=== PATIENT | female | born 1955 | race Caucasian/White ===

== ENCOUNTER 2021-08-05 13:46 | Outpatient (REF) | payer MEDICARE, SELFPAY ==
--- NOTE | ~2021-08-05 | XR_ITS ---
EXAMINATION: XR CHEST CLINICAL INFORMATION: Cough COMPARISON: None TECHNIQUE: 2 views of the chest were obtained. FINDINGS: Cardiac silhouette is normal in size. The lungs are well aerated. No gross lobar consolidation. Lung markings are slightly more prominent projecting over the right lung base, nonspecific. No pleural effusion or pneumothorax. Mild degenerative changes of the spine. XR/XR chest 2V IMPRESSION: Lung markings are slightly more prominent projecting over the right lung base. This is a nonspecific finding. This may represent nothing more than attenuation artifact, however, a developing infiltrate would also be within the differential. Unfortunately there are no prior images available for comparison. Clinical correlation is recommended.
== END 2021-08-05 13:47 | disposition home or self-care (01) ==
LOC: HO.HMGCX 13:46
PROVIDERS: PCP Internal Medicine; Visit Provider Physician Assistant
DX: R05.9 Cough, unspecified (principal)
CPT/HCPCS: 71046

== ENCOUNTER 2021-09-01 15:37 | Outpatient (REF) | payer MEDICARE, SELFPAY ==
--- NOTE | ~2021-09-01 | XR_ITS ---
EXAMINATION: XR CHEST CLINICAL INFORMATION: Covid 19 COMPARISON: August 05, 2021 TECHNIQUE: 2 views of the chest were obtained. FINDINGS: There is a region of scarring noted within the right middle lobe. Scarring noted at the left lung base. No confluent pneumonitis identified. No pneumothorax or pleural effusion. Heart normal size. No evidence of. XR/XR chest 2V IMPRESSION: No acute disease.
== END 2021-09-01 15:38 | disposition home or self-care (01) ==
LOC: HO.HMGCX 15:37
PROVIDERS: Visit Provider Internal Medicine
DX: U07.1 COVID-19 (principal)
CPT/HCPCS: 71046

== ENCOUNTER 2021-12-15 11:23 | Outpatient (REF) | payer MEDICARE, SELFPAY ==
[2021-12-15 13:55] LABS: MANUAL DIFF FLAG NO
[2021-12-15 13:58] LABS: Basophils Percent Auto 0.1 % (0-2); Eosinophils Absolute Auto 0.1 X10*3/uL (0.0-0.4); Hematocrit 42.5 % (37.0-47.0); Hemoglobin 14.2 g/dl (12.0-16.0); Imm Gran Abs Auto 0.06 X10*3/uL (0.00-0.03); Imm Gran Pct Auto 0.8 % (0.0-0.4); Lymphocytes Absolute Auto 2.5 X10*3/uL (1.2-4.9); Lymphocytes Percent Auto 32.7 % (20-40); Mean Corpuscular HGB Conc 33.4 g/dl (31.0-35.0); Mean Corpuscular Hemoglobin 31.6 pg (27.0-33.0); Mean Corpuscular Volume 94.7 fL (80.0-98.0); Mean Platelet Volume 11.3 fL (9.4-12.3); Monocytes Absolute Auto 0.6 X10*3/uL (0.1-1.2); Monocytes Percent Auto 7.2 % (2-11); Neutrophils Absolute Auto 4.5 x10*3/uL (2.0-8.3); Neutrophils Percent Auto 58.2 % (45-73); Platelet Count 257 X10*3/uL (160-400); Red Blood Count 4.49 X10*6/uL (4.20-5.50); Red Cell Distribution Width 13.4 % (11.0-16.0); White Blood Count 7.8 X10*3/uL (4.8-10.8)
[2021-12-15 14:13] LABS: Alanine Aminotransferase 15 U/L (0-31); Alkaline Phosphatase 66 U/L (39-117); Anion Gap 9 (12-20); Aspartate Amino Transferase 20 U/L (5-31); Bilirubin Total 0.4 mg/dL (0.0-1.0); Blood Urea Nitrogen 10 mg/dL (9-16); Calcium 9.2 mg/dL (8.4-10.2); Carbon Dioxide 30 mmol/L (22-29); Chloride 106 mmol/L (96-108); Estimated Glomerular Filt Rate > 60; Glucose Random 73 mg/dL (60-115); Potassium 4.1 mmol/L (3.3-5.1); Sodium 141 mmol/L (135-145); Total Protein 6.2 g/dL (6.5-8.0)
[2021-12-15 14:35] LABS: TSH reflex Free T4 1.03 uIU/mL (0.32-4.0)
[2021-12-17 04:47] LABS: LDL Cholesterol Direct 169 mg/dL (<100)
== END 2021-12-15 11:24 | disposition home or self-care (01) ==
LOC: HO.HMGCLDS 11:23
PROVIDERS: PCP Internal Medicine; Visit Provider Internal Medicine
DX: E78.9 Disorder of lipoprotein metabolism, unspecified (principal); F33.41 Major depressive disorder, recurrent, in partial remission; G47.9 Sleep disorder, unspecified; I10 Essential (primary) hypertension; Z72.0 Tobacco use
CPT/HCPCS: 36415; 80053; 83721; 84443; 85025

== ENCOUNTER → 2022-01-17 12:20 | Outpatient (BNVA) | payer MEDICARE, SELFPAY | PROVIDERS: PCP Internal Medicine; Referring Provider Internal Medicine; Visit Provider Nurse Practitioner | DX: K58.2 Mixed irritable bowel syndrome (principal); K80.80 Other cholelithiasis without obstruction; K21.9 Gastro-esophageal reflux disease without esophagitis; R11.2 Nausea with vomiting, unspecified; I10 Essential (primary) hypertension; E78.00 Pure hypercholesterolemia, unspecified; F17.210 Nicotine dependence, cigarettes, uncomplicated; Z88.2 Allergy status to sulfonamides; Z88.8 Allergy status to other drugs, medicaments and biological substances | CPT/HCPCS: 99202 ==

== ENCOUNTER 2022-01-18 11:13 | Outpatient (REF) | payer MEDICARE, SELFPAY ==
--- NOTE | 2022-01-18 13:10 | PFT_ITS ---
FLOWS: FEV1 113% of predicted at 2.69 L. FVC 107% of predicted at 3.36 L. FEV1 to FVC ratio of 0.80. No bronchodilator response except in small to medium airways. LUNG VOLUMES: Total lung capacity 103% of predicted at 5.22 L. Residual volume 86% of predicted at 1.83 L. Slow vital capacity 115% of predicted at 3.39 L. Expiratory reserve volume 76% of predicted at 0.58 L. Diffusion capacity is moderately decreased. In comparison to pulmonary function test from February of 2015, FEV1, FVC, RV, and SVC have been without significant changes; total lung capacity has increased by 0.22 L; expiratory reserve volume has increased by 0.36 L; diffusion capacity has been without significant changes. IMPRESSION: No obstructive or restrictive ventilatory defect. No bronchodilator response except in small to medium airways. Decreased diffusion capacity suggests emphysema. MD DEBI Anderson/MODL / [id number]
== END 2022-01-18 11:14 | disposition home or self-care (01) ==
LOC: HO.RESP 11:13
PROVIDERS: PCP Internal Medicine; Visit Provider Internal Medicine
DX: R06.02 Shortness of breath (principal); Z72.0 Tobacco use
CPT/HCPCS: 94060; 94727; 94729

== ENCOUNTER → 2022-02-10 10:33 | Outpatient (BNVA) | payer MEDICARE, SELFPAY | PROVIDERS: PCP Internal Medicine; Visit Provider Internal Medicine | DX: U09.9 Post COVID-19 condition, unspecified (principal); J43.9 Emphysema, unspecified; F17.210 Nicotine dependence, cigarettes, uncomplicated | CPT/HCPCS: 99202 ==

== ENCOUNTER 2022-03-21 09:56 | Outpatient (REF) | payer MEDICARE, SELFPAY ==
[2022-03-24 08:21] LABS: HPV mRNA E6/E7 rflx Not Detected (Not Detected)
== END 2022-03-21 09:57 | disposition home or self-care (01) ==
LOC: HO.LAB 09:56
PROVIDERS: PCP Internal Medicine; Visit Provider Obstetrics & Gynecology
DX: Z01.419 Encounter for gynecological examination (general) (routine) without abnormal findings (principal); Z11.51 Encounter for screening for human papillomavirus (HPV)
CPT/HCPCS: 87624; 88142

== ENCOUNTER → 2022-04-04 10:46 | Outpatient (BNVA) | payer MEDICARE, SELFPAY | PROVIDERS: PCP Internal Medicine; Visit Provider Internal Medicine | DX: R05.9 Cough, unspecified (principal); Z72.0 Tobacco use | CPT/HCPCS: 99212 ==

== ENCOUNTER → 2022-04-26 11:02 | Outpatient (BNVA) | payer MEDICARE, SELFPAY | PROVIDERS: PCP Internal Medicine; Visit Provider Nurse Practitioner | DX: K58.2 Mixed irritable bowel syndrome (principal); Z90.49 Acquired absence of other specified parts of digestive tract | CPT/HCPCS: 99212 ==

== ENCOUNTER 2022-07-22 13:26 | Outpatient (REF) | payer MEDICARE, SELFPAY ==
--- NOTE | ~2022-07-22 | CT_ITS ---
EXAMINATION: CT CHEST SCREENING CLINICAL INFORMATION: Current smoker. 36 pack-year history. COMPARISON: Previous chest x-ray, most recent August 2021. TECHNIQUE: Multidetector volumetric CT imaging of the chest is performed without contrast using low dose technique. Additional 2D coronal and sagittal reformatted images and axial 3D maximum intensity projection (MIP) images are generated on the CT workstation. This CT examination was performed using dose optimization techniques as appropriate, variously including the following: *Automated exposure control *Adjustment of mA and/or kV according to patient size (this includes techniques or standardized protocols for targeted exams where dose is matched to indication/reason for exam; i.e. extremities or head) *Use of iterative reconstruction technique DLP: 50 mGy-cm. FINDINGS: LUNGS: There is scarring or subsegmental atelectasis at the lung bases in the right middle lobe and lingula. There are patchy areas of increased ground-glass attenuation at the lung bases in the bilateral lower lobes; on the right, dependently in the right lower lobe posterior medially axial image 262, laterally axial image 321 and posteriorly axial image 368 series 5; and on the left in the dependent posterior left lower lobe, for example axial image 374 series 5 and more superior posterior medially, adjacent to the spine axial image 252 series 5. Appearance is questionable for early interstitial lung disease versus dependent atelectasis. Follow-up imaging in the prone position would help differentiate this. No pulmonary nodule. No endobronchial or endotracheal lesion. MEDIASTINUM: Heart size is normal. Trace pericardial effusion or thickening. Mild coronary artery calcification. Normal caliber thoracic aorta. No enlarged hilar or mediastinal lymph nodes. CORONARY ARTERY CALCIFICATION: Mild. PLEURA: There is no pleural effusion. No pleural mass or thickening. AXILLA: No lymphadenopathy. UPPER ABDOMEN: The gallbladder has been removed. OSSEOUS STRUCTURES: Degenerative changes of the spine. CT/CT lung screening IMPRESSION: No pulmonary nodule is seen. Subsegmental atelectasis in the right middle lobe and lingula. Bilateral lower lobe peripheral or subpleural areas of increased ground-glass attenuation. Appearance is questionable for early interstitial lung disease versus dependent atelectasis. Prone imaging on subsequent exam would help differentiate this. Mild coronary artery calcification. Trace pericardial effusion or thickening. ASSESSMENT: Lung-RADS category 2: Benign. RECOMMENDATION: Annual low-dose chest CT follow-up recommended.
== END 2022-07-22 13:27 | disposition home or self-care (01) ==
LOC: HO.CT 13:26
PROVIDERS: PCP Internal Medicine; Visit Provider Physician Assistant Medical
DX: Z12.2 Encounter for screening for malignant neoplasm of respiratory organs (principal); F17.210 Nicotine dependence, cigarettes, uncomplicated
CPT/HCPCS: 71271; G0296

== ENCOUNTER → 2022-08-23 11:11 | Outpatient (BNVA) | payer MEDICARE, SELFPAY | PROVIDERS: PCP Internal Medicine; Visit Provider Nurse Practitioner | DX: K91.5 Postcholecystectomy syndrome (principal); K58.2 Mixed irritable bowel syndrome; K21.9 Gastro-esophageal reflux disease without esophagitis | CPT/HCPCS: 99212 ==

== ENCOUNTER 2022-09-13 09:42 | Outpatient (REF) | payer MEDICARE, SELFPAY ==
[2022-09-13 11:32] LABS: MANUAL DIFF FLAG NO
[2022-09-13 11:44] LABS: Basophils Percent Auto 0.2 % (0-2); Eosinophils Absolute Auto 0.1 X10*3/uL (0.0-0.4); Eosinophils Percent Auto 1.3 % (0-4); Hematocrit 43.3 % (37.0-47.0); Hemoglobin 14.5 g/dl (12.0-16.0); Imm Gran Abs Auto 0.01 X10*3/uL (0.00-0.03); Imm Gran Pct Auto 0.2 % (0.0-0.4); Lymphocytes Absolute Auto 2.3 X10*3/uL (1.2-4.9); Lymphocytes Percent Auto 36.4 % (20-40); Mean Corpuscular HGB Conc 33.5 g/dl (31.0-35.0); Mean Corpuscular Hemoglobin 30.7 pg (27.0-33.0); Mean Corpuscular Volume 91.5 fL (80.0-98.0); Mean Platelet Volume 10.9 fL (9.4-12.3); Monocytes Absolute Auto 0.5 X10*3/uL (0.1-1.2); Neutrophils Absolute Auto 3.4 x10*3/uL (2.0-8.3); Neutrophils Percent Auto 53.9 % (45-73); Platelet Count 293 X10*3/uL (160-400); Red Blood Count 4.73 X10*6/uL (4.20-5.50); White Blood Count 6.3 X10*3/uL (4.8-10.8)
[2022-09-13 12:02] LABS: Appearance Urine Cloudy; Color Urine Yellow; Glucose Urine UA Negative (Negative); Leukocyte Esterase Urine Small (1+) (Negative); Nitrite Urine Positive (Negative); PH 5.5 (5.0-9.0); Specific Gravity - Urine >= 1.030 (1.005-1.025); UMIC TRIGGER UACC YES; Urine Blood Negative (Negative); Urine Ketones Negative (Negative); Urine Protein Trace mg/dL (Neg-Trace)
[2022-09-13 12:14] LABS: Alanine Aminotransferase 18 U/L (0-31); Alkaline Phosphatase 82 U/L (39-117); Anion Gap 13 (12-20); Aspartate Amino Transferase 20 U/L (5-31); Bilirubin Total 0.6 mg/dL (0.0-1.0); Blood Urea Nitrogen 9 mg/dL (9-16); Calcium 9.3 mg/dL (8.4-10.2); Carbon Dioxide 25 mmol/L (22-29); Chloride 110 mmol/L (96-108); Estimated Glomerular Filt Rate > 60; Glucose Random 95 mg/dL (60-115); Potassium 4.5 mmol/L (3.3-5.1); Sodium 143 mmol/L (135-145); TSH reflex Free T4 0.84 uIU/mL (0.32-4.0)
[2022-09-13 13:07] LABS: UACC Culture Trigger YES; WBC Urine 21-50 /HPF (0-5)
[2022-09-13 13:08] LABS: Bacteria Urine 2+ (None Seen); RBC Urine 0-2 /HPF (0-2)
[2022-09-13 13:10] LABS: Hyaline Casts Urine 0-2 /LPF (0-2)
[2022-09-14 07:26] LABS: LDL Cholesterol Direct 129 mg/dL (<100)
== END 2022-09-13 09:43 | disposition home or self-care (01) ==
LOC: HO.HMGCLDS 09:42
PROVIDERS: PCP Internal Medicine; Visit Provider Internal Medicine
DX: I10 Essential (primary) hypertension (principal)
CPT/HCPCS: 36415; 80053; 81001; 81003; 83721; 84443; 84484; 85025; 87086

== ENCOUNTER → 2022-12-20 15:31 | Outpatient (BNVA) | payer MEDICARE, SELFPAY | PROVIDERS: PCP Internal Medicine; Visit Provider Nurse Practitioner | DX: K91.5 Postcholecystectomy syndrome (principal); K21.9 Gastro-esophageal reflux disease without esophagitis; K58.2 Mixed irritable bowel syndrome | CPT/HCPCS: 99212 ==

== ENCOUNTER → 2023-01-31 15:28 | Outpatient (BNVA) | payer MEDICARE, SELFPAY | PROVIDERS: PCP Internal Medicine; Referring Provider Internal Medicine; Visit Provider Nurse Practitioner | DX: K91.5 Postcholecystectomy syndrome (principal); K21.9 Gastro-esophageal reflux disease without esophagitis; K58.2 Mixed irritable bowel syndrome | CPT/HCPCS: 99212 ==

== ENCOUNTER 2023-04-07 12:15 | Outpatient (REF) | payer MEDICARE, SELFPAY ==
[2023-04-07 13:43] LABS: MANUAL DIFF FLAG NO
[2023-04-07 13:54] LABS: Basophils Percent Auto 0.1 % (0-2); Eosinophils Absolute Auto 0.2 X10*3/uL (0.0-0.4); Eosinophils Percent Auto 2.1 % (0-4); Hematocrit 40.7 % (37.0-47.0); Hemoglobin 13.7 g/dl (12.0-16.0); Imm Gran Abs Auto 0.03 X10*3/uL (0.00-0.03); Imm Gran Pct Auto 0.4 % (0.0-0.4); Lymphocytes Absolute Auto 2.3 X10*3/uL (1.2-4.9); Lymphocytes Percent Auto 32.8 % (20-40); Mean Corpuscular HGB Conc 33.7 g/dl (31.0-35.0); Mean Corpuscular Hemoglobin 31.4 pg (27.0-33.0); Mean Corpuscular Volume 93.1 fL (80.0-98.0); Mean Platelet Volume 10.9 fL (9.4-12.3); Monocytes Absolute Auto 0.6 X10*3/uL (0.1-1.2); Neutrophils Absolute Auto 3.9 x10*3/uL (2.0-8.3); Neutrophils Percent Auto 55.6 % (45-73); Platelet Count 259 X10*3/uL (160-400); Red Blood Count 4.37 X10*6/uL (4.20-5.50); Red Cell Distribution Width 13.6 % (11.0-16.0); White Blood Count 7.1 X10*3/uL (4.8-10.8)
[2023-04-07 14:07] LABS: Alanine Aminotransferase 20 U/L (0-31); Albumin Level 3.8 g/dL (3.5-5.0); Alkaline Phosphatase 87 U/L (39-117); Anion Gap 12 (12-20); Aspartate Amino Transferase 25 U/L (5-31); Bilirubin Total 0.9 mg/dL (0.0-1.0); Blood Urea Nitrogen 9 mg/dL (9-16); Calcium 9.2 mg/dL (8.4-10.2); Carbon Dioxide 27 mmol/L (22-29); Chloride 106 mmol/L (96-108); Estimated Glomerular Filt Rate > 60; Glucose Random 118 mg/dL (60-115); Potassium 4.1 mmol/L (3.3-5.1); Sodium 141 mmol/L (135-145); Total Protein 5.9 g/dL (6.5-8.0)
== END 2023-04-07 12:16 | disposition home or self-care (01) ==
LOC: HO.HMGCLDS 12:15
PROVIDERS: PCP Internal Medicine; Visit Provider Internal Medicine
DX: I10 Essential (primary) hypertension (principal); E78.5 Hyperlipidemia, unspecified; J44.9 Chronic obstructive pulmonary disease, unspecified; K21.9 Gastro-esophageal reflux disease without esophagitis; Z72.0 Tobacco use
CPT/HCPCS: 36415; 80053; 85025

== ENCOUNTER → 2023-04-17 10:20 | Outpatient (BNVA) | payer MEDICARE, SELFPAY | PROVIDERS: PCP Internal Medicine; Visit Provider Internal Medicine | DX: J44.9 Chronic obstructive pulmonary disease, unspecified (principal); R05.9 Cough, unspecified; F17.210 Nicotine dependence, cigarettes, uncomplicated | CPT/HCPCS: 99212 ==

== ENCOUNTER → 2023-05-01 14:09 | Outpatient (BNVA) | payer MEDICARE, SELFPAY | PROVIDERS: PCP Internal Medicine; Visit Provider Obstetrics & Gynecology | DX: Z01.419 Encounter for gynecological examination (general) (routine) without abnormal findings (principal) | CPT/HCPCS: G0101 ==

== ENCOUNTER 2023-05-26 09:08 | Outpatient (AMB) | payer MEDICARE, SELFPAY ==
--- NOTE | 2023-05-26 09:10 | MHC.PC.OV ---
Vital Signs 05/26/23 09:12 Height 5 ft 5 in Weight 165 lb BMI 27.5 BP 128/74 Blood Pressure Location Rt brachial Position Sitting Pulse 74 Pulse Source Pulse Oximeter Pulse Oximetry (%) 98 Intake Visit Reasons: 4 Month follow up [employer] [facility] Required: No Accompanied by: Self / Same As Patient Allergies Sulfa (Sulfonamide Antibiotics) Allergy (Mild, Verified 05/26/23 09:10) HIVES inositol niacinate [Niacin No Flush] Allergy (Unknown, Verified 05/26/23 09:10) N/V niacin [Niacin No Flush] Allergy (Unknown, Verified 05/26/23 09:10) N/V Medication List - Last Reconciled 05/26/23 by Pepe Murrieta MD atenolol 25 mg PO DAILY 90 days escitalopram oxalate 10 mg PO DAILY losartan 50 mg PO BID 90 days meloxicam 15 mg PO DAILY PRN pantoprazole 40 mg PO BID valacyclovir 500 mg PO DAILY PRN Tobacco use date assessed: 01/13/23 Fall risk assessment: No Falls in past year Last assessed Fall Risk: 05/26/23 Dental Screening Dental Screen Date: 05/26/23 Did you have a dental visit in the last 12 months?: Yes Did you have a dental problem in the last 6 months where you did not have access to dental care?: No Was dental information given to patient?: Patient has dentist HPI 4 Month follow up HPI Details Patient is 67-year-old female came in today for regular follow-up Last year CT scan of abdomen at [facility] showed some abnormality of her bladder I did place a referral for her to see urologist however patient is not sure if she had seen 1 and I do not have any notes in chart I used a new referral for her she does have sensation urinary tract infection frequently and also have urinary incontinence and is on Detrol Chronic GERD: Continue pantoprazole 40 mg, this is gastroenterology patient has an upcoming appointment with [facility] Lipid disorder: She was started on simvastatin but patient stopped she says that it was causing cramping in her muscles Anxiety/depression is better with Lexapro 10 mg Blood pressure is stable continue medications, patient is on atenolol 20 losartan 50 mg Labs were done last month reviewed Follow-up 4 months [facility] Medical History Anxiety Cough Difficulty sleeping Hyperlipidemia Hypertension, essential Insomnia Osteopenia (~2009) Personal history of nicotine dependence [id number] condition Restless leg syndrome Surgical History History of cholecystectomy (~03/2022) History of colonoscopy History of endometrial ablation History of esophagogastroduodenoscopy (EGD) Family History Father Diabetes Liver cancer Mother HTN (hypertension) Other Mental health disorder Substance use disorder Social History Housing: House Alcohol intake: never Patient Tobacco Use Status: Former Tobacco user Tobacco use type: Cigarette Years Smoked: (onset 20yo, 1/2ppd x 46yrs, 23pyh) e-Cigarette/Vaping Use: Never Used Second Hand Smoke Exposure: Yes service: No Current occupational status: employed Cognitive needs: No Hearing needs: No Vision needs: Yes Female Reproductive History Menstrual Age of Menarche: 11 Questionnaire PHQ-9 Over the last 2 weeks, how often have you been bothered by any of the following problems? 1. Little interest or pleasure in doing things: not at all 2. Feeling down, depressed, or hopeless: not at all 3. Trouble falling or staying asleep, or sleeping too much: not at all 4. Feeling tired or having little energy: not at all 5. Poor appetite or overeating: not at all 6. Feeling bad about yourself - or that you are a failure or have let yourself or your family down: not at all 7. Trouble concentrating on things, such as reading the newspaper or watching television: not at all 8. Moving or speaking so slowly that other people could have noticed. Or the opposite - being so fidgety or restless that you have been moving around a lot more than usual: not at all 9. Thoughts that you would be better off or of hurting yourself in some way: not at all Total score: 0 Depression Screening Interpretation: Negative 34046 - PHQ-9 Billing: Yes Source: Developed by Drs. Vinnie Draper, Casie RibeiroRainer and colleagues, with an educational ella from [employer]. Thrive Questionnaire Date Thrive assessed: 05/26/23 I am a: Patient What is your living situation today?: I have a steady place to live Within the past 12 months, did the food you bought not last and you didn't have the money to get more?: Never true Within the past 12 months, did you worry whether your food would run out before you got money to buy more?: Never true Do you have trouble paying for medicines?: No Do you have trouble getting transportation to medical appointments?: No Do you have trouble paying your heating and electricity bill?: No Do you have trouble taking care of your child, family member or friend?: No Do you have trouble with day-to-day activities such as bathing, preparing meals, shopping, managing finances, etc.?: No Are you currently unemployed and looking for a job?: No Are you interested in more education?: No Please select the resources that you would like help with: None Currently or been in a relationship where the following occur: no concerns reported KELLY-7 AMB Questionnaire KELLY-7 Date KELLY - 7 assessed: 05/26/23 Feeling nervous, anxious, or on edge: 0 = Not at all Not being able to stop or control worryin = Not at all Worrying too much about different things: 0 = Not at all Trouble relaxin = Not at all Being so restless that it is hard to sit still: 0 = Not at all Becoming easily annoyed or irritable: 0 = Not at all Feeling afraid as if something awful might happen: 0 = Not at all Total KELLY-7 score (0-4 normal; 5-9 mild; 10-14 moderate; 15-21 severe): 0 Source: Developed by Drs. Vinnie Draper, Rainer George and colleagues, with an educational ella from [employer]. KELLY-7 Assessment Billing KELLY-7 Assessment Tool: KELLY-7 Assessment 75839 Review of Systems Const Denies chills and Denies fever(s) ENT Denies epistaxis and Denies nasal discharge Card Denies chest pain Resp Denies chest congestion, Denies cough and Denies hemoptysis GI Denies diarrhea and Denies nausea Skin/Breast Denies rash Neuro Reports no additional complaints Psych Reports no additional complaints Endo Reports no additional complaints Physical exam (Primary Care) Vital Signs: Last Vital Signs Pulse 74 05/26/23 09:12 BP 128/74 05/26/23 09:12 Pulse Ox 98 05/26/23 09:12 BMI result Body Mass Index 27.5 Tobacco/Smoking Status: Tobacco use Status Tobacco use date assessed 01/13/23 05/26/23 09:12 Patient Tobacco Use Status Former Tobacco user 05/26/23 09:14 Tobacco use type Cigarette 05/26/23 09:14 e-Cigarette/Vaping Use Never Used 05/26/23 09:14 PHQ-9: PHQ-9 Score PHQ-9: Total score 0 05/26/23 10:54 Depression Screening Interpretation: Negative Thrive Assessment: Date of Thrive Assessment Date Thrive assessed 05/26/23 05/26/23 09:16 Currently or been in a relationship where the following occur: no concerns reported Const General: cooperative, comfortable and no acute distress Orientation/consciousness: patient oriented x3 HENMT Head: Yes normocephalic Eyes General: appearance normal, both eyes and all related structures Neck Neck: Yes supple Resp Effort & Inspection: normal respiratory effort, no cough and no stridor Cardio Rhythm: regular rhythm Heart sounds: S1 normal heart sound present and S2 normal heart sound present Skin General skin exam: turgor normal Neuro General: patient oriented x3, tone normal and moves all extremities Extrem Right lower extremity: no edema Left lower extremity: no edema Assessment and Plan Assessment & Plan (1) Depression, major, recurrent, in partial remission: Code(s): F33.41 - Major depressive disorder, recurrent, in partial remission (2) Hypertension, essential: Code(s): I10 - Essential (primary) hypertension (3) Urine incontinence: Code(s): R32 - Unspecified urinary incontinence (4) Bladder disorder: Code(s): N32.9 - Bladder disorder, unspecified (5) GERD (gastroesophageal reflux disease): Code(s): K21.9 - Gastro-esophageal reflux disease without esophagitis (6) Tobacco abuse: Comment: Patient has history of smoking 1 pack per day for about 40 years and now down to 5-6 cigarettes a day . Counseled thoroughly, and advised to quit, she will try to do it on her own. Code(s): Z72.0 - Tobacco use (7) Emphysema lung: Comment: Because of decreased diffusion capacity, it seems that she may have pulmonary emphysema, even though it was not reported on chest x-ray. Code(s): J43.9 - Emphysema, unspecified (8) Anxiety: Code(s): F41.9 - Anxiety disorder, unspecified (9) Hyperlipidemia: Code(s): E78.5 - Hyperlipidemia, unspecified Plan Patient is 67-year-old female came in today for regular follow-up Last year CT scan of abdomen at [facility] showed some abnormality of her bladder I did place a referral for her to see urologist however patient is not sure if she had seen 1 and I do not have any notes in chart I used a new referral for her she does have sensation urinary tract infection frequently and also have urinary incontinence and is on Detrol Chronic GERD: Continue pantoprazole 40 mg, this is gastroenterology patient has an upcoming appointment with [facility] Lipid disorder: She was started on simvastatin but patient stopped she says that it was causing cramping in her muscles Anxiety/depression is better with Lexapro 10 mg Blood pressure is stable continue medications, patient is on atenolol 20 losartan 50 mg Labs were done last month reviewed Follow-up 4 months Orders: Referrals Urology Referral N32.9 - Bladder disorder, unspecified, R32 - Unspecified urinary incontinence Coding Level of Care Code Est Pt Level 4 (21787) Diagnoses Depression, major, recurrent, in partial remission F33.41 Hypertension, essential I10 Urine incontinence R32 Bladder disorder N32.9 GERD (gastroesophageal reflux disease) K21.9 Tobacco abuse Z72.0 Emphysema lung J43.9 Anxiety F41.9 Hyperlipidemia E78.5 Additional Codes KELLY-7 Assessment Billing - KELLY-7 Assessment Tool: KELLY-7 Assessment [id number] ([id number])
[2023-05-26 09:12] VITALS: BP 128/74; PULSE 74; O2SAT 98; BMI 27.5
== END 2023-05-26 09:38 | disposition home or self-care (01) ==
PROVIDERS: Visit Provider Internal Medicine
DX: I10 Essential (primary) hypertension (principal); F33.41 Major depressive disorder, recurrent, in partial remission; F41.9 Anxiety disorder, unspecified; K21.9 Gastro-esophageal reflux disease without esophagitis; J43.9 Emphysema, unspecified; R32 Unspecified urinary incontinence; N32.9 Bladder disorder, unspecified; Z72.0 Tobacco use; E78.5 Hyperlipidemia, unspecified
CPT/HCPCS: 99214

== ENCOUNTER 2023-07-10 09:16 | Outpatient (AMB) | payer MEDICARE, SELFPAY ==
--- NOTE | 2023-07-10 09:21 | A.OFFVIS_ITS ---
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 07/10/2023? She presents today for an evaluation for bladder disorder/incontinence. She was referred by her PCP Review of PCP's note indicates:'Last year CT scan of abdomen at [facility] showed some abnormality of her bladder. I did place a referral for her to see urologist however patient is not sure if she had seen 1 and I do not have any notes in chart. I used a new referral for her she does have sensation urinary tract infection frequently and also have urinary incontinence and is on Detrol' She is having on and off urinary incontinence. She reports nocturia x 3-4. She states that yesterday she was up 7 times at night to urinate. She states that she used to wear pads on and off due her variable urinary incontinence in the past. She has discontinued taking Detrol. She has had gall bladder surgery in 03/2022. She denies any hematuria. Evaluation today?UA? leukocytes: 1 +; blood: negative. Plan: US of the retroperitoneum was ordered. Follow up office Cystoscopy in 10 weeks. Discussed behavioral modifications for her low urinary tract symptoms of urinary incontinence. Avoid dietary bladder irritants including caffeine, carbonated beverages, and timed voiding. [facility] Medical History Cough Personal history of nicotine dependence [id number] condition Hypertension, essential Insomnia Restless leg syndrome Difficulty sleeping Anxiety Osteopenia (~2009) Hyperlipidemia Surgical History History of cholecystectomy (~03/2022) History of colonoscopy History of esophagogastroduodenoscopy (EGD) History of endometrial ablation Family History Father Diabetes Liver cancer Mother HTN (hypertension) Other Mental health disorder Substance use disorder Social History Housing: House Alcohol intake: never Patient Tobacco Use Status: Former Tobacco user Tobacco use type: Cigarette Years Smoked: (onset 20yo, 1/2ppd x 46yrs, 23pyh) e-Cigarette/Vaping Use: Never Used Second Hand Smoke Exposure: Yes service: No Current occupational status: employed Cognitive needs: No Hearing needs: No Vision needs: Yes Female Reproductive History Menstrual Age of Menarche: 11 Review of Systems Const All systems reviewed & are unremarkable except as noted in HPI and below Reports no additional complaints Eyes Reports no additional complaints ENT Reports no additional complaints Card Denies dyspnea Resp Denies cough and Denies dyspnea GI Reports no additional complaints Reports no additional complaints Musc Reports no additional complaints Skin/Breast Denies rash and Denies unusual bruising Neuro Reports no additional complaints Psych Reports no additional complaints Endo Reports no additional complaints Ishaan/Lymph Reports no additional complaints Aller/Immun Reports no additional complaints Physical Exam Const General: cooperative, healthy appearing and no acute distress Orientation/consciousness: patient oriented x3 HEENT Head: Yes normal to inspection, Yes normocephalic and Yes atraumatic Eyes Conjunctivae: conjunctivae normal Neck Neck: Yes normal visual inspection and Yes trachea midline Chest Chest palpation & inspection: normal inspection of the chest Resp Effort & Inspection: normal respiratory effort Cardio Rate: regular rate GI Inspection: Yes normal to inspection Skin General skin exam: no rashes or lesions noted Neuro General: patient oriented x3 Extrem General: No edema Psych Appearance: grossly normal Office Procedures Post Void Residual Post Residual Void Post Void Residual (PVR): 13 [id number] Void Residual by ultrasound Results AMB Urinalysis, Automated UA Leukoctes 100 Carie/uL Last Edit by SHAYY Butterfield on 07/10/23 09:53 1+, 70 Carie/uL Sammie Viera 07/10/23 09:53 UA Nitrite Negative Last Edit by SHAYY Butterfield on 07/10/23 09:53 UA Urobilinogen 0.2 mg/dL Last Edit by Sammie Viera Tom on 07/10/23 09:5 3 UA Protein 100 mg/dL Last Edit by Sammie Viera [facility] on 07/10/23 09:53 15 mg/dL Sammie Viera 07/10/23 09:53 UA pH 6.0 Last Edit by Sammie Viera [facility] on 07/10/23 09:53 UA Blood 0 Martin/uL Last Edit by Sammie Viera [facility] on 07/10/23 09:53 UA Specific Picher 1.020 Last Edit by Sammie Viera [facility] on 07/10/23 09: 53 UA Ketone Negative Last Edit by Sammie Viera [facility] on 07/10/23 09:53 UA Bilirubin 0 mg/dL Last Edit by Sammie Viera [facility] on 07/10/23 09:53 UA Glucose 0 mg/dL Last Edit by Sammie Viera [facility] on 07/10/23 09:53 Results Reviewed Results Reviewed: Laboratory Last Values Urine pH (Auto) 6.0 07/10/23 09:45 Specific Picher (Auto) 1.020 07/10/23 09:45 Urine Protein (Auto) 100 mg/dL 07/10/23 09:45 Glucose (UA)(Auto) 0 mg/dL 07/10/23 09:45 Urine Ketones (Auto) Negative 07/10/23 09:45 Urine Blood (Auto) 0 Martin/uL 07/10/23 09:45 Urine Nitrite (Auto) Negative 07/10/23 09:45 Urine Bilirubin (Auto) 0 mg/dL 07/10/23 09:45 Urine Urobilinogen (Auto) 0.2 mg/dL 07/10/23 09:45 Leukocyte Esterase (Auto) 100 Carie/uL 07/10/23 09:45 Assessment & Plan Assessment & Plan (1) Nocturia: Code(s): R35.1 - Nocturia (2) Urine incontinence: Code(s): R32 - Unspecified urinary incontinence (3) Renal cyst, left: Code(s): N28.1 - Cyst of kidney, acquired (4) Nicotine dependence, cigarettes, uncomplicated: Comment: (Has past history of smoking half pack a day for about 45 years. Luckily she has quit smoking completely, and has no inclination to go back to smoking . SHE IS COMMENDED FOR QUITTING COMPLETELY. SHOULD STILL CONTINUE TO GO FOR ANNUAL LUNG SCREENING PROGRAM. Code(s): F17.210 - Nicotine dependence, cigarettes, uncomplicated Plan US of the retroperitoneum was ordered.? Follow up office Cystoscopy in 10 weeks. Discussed behavioural modifications for her low urinary tract symptoms of urinary incontinence. Avoid dietary bladder irritants including caffeine, carbonated beverages, and timed voiding. Orders: Orders AMB Post Void Residual by ultrasound Today N39.8 - Other specified disorders of urinary system AMB Urinalysis Automated Today Z13.9 - Encounter for screening, unspecified US retroperitoneal comp Today R32 - Unspecified urinary incontinence, R35.1 - Nocturia Patient Instructions: The patient had an opportunity to ask questions regarding treatment plan. All questions were answered. Imaging, Laboratory studies and physical exam results were discussed and reviewed in detail. No major barriers to understanding were identified. The patient expressed understanding and agreement with the above treatment plan.? ? ? The patient is aware they should contact our office by phone for worsening of their current condition or the appearance of new symptoms. Compliance is encouraged with any medications and followup testing that is ordered.? ? ? It is a privilege to be allowed the opportunity to participate in the urologic care of your patient. If you have any questions or concerns regarding treatment for the above conditions please do not hesitate to contact me. The office telephone contact is [phone].? ? ? This note is constructed in part using voice recognition software. While every effort has been made to ensure accuracy student recruiter errors may have been in cluded.? ? ? Yours sincerely,? ? ? Janae Arguello MD? ? Coding Level of Care Code New Pt Level 4 (62166) Diagnoses Nocturia R35.1 Urine incontinence R32 Renal cyst, left N28.1 Nicotine dependence, cigarettes, uncomplicated F17.210 CPT Codes Post Residual Void - PVR CPT Code: 53293-[id number] Void Residual by ultrasound ([id number])
== END 2023-07-10 10:45 | disposition home or self-care (01) ==
PROVIDERS: PCP Internal Medicine; Visit Provider Urology
DX: R35.1 Nocturia (principal); R32 Unspecified urinary incontinence; N28.1 Cyst of kidney, acquired; F17.210 Nicotine dependence, cigarettes, uncomplicated; Z13.9 Encounter for screening, unspecified
CPT/HCPCS: 99204

== ENCOUNTER → 2023-07-10 09:16 | Outpatient (BNVA) | payer MEDICARE, SELFPAY | PROVIDERS: PCP Internal Medicine; Visit Provider Urology | DX: R35.1 Nocturia (principal); R32 Unspecified urinary incontinence; N28.1 Cyst of kidney, acquired; F17.210 Nicotine dependence, cigarettes, uncomplicated | CPT/HCPCS: 51798; 81003; 99202 ==

== ENCOUNTER → 2023-09-18 10:16 | Outpatient (BNVA) | payer MEDICARE, SELFPAY | PROVIDERS: PCP Internal Medicine; Visit Provider Urology ==

== ENCOUNTER 2023-09-19 15:08 | Outpatient (AMB) | payer MEDICARE, SELFPAY ==
[2023-09-19 15:17] VITALS: BP 136/92; PULSE 70; O2SAT 96; BMI 26.8
--- NOTE | 2023-09-19 15:17 | A.OFFPC_ITS ---
Vital Signs 09/19/23 15:17 Height 5 ft 5 in Weight 161 lb BMI 26.8 BP 136/92 H Blood Pressure Location Rt brachial Position Sitting Pulse 70 Pulse Source Pulse Oximeter Pulse Oximetry (%) 96 Oxygen Delivery Method Room Air Intake Visit Reasons: Sick Visit Allergies Sulfa (Sulfonamide Antibiotics) Allergy (Mild, Verified 09/19/23 15:19) HIVES inositol niacinate [Niacin No Flush] Allergy (Unknown, Verified 09/19/23 15:19) N/V niacin [Niacin No Flush] Allergy (Unknown, Verified 09/19/23 15:19) N/V Medication List - Last Reconciled 09/19/23 by Pepe Murrieta MD atenolol 25 mg PO DAILY 90 days escitalopram oxalate 10 mg PO DAILY losartan 50 mg PO BID 90 days pantoprazole 40 mg PO BID valacyclovir 500 mg PO DAILY PRN Tobacco use date assessed: 09/19/23 Last assessed Fall Risk: 09/19/23 Dental Screening Dental Screen Date: 09/19/23 Did you have a dental visit in the last 12 months?: Yes Did you have a dental problem in the last 6 months where you did not have access to dental care?: No Was dental information given to patient?: Patient has dentist HPI Sick Visit HPI Details Patient came in feeling sick today symptoms started 3 wks ago with cough and chest congestion she says she went to urgent care 2 wks ago, she was told to use decongested an allergy medication [id number] Patient has been using it but still having coughing fits, especially at night She is still having chest congestion and spitting out crackle or phlegm Patient says that she feels exhausted I am treating her with a course of antibiotic and codeine cough syrup to be taken only at night. Patient will return in 10 days to 14 days for follow-up She is requesting some time off, letter provided to be off until next Monday [facility] Medical History Cough Personal history of nicotine dependence [id number] condition Hypertension, essential Insomnia Restless leg syndrome Difficulty sleeping Anxiety Osteopenia (~2009) Hyperlipidemia Surgical History History of cholecystectomy (~03/2022) History of colonoscopy History of esophagogastroduodenoscopy (EGD) History of endometrial ablation Family History Father Diabetes Liver cancer Mother HTN (hypertension) Other Mental health disorder Substance use disorder Housing: House Alcohol intake: never Patient Tobacco Use Status: Former Tobacco user Tobacco use type: Cigarette Years Smoked: (onset 20yo, 1/2ppd x 46yrs, 23pyh) e-Cigarette/Vaping Use: Never Used Second Hand Smoke Exposure: Yes service: No Current occupational status: employed Cognitive needs: No Hearing needs: No Vision needs: Yes Female Reproductive History Menstrual Age of Menarche: 11 Questionnaire PHQ-9 Over the last 2 weeks, how often have you been bothered by any of the following problems? 1. Little interest or pleasure in doing things: more than half the days 2. Feeling down, depressed, or hopeless: more than half the days 3. Trouble falling or staying asleep, or sleeping too much: more than half the days 4. Feeling tired or having little energy: more than half the days 5. Poor appetite or overeating: not at all 6. Feeling bad about yourself - or that you are a failure or have let yourself or your family down: not at all 7. Trouble concentrating on things, such as reading the newspaper or watching television: several days 8. Moving or speaking so slowly that other people could have noticed. Or the opposite - being so fidgety or restless that you have been moving around a lot more than usual: not at all 9. Thoughts that you would be better off or of hurting yourself in some way: not at all Total score: 9 Depression Screening Interpretation: Positive Depression Screening Follow-up: Existing condition and In treatment Depression Screening Done: Yes 20804 - PHQ-9 Billing: Yes Source: Developed by Drs. Vinnie Draper, Casie Ribeiro, Rainer Goodman and colleagues, with an educational ella from [employer]. Thrive Questionnaire Date Thrive assessed: 05/26/23 AUDIT C Alcohol Use Questionnaire (AUDIT-C) 1. How often do you have a drink containing alcohol?: Never 3. How often do you have six or more drinks on one occasion?: Never Total Score: 0 Score Reviewed/Action Taken: Yes KELLY-7 AMB Questionnaire KELLY-7 Date KELLY - 7 assessed: 05/26/23 Source: Developed by Drs. Vinnie Draper, Casie Ribiero, Rainer Goodman and colleagues, with an educational ella from [employer]. Review of Systems Const All systems reviewed & are unremarkable except as noted in HPI and below Physical exam (Primary Care) Vital Signs: Last Vital Signs Pulse 70 09/19/23 15:17 BP 136/92 H 09/19/23 15:17 Pulse Ox 96 09/19/23 15:17 Oxygen Delivery Method Room Air 09/19/23 15:17 BMI result Body Mass Index 26.8 Tobacco/Smoking Status: Tobacco use Status Tobacco use date assessed 09/19/23 09/19/23 15:20 Patient Tobacco Use Status Former Tobacco user 09/19/23 15:19 Tobacco use type Cigarette 09/19/23 15:19 e-Cigarette/Vaping Use Never Used 09/19/23 15:19 Depression Screening Interpretation: Positive Depression Screening Follow-up: Existing condition and In treatment Thrive Assessment: Date of Thrive Assessment Date Thrive assessed 05/26/23 09/19/23 15:19 Const General: no acute distress HENMT Ears: mastoids normal General nose exam: Normal external nose present Throat: Yes posterior oropharynx abnormal Neck Neck: Yes no lymphadenopathy Resp Effort & Inspection: normal respiratory effort Auscultation: clear to auscultation bilaterally Psych Mental Status: mental status grossly normal Assessment and Plan Assessment & Plan (1) Acute bronchitis: Code(s): J20.9 - Acute bronchitis, unspecified Qualifiers: Bronchitis organism: other organism Qualified Code(s): J20.8 - Acute bronchitis due to other specified organisms Plan Patient came in feeling sick today symptoms started 3 wks ago with cough and chest congestion she says she went to urgent care 2 wks ago, she was told to use decongested an allergy medication [id number] Patient has been using it but still having coughing fits, especially at night She is still having chest congestion and spitting out crackle or phlegm Patient says that she feels exhausted I am treating her with a course of antibiotic and codeine cough syrup to be taken only at night. Patient will return in 10 days to 14 days for follow-up She is requesting some time off, letter provided to be off until next Monday Medications: New azithromycin Take 2 tablets today then 1 daily 250 mg PO ONCE 6 tabs 0RF 5 days J06.9 - Acute upper respiratory infection, unspecified codeine-guaifenesin 10-100 mg/5 mL 10 mL PO .qhs 120 mL 0RF cough 10 days Coding Level of Care Code Est Pt Level 3 (14136) Diagnoses Acute bronchitis due to other specified organisms J20.8 Bronchitis organism: other organism
== END 2023-09-19 15:48 | disposition home or self-care (01) ==
PROVIDERS: PCP Internal Medicine; Visit Provider Internal Medicine
DX: J20.8 Acute bronchitis due to other specified organisms (principal)
CPT/HCPCS: 99213

== ENCOUNTER 2023-10-06 13:41 | Outpatient (AMB) | payer MEDICARE, SELFPAY ==
--- NOTE | 2023-10-06 14:05 | MHC.PC.OV ---
Vital Signs 10/06/23 14:06 Height 5 ft 5 in Weight 163 lb BMI 27.1 BP 120/70 Blood Pressure Location Rt brachial Position Sitting Pulse 61 Pulse Source Pulse Oximeter Pulse Oximetry (%) 94 Oxygen Delivery Method Room Air Intake Visit Reasons: Follow Up(Meds ) Allergies Sulfa (Sulfonamide Antibiotics) Allergy (Mild, Verified 10/06/23 14:06) HIVES inositol niacinate [Niacin No Flush] Allergy (Unknown, Verified 10/06/23 14:06) N/V niacin [Niacin No Flush] Allergy (Unknown, Verified 10/06/23 14:06) N/V Medication List - Last Reconciled 10/06/23 by Pepe Murrieta MD atenolol 25 mg PO DAILY 90 days escitalopram oxalate 10 mg PO DAILY losartan 50 mg PO BID 90 days pantoprazole 40 mg PO BID valacyclovir 500 mg PO DAILY PRN Tobacco use date assessed: 10/06/23 Fall risk assessment: 2 + Falls in past year Last assessed Fall Risk: 10/06/23 Dental Screening Dental Screen Date: 10/06/23 Did you have a dental visit in the last 12 months?: Yes Did you have a dental problem in the last 6 months where you did not have access to dental care?: No Was dental information given to patient?: Patient has dentist HPI Follow Up(Meds ) HPI Details Patient is 68-year-old female came in today for regular follow-up Patient have smoker's cough, she had acute bronchitis few months ago and then COVID again. Which has exacerbated her cough Chronic GERD: Continue pantoprazole 40 mg, patient is seeing Gastroenterology [facility] Lipid disorder: She was started on simvastatin but patient stopped she says that it was causing cramping in her muscles Continue diet-controlled Anxiety/depression is better with Lexapro 10 mg Blood pressure is stable continue medications, patient is on atenolol 20 losartan 50 mg Labs were done March of this year she is due for another set of lab Patient has appointment in December Her [facility] paperwork filled patient took few days off when she had acute bronchitis in August [facility] Medical History Cough Personal history of nicotine dependence [id number] condition Hypertension, essential Insomnia Restless leg syndrome Difficulty sleeping Anxiety Osteopenia (~2009) Hyperlipidemia Surgical History History of cholecystectomy (~03/2022) History of colonoscopy History of esophagogastroduodenoscopy (EGD) History of endometrial ablation Family History Father Diabetes Liver cancer Mother HTN (hypertension) Other Mental health disorder Substance use disorder Social History Housing: House Alcohol intake: never Patient Tobacco Use Status: Former Tobacco user Tobacco use type: Cigarette Years Smoked: (onset 20yo, 1/2ppd x 46yrs, 23pyh) e-Cigarette/Vaping Use: Never Used Second Hand Smoke Exposure: Yes service: No Current occupational status: employed Cognitive needs: No Hearing needs: No Vision needs: Yes Female Reproductive History Menstrual Age of Menarche: 11 Questionnaire Thrive Questionnaire Date Thrive assessed: 05/26/23 KELLY-7 AMB Questionnaire KELLY-7 Date KELLY - 7 assessed: 05/26/23 Source: Developed by Drs. Vinnie Draper, Casie Ribeiro, Rainer Goodman and colleagues, with an educational ella from [employer]. Review of Systems Const Denies chills and Denies fever(s) ENT Denies epistaxis and Denies nasal discharge Card Denies chest pain Resp Denies chest congestion and Denies hemoptysis GI Denies diarrhea and Denies nausea Skin/Breast Denies rash Neuro Reports no additional complaints Psych Reports no additional complaints Endo Reports no additional complaints Physical exam (Primary Care) Vital Signs: Last Vital Signs Pulse 61 10/06/23 14:06 BP 120/70 10/06/23 14:06 Pulse Ox 94 10/06/23 14:06 Oxygen Delivery Method Room Air 10/06/23 14:06 BMI result Body Mass Index 27.1 Tobacco/Smoking Status: Tobacco use Status Tobacco use date assessed 10/06/23 10/06/23 14:07 Patient Tobacco Use Status Former Tobacco user 10/06/23 14:07 Tobacco use type Cigarette 10/06/23 14:07 e-Cigarette/Vaping Use Never Used 10/06/23 14:07 Thrive Assessment: Date of Thrive Assessment Date Thrive assessed 05/26/23 10/06/23 14:07 Const General: cooperative, comfortable and no acute distress Orientation/consciousness: patient oriented x3 HENMT Head: Yes normocephalic Eyes General: appearance normal, both eyes and all related structures Neck Neck: Yes supple Resp Effort & Inspection: normal respiratory effort, no cough and no stridor Cardio Rhythm: regular rhythm Heart sounds: S1 normal heart sound present and S2 normal heart sound present Skin General skin exam: turgor normal Neuro General: patient oriented x3, tone normal and moves all extremities Extrem Right lower extremity: no edema Left lower extremity: no edema Assessment and Plan Assessment & Plan (1) Hypertension, essential: Code(s): I10 - Essential (primary) hypertension (2) GERD (gastroesophageal reflux disease): Code(s): K21.9 - Gastro-esophageal reflux disease without esophagitis Qualifiers: Esophagitis presence: without esophagitis Qualified Code(s): K21.9 - Gastro-esophageal reflux disease without esophagitis (3) Depression, major, recurrent, in partial remission: Code(s): F33.41 - Major depressive disorder, recurrent, in partial remission (4) Anxiety: Code(s): F41.9 - Anxiety disorder, unspecified (5) Smokers' cough: Code(s): J41.0 - Simple chronic bronchitis (6) Tired: Code(s): R53.83 - Other fatigue (7) Hyperlipidemia: Code(s): E78.5 - Hyperlipidemia, unspecified Qualifiers: Hyperlipidemia type: pure hypercholesterolemia Qualified Code(s): E78.00 - Pure hypercholesterolemia, unspecified Plan Patient is 68-year-old female came in today for regular follow-up Patient have smoker's cough, she had acute bronchitis few months ago and then COVID again. Which has exacerbated her cough Chronic GERD: Continue pantoprazole 40 mg, patient is seeing Gastroenterology [facility] Lipid disorder: She was started on simvastatin but patient stopped she says that it was causing cramping in her muscles Continue diet-controlled Anxiety/depression is better with Lexapro 10 mg Blood pressure is stable continue medications, patient is on atenolol 20 losartan 50 mg Labs were done March of this year she is due for another set of lab Patient has appointment in December Feeling tired, I have added vitamin-D, B12 and zinc level Her FMLA paperwork filled patient took few days off when she had acute bronchitis in August Orders: Orders Complete Blood Count Auto Diff Today F33.41 - Major depressive disorder, recurrent, in partial remission, F41.9 - Anxiety disorder, unspecified, I10 - Essential (primary) hypertension, J41.0 - Simple chronic bronchitis, J44.9 - Chronic obstructive pulmonary disease, unspecified, K21.9 - Gastro-esophageal reflux disease without esophagitis, R53.83 - Other fatigue Comprehensive Met. Panel Today F33.41 - Major depressive disorder, recurrent, in partial remission, F41.9 - Anxiety disorder, unspecified, I10 - Essential (primary) hypertension, J41.0 - Simple chronic bronchitis, J44.9 - Chronic obstructive pulmonary disease, unspecified, K21.9 - Gastro-esophageal reflux disease without esophagitis LDL Cholesterol Direct Today F33.41 - Major depressive disorder, recurrent, in partial remission, F41.9 - Anxiety disorder, unspecified, I10 - Essential (primary) hypertension, J41.0 - Simple chronic bronchitis, J44.9 - Chronic obstructive pulmonary disease, unspecified, K21.9 - Gastro-esophageal reflux disease without esophagitis Vitamin D 25-OH (D2 and D3) Today F33.41 - Major depressive disorder, recurrent, in partial remission, F41.9 - Anxiety disorder, unspecified, I10 - Essential (primary) hypertension, J41.0 - Simple chronic bronchitis, J44.9 - Chronic obstructive pulmonary disease, unspecified, K21.9 - Gastro-esophageal reflux disease without esophagitis Vitamin B12 Today F33.41 - Major depressive disorder, recurrent, in partial remission, F41.9 - Anxiety disorder, unspecified, I10 - Essential (primary) hypertension, J41.0 - Simple chronic bronchitis, J44.9 - Chronic obstructive pulmonary disease, unspecified, K21.9 - Gastro-esophageal reflux disease without esophagitis Zinc Today F33.41 - Major depressive disorder, recurrent, in partial remission, F41.9 - Anxiety disorder, unspecified, I10 - Essential (primary) hypertension, J41.0 - Simple chronic bronchitis, J44.9 - Chronic obstructive pulmonary disease, unspecified, K21.9 - Gastro-esophageal reflux disease without esophagitis Medications: Refilled atenolol 25 mg PO DAILY 90 tabs 0RF 90 days valacyclovir 500 mg PO DAILY PRN 90 tabs 0RF cold sores Coding Level of Care Code Est Pt Level 4 (80420) Diagnoses Hypertension, essential I10 Gastroesophageal reflux disease without esophagitis K21.9 Esophagitis presence: without esophagitis Depression, major, recurrent, in partial remission F33.41 Anxiety F41.9 Smokers' cough J41.0 Tired R53.83 Pure hypercholesterolemia E78.00 Hyperlipidemia type: pure hypercholesterolemia
[2023-10-06 14:06] VITALS: BP 120/70; PULSE 61; O2SAT 94; BMI 27.1
== END 2023-10-06 17:05 | disposition home or self-care (01) ==
PROVIDERS: PCP Internal Medicine; Visit Provider Internal Medicine
DX: I10 Essential (primary) hypertension (principal); F33.41 Major depressive disorder, recurrent, in partial remission; J41.0 Simple chronic bronchitis; K21.9 Gastro-esophageal reflux disease without esophagitis; F41.9 Anxiety disorder, unspecified; R53.83 Other fatigue; E78.00 Pure hypercholesterolemia, unspecified
CPT/HCPCS: 99214

== ENCOUNTER 2023-10-06 14:27 | Outpatient (REF) | payer MEDICARE, SELFPAY ==
[2023-10-06 16:03] LABS: MANUAL DIFF FLAG NO
[2023-10-06 16:14] LABS: Basophils Percent Auto 0.2 % (0-2); Eosinophils Absolute Auto 0.1 X10*3/uL (0.0-0.4); Eosinophils Percent Auto 1.2 % (0-4); Hemoglobin 14.4 g/dl (12.0-16.0); Imm Gran Abs Auto 0.04 X10*3/uL (0.00-0.03); Imm Gran Pct Auto 0.5 % (0.0-0.4); Lymphocytes Absolute Auto 2.3 X10*3/uL (1.2-4.9); Lymphocytes Percent Auto 26.9 % (20-40); Mean Corpuscular HGB Conc 32.7 g/dl (31.0-35.0); Mean Corpuscular Hemoglobin 30.1 pg (27.0-33.0); Mean Corpuscular Volume 91.9 fL (80.0-98.0); Mean Platelet Volume 11.1 fL (9.4-12.3); Monocytes Absolute Auto 0.6 X10*3/uL (0.1-1.2); Monocytes Percent Auto 6.4 % (2-11); Neutrophils Absolute Auto 5.6 x10*3/uL (2.0-8.3); Neutrophils Percent Auto 64.8 % (45-73); Platelet Count 291 X10*3/uL (160-400); Red Blood Count 4.79 X10*6/uL (4.20-5.50); Red Cell Distribution Width 14.5 % (11.0-16.0); White Blood Count 8.6 X10*3/uL (4.8-10.8)
[2023-10-06 16:32] LABS: Alanine Aminotransferase 16 U/L (0-31); Alkaline Phosphatase 88 U/L (39-117); Anion Gap 10 (12-20); Aspartate Amino Transferase 19 U/L (5-31); Bilirubin Total 0.4 mg/dL (0.0-1.0); Blood Urea Nitrogen 7 mg/dL (9-16); Calcium 9.8 mg/dL (8.4-10.2); Carbon Dioxide 27 mmol/L (22-29); Chloride 109 mmol/L (96-108); Estimated Glomerular Filt Rate > 60; Glucose Random 96 mg/dL (60-115); Potassium 4.1 mmol/L (3.3-5.1); Sodium 142 mmol/L (135-145); Total Protein 6.9 g/dL (6.5-8.0)
[2023-10-06 16:59] LABS: Vitamin B12 575 pg/mL (200-900)
[2023-10-07 13:04] LABS: LDL Cholesterol Direct 165 mg/dL (<100)
[2023-10-09 19:09] LABS: Zinc 53 mcg/dL (60-130)
[2023-10-10 18:35] LABS: Vitamin D 25-OH, D2 <4 ng/mL; Vitamin D 25-OH, D3 28 ng/mL; Vitamin D 25-OH, Total 28 ng/mL (30-100)
== END 2023-10-06 14:28 | disposition home or self-care (01) ==
LOC: HO.HMGCLDS 14:27
PROVIDERS: PCP Internal Medicine; Visit Provider Internal Medicine
DX: J44.9 Chronic obstructive pulmonary disease, unspecified (principal); I10 Essential (primary) hypertension; K21.9 Gastro-esophageal reflux disease without esophagitis; F33.41 Major depressive disorder, recurrent, in partial remission; F41.9 Anxiety disorder, unspecified
CPT/HCPCS: 36415; 80053; 82306; 82607; 83721; 84630; 85025

== ENCOUNTER 2023-10-13 15:01 | Outpatient (REF) | payer MEDICARE, SELFPAY ==
--- NOTE | ~2023-10-13 | US_ITS ---
EXAMINATION: US RETROPERITONEAL LIMITED (RENAL ONLY) CLINICAL INFORMATION: Nocturia. COMPARISON: None available. TECHNIQUE: Real-time imaging of the kidneys. FINDINGS: RIGHT KIDNEY: 11.5 x 5.2 x 6.8 cm (SAG x AP x TRV). The kidney is normal in size, contour, and echogenicity. Renal cortical thickness is normal. No calculi or focal parenchymal lesions. No hydronephrosis. LEFT KIDNEY: 10.6 x 5.3 x 5.6 cm (SAG x AP x TRV). The kidney is normal in size, contour, and echogenicity. Renal cortical thickness is normal. There is an upper pole 5 mm echogenic focus present with twinkle artifact adjacent to the cyst consistent with a nonobstructing stone. No hydronephrosis. A benign upper pole 1.4 cm Bosniak class I renal cyst is noted which requires no additional imaging or follow up. No solid renal masses are seen. US/US renal BI IMPRESSION: Nonobstructing left renal calculus.
== END 2023-10-13 15:02 | disposition home or self-care (01) ==
LOC: HO.HMGCX 15:01
PROVIDERS: PCP Internal Medicine; Visit Provider Urology
DX: R32 Unspecified urinary incontinence (principal); R35.1 Nocturia
CPT/HCPCS: 76775

== ENCOUNTER 2023-10-28 10:39 | Outpatient (AMB) | payer MEDICARE, SELFPAY ==
--- NOTE | 2023-10-28 11:39 | AM.OFFWIN_ITS ---
Intake Vital Signs 10/28/23 11:44 Height 5 ft 5 in Weight 165 lb BMI 27.5 BP 138/100 H Blood Pressure Location Lt brachial Position Sitting Pulse 89 Pulse Source Pulse Oximeter Temp 97.8 F Temp Source Oral Pulse Oximetry (%) 93 Oxygen Delivery Method Room Air Intake Visit Reasons: EST/chest congestion([phone]) Intake Note: Pt is here today c/o chest congestion x12wks: Pt states didn't take b/p med this morning Patient Tobacco Use Status: Former Tobacco user Allergies Sulfa (Sulfonamide Antibiotics) Allergy (Mild, Verified 10/28/23 11:40) HIVES inositol niacinate [Niacin No Flush] Allergy (Unknown, Verified 10/28/23 11:40) N/V niacin [Niacin No Flush] Allergy (Unknown, Verified 10/28/23 11:40) N/V Do you need a note to return to daycare/school/sports/work: No HPI HPI Comments History of Present Illness Details This is a 68-year-old female with a past medical history of hypertension, anxiety, depression and COPD not currently oxygen dependent presenting for evaluation of sneezing, sinus congestion, wheezing and cough that she has had since October 22, 2023. Patient states that she was seen by her primary care provider approximately 2 and half weeks ago and was prescribed a Z- Reese as well as cough syrup for very similar symptoms. At this time the patient denies having any fevers, chills, ear pain, chest pain or shortness of breath. [facility] Medical History Cough Personal history of nicotine dependence [id number] condition Hypertension, essential Insomnia Restless leg syndrome Difficulty sleeping Anxiety Osteopenia (~2009) Hyperlipidemia Surgical History History of cholecystectomy (~03/2022) History of colonoscopy History of esophagogastroduodenoscopy (EGD) History of endometrial ablation Family History Father Diabetes Liver cancer Mother HTN (hypertension) Other Mental health disorder Substance use disorder Social History Housing: House Alcohol intake: never Patient Tobacco Use Status: Former Tobacco user Tobacco use type: Cigarette Years Smoked: (onset 20yo, 1/2ppd x 46yrs, 23pyh) e-Cigarette/Vaping Use: Never Used Second Hand Smoke Exposure: Yes service: No Current occupational status: employed Cognitive needs: No Hearing needs: No Vision needs: Yes Female Reproductive History Menstrual Age of Menarche: 11 Review of Systems Const All systems reviewed & are unremarkable except as noted in HPI and below Eyes Reports no additional complaints ENT Reports no additional complaints Card Reports no additional complaints Resp Reports no additional complaints Musc Reports no additional complaints Skin/Breast Reports system reviewed and no additional complaints, except as documented Physical Exam Vital Signs: Last Vital Signs Temp 97.8 F 10/28/23 11:44 Pulse 89 10/28/23 11:44 BP 138/100 H 10/28/23 11:44 Pulse Ox 93 10/28/23 11:44 Oxygen Delivery Method Room Air 10/28/23 11:44 BMI result Body Mass Index 27.5 Pt is afebrile; forgot to take antihypertensive medications this morning. Const General: cooperative, healthy appearing, comfortable, no acute distress, awake and Physically active; No ill appearing or lethargic Nutritional Appearance: average body habitus Orientation/consciousness: patient oriented x3 and No lethargic Limitations: no limitations HEENT Head: Yes normal to inspection Ears: hearing grossly normal bilaterally, right TM abnormal (bulging without erythema), TM normal on the left and EAC's normal General nose exam: Normal external nose present Face and sinus: Yes normal facial exam and No sinus tenderness Mouth: Normal oral and palatal mucosa present and moist mucous membranes Teeth and gingiva: dentition normal Throat: Yes posterior oropharynx normal (There is no edema, erythema or exudates of the posterior oropharynx) and No postnasal drainage Eyes Conjunctivae: other (Conjunctiva injected bilaterally, no exudate) Sclerae: sclerae normal Corneas: corneas normal Pupils: Equal, round and reactive pupils present EOM: EOMs intact bilaterally Neck Lymphatic: no lymphadenopathy noted Resp Effort & Inspection: normal respiratory effort, able to speak in complete sentences, no audible wheezes, Actively coughing, no respiratory distress and not tachypneic Auscultation: wheezes lower bilaterally and diminished lung sounds Cardio Rate: regular rate Rhythm: regular rhythm Skin General skin exam: no rashes or lesions noted Neuro General: patient oriented x3 Cranial nerves: Yes Equal, round and reactive pupils present Psych Appearance: grossly normal Mental Status: mental status grossly normal Insight: Good insight present (Psych) Judgement: Good judgement present (Psych) Assessment & Plan Assessment & Plan (1) URI (upper respiratory infection): Code(s): J06.9 - Acute upper respiratory infection, unspecified Plan: SARS panel is ordered and pending; guaifenesin cough syrup will be called into her pharmacy. Patient encouraged to increase clear fluids daily and sleep as tolerated. Work note is provided through November 01, 2023. Orders: Orders SARS-CoV2/FLU/RSV Today J06.9 - Acute upper respiratory infection, unspecified Medications: New guaifenesin 400 mg (10 mL) PO Q6H 473 mL 0RF codeine-guaifenesin 10-100 mg/5 mL 5 mL PO Q6H PRN 118 mL 0RF cough Coding Level of Care Code Est Pt Level 3 (14493) Diagnoses URI (upper respiratory infection) J06.9 Time Spent (min) 25
[2023-10-28 11:44] VITALS: BP 138/100; PULSE 89; TEMP 36.6; O2SAT 93; BMI 27.5
== END 2023-10-28 12:22 | disposition home or self-care (01) ==
PROVIDERS: PCP Internal Medicine; Visit Provider Physician Assistant
DX: J06.9 Acute upper respiratory infection, unspecified (principal)
CPT/HCPCS: 99213

== ENCOUNTER 2023-10-28 12:24 | Outpatient (REF) | payer MEDICARE, SELFPAY ==
[2023-10-28 14:24] LABS: Influenza A PCR NEGATIVE (Negative); Influenza B PCR NEGATIVE (Negative); Resp Syncy Virus RNA Qual PCR POSITIVE (Negative); SARS COV2 PCR INHOUSE NEGATIVE (Negative)
== END 2023-10-28 12:25 | disposition home or self-care (01) ==
LOC: HO.LAB 12:24
PROVIDERS: Visit Provider Physician Assistant
DX: J06.9 Acute upper respiratory infection, unspecified (principal); Z11.52 Encounter for screening for COVID-19; Z20.828 Contact with and (suspected) exposure to other viral communicable diseases
CPT/HCPCS: 0241U

== ENCOUNTER 2023-11-07 13:58 | Outpatient (AMB) | payer MEDICARE, SELFPAY ==
--- NOTE | 2023-11-07 14:07 | MHC.OFFVIS ---
Intake Vital Signs 11/07/23 14:08 Height 5 ft 5 in Weight 165 lb 5.547 oz BMI 27.5 BP 118/80 Blood Pressure Location Lt brachial Position Sitting Intake Visit Reasons: 6 mnth follow up Intake Note: Mariposa presents in the office as a 6 months follow up of IBS. CC: Patient reports she was doing great but in July she got Covid and after that she had diarrhea on and off for 2 weeks. She did good after that but states she just went over RSV recently and is now having diarrhea. Clip On Sunglasses Assembler Required: No Accompanied by: Self / Same As Patient Allergies Sulfa (Sulfonamide Antibiotics) Allergy (Mild, Verified 11/07/23 14:14) HIVES inositol niacinate [Niacin No Flush] Allergy (Unknown, Verified 11/07/23 14:14) N/V niacin [Niacin No Flush] Allergy (Unknown, Verified 11/07/23 14:14) N/V HPI 6 mnth follow up HPI Details Assessment & Plan (1) Post-cholecystectomy syndrome: Code(s): K91.5 - Postcholecystectomy syndrome Plan: She is doing much better since the addition of the carafate. She is only taking 1 a day, but this is preventing her from having accidents and to run to the BR all of the time, I feel human again. She continues on her pantoprazole bid with good control of her N/V and GERD. Again, she uses mostly good RX and not her insurance for meds. ROV 6 mos. (2) GERD (gastroesophageal reflux disease): Code(s): K21.9 - Gastro-esophageal reflux disease without esophagitis (3) Irritable bowel syndrome with both constipation and diarrhea: Code(s): K58.2 - Mixed irritable bowel syndrome CORRESPONDENCE On 09/04/23 @ 12:59 Carlee Goodwin Wrote To Carlee Goodwin (2) The problem is that she missed her 6 mos appt in July, and does not seem to be booked for a follow up. This ALWAYS needs to be checked before sending any rx renewal, kareem with 6 refills! This is usually the only way to keep them compliant with their follow ups. Please call the patient and get her in........ On 09/04/23 @ 11:16 Carleen Cabrera Wrote To Buddy patient on Pantoprazole. I will re-send script. Medication Orders pantoprazole 40 mg PO BID 60 ta bs 6RF Changed pantoprazole 40 mg PO BID 60 ta bs 6RF Refilled Carleen Cabrera removed from item. On 09/04/23 @ 11:05 Kari Infante Wrote To Buddy (2) pt called and stated she [place] her omeprazole over seas and is asking if you can give her another scrpt? TODAY'S VISIT She is just getting over RSV and she had COVID in July for the 4th time, and she also had acute bronchitis in the interim. She can not get in to see her PCP, Dr. Murrieta, and she went to our walk in clinic but had to wait in my car for 2 hours they are so busy. She is slowly recovering, but still has a hacking cough and was just given an RX for codeine. She had one episode of diarrhea, she is unsure if this was because of all the different medications or even eating too much chocolate ice cream last night. She is unsure when her last colonoscopy was, may have been 2008. She never had polyps and no FHX CRC. She was not using any cholestyramine or carafate as she had not had diarrhea since July. Still, since she had one episode will send a renewal for carafate just in case. She continues on pantoprazole bid. We discuss Cologuard, Will order. Return office visit in 8 weeks to evaluate her Cologuard results. [facility] Medical History Cough Personal history of nicotine dependence [id number] condition Hypertension, essential Insomnia Restless leg syndrome Difficulty sleeping Anxiety Osteopenia (~2009) Hyperlipidemia Surgical History History of cholecystectomy (~03/2022) History of colonoscopy History of esophagogastroduodenoscopy (EGD) History of endometrial ablation Family History Father Diabetes Liver cancer Mother HTN (hypertension) Other Mental health disorder Substance use disorder Social History Housing: House Alcohol intake: never Patient Tobacco Use Status: Former Tobacco user Tobacco use type: Cigarette Years Smoked: (onset 20yo, 1/2ppd x 46yrs, 23pyh) e-Cigarette/Vaping Use: Never Used Second Hand Smoke Exposure: Yes service: No Current occupational status: employed Cognitive needs: No Hearing needs: No Vision needs: Yes Female Reproductive History Menstrual Age of Menarche: 11 Review of Systems Const Reports daytime sleepiness, Reports fatigue, Denies fever(s), Reports malaise, Denies night sweats, Denies poor appetite and Denies weight loss Eyes Details: GLASSES Reports requires corrective lenses ENT Reports Normal hearing present, Denies dental pain, Denies dysphagia, Denies hearing loss, Denies mouth pain, Reports nasal discharge, Denies odynophagia, Reports post nasal drip, Denies throat swelling, Denies tongue swelling and Reports other (Dentition adequate) Card Reports no additional complaints Resp Reports cough GI Denies abdominal pain, Denies melena, Denies bloating, Denies hematochezia, Denies constipation, Denies GI cramping, Denies dysphagia, Denies excessive flatus, Denies early satiety, Reports heartburn, Reports diarrhea, Denies nausea, Denies odynophagia, Denies vomiting and Denies hematemesis Skin/Breast Denies pruritus, Denies lesions, Denies rash and Denies jaundice Neuro Reports Normal hearing present and Denies Abnormal speech present Endo Reports fatigue Aller/Immun Denies throat swelling and Denies tongue swelling Physical Exam Vital Signs: Last Vital Signs BP 118/80 11/07/23 14:08 BMI result Body Mass Index 27.5 Const General: cooperative, no acute distress, well developed and well groomed Nutritional Appearance: well nourished and overweight Orientation/consciousness: oriented to person, oriented to place and oriented to time Limitations: No language barrier HEENT Head: Yes normocephalic and Yes atraumatic Eyes General: appearance normal, both eyes and all related structures Pupils: Equal, round and reactive pupils present Neck Neck: Yes normal visual inspection and Yes no lymphadenopathy Thyroid: Thyroid normal Resp Effort & Inspection: normal respiratory effort and able to speak in complete sentences Auscultation: clear to auscultation bilaterally Cardio Rate: regular rate Rhythm: regular rhythm Heart sounds: Normal, physiologic split S2 sound present Peripheral pulses: radial pulses present and posterior tibial pulses present GI Inspection: No distended, No Abdominal panniculus present and Yes obesity Palpation (GI): Soft to palpation, nontender, no guarding, not rigid and No hepatosplenomegaly present Percussion: Yes normal to percussion Auscultation: normal bowel sounds Rectal Exam - Female: deferred Skin General skin exam: no rashes or lesions noted, turgor normal, skin not dry, no jaundice, No spider nevi and no striae Rashes: no rashes Nails: normal Neuro General: oriented to person, oriented to place and oriented to time Cranial nerves: Yes Equal, round and reactive pupils present and Yes Normal hearing present Speech: No Abnormal speech present Extrem General: Yes normal to inspection, No clubbing, No cyanosis and No edema Psych Appearance: grossly normal and well kempt Mental Status: mental status grossly normal Speech and movement: Normal speech and movement present Affect: normal affect Attitude: cooperative Thought process: Normal thought process present and not confabulating Thought content: Normal thought content present Insight: Fair insight present (Psych) Judgement: Fair judgement present (Psych) Assessment & Plan Assessment & Plan (1) Post-cholecystectomy syndrome: Code(s): K91.5 - Postcholecystectomy syndrome (2) GERD (gastroesophageal reflux disease): Code(s): K21.9 - Gastro-esophageal reflux disease without esophagitis Qualifiers: Esophagitis presence: without esophagitis Qualified Code(s): K21.9 - Gastro-esophageal reflux disease without esophagitis Plan She is just getting over RSV and she had COVID in July for the 4th time, and she also had acute bronchitis in the interim. She can not get in to see her PCP, Dr. Murrieta, and she went to our walk in clinic but had to wait in my car for 2 hours they are so busy. She is slowly recovering, but still has a hacking cough and was just given an RX for codeine. She had one episode of diarrhea, she is unsure if this was because of all the different medications or even eating too much chocolate ice cream last night. She is unsure when her last colonoscopy was, may have been 2008. She never had polyps and no FHX CRC. She was not using any cholestyramine or carafate as she had not had diarrhea since July. Still, since she had one episode will send a renewal for carafate just in case. She continues on pantoprazole bid. We discuss Cologuard, Will order. Return office visit in 8 weeks to evaluate her Cologuard results. Medications: New sucralfate (Carafate) 2 grams (2 x 1 gram) PO DAILY 60 tabs 3RF K91.5 - Postcholecystectomy syndrome Coding Level of Care Code Est Pt Level 3 (97646) Diagnoses Post-cholecystectomy syndrome K91.5 Gastroesophageal reflux disease without esophagitis K21.9 Esophagitis presence: without esophagitis
[2023-11-07 14:08] VITALS: BP 118/80; BMI 27.5
== END 2023-11-07 14:53 | disposition home or self-care (01) ==
PROVIDERS: PCP Internal Medicine; Visit Provider Nurse Practitioner
DX: K91.5 Postcholecystectomy syndrome (principal); K21.9 Gastro-esophageal reflux disease without esophagitis
CPT/HCPCS: 99213

== ENCOUNTER → 2023-11-07 13:58 | Outpatient (BNVA) | payer MEDICARE, SELFPAY | PROVIDERS: PCP Internal Medicine; Visit Provider Nurse Practitioner | DX: K91.5 Postcholecystectomy syndrome (principal); K21.9 Gastro-esophageal reflux disease without esophagitis | CPT/HCPCS: 99212 ==

== ENCOUNTER 2023-11-29 08:21 | Outpatient (AMB) | payer MEDICARE, SELFPAY ==
[2023-11-29 08:28] VITALS: BP 134/76; PULSE 98; O2SAT 99; BMI 27.5
--- NOTE | 2023-11-29 08:28 | MHC.PC.OV ---
Vital Signs 11/29/23 08:28 Height 5 ft 5 in Weight 165 lb 6 oz BMI 27.5 BP 134/76 Blood Pressure Location Rt brachial Position Sitting Pulse 98 Pulse Source Pulse Oximeter Pulse Oximetry (%) 99 Oxygen Delivery Method Room Air Intake Visit Reasons: follow up from walk in/ [facility] Allergies Sulfa (Sulfonamide Antibiotics) Allergy (Mild, Verified 11/29/23 08:30) HIVES inositol niacinate [Niacin No Flush] Allergy (Unknown, Verified 11/29/23 08:30) N/V niacin [Niacin No Flush] Allergy (Unknown, Verified 11/29/23 08:30) N/V Medication List - Last Reconciled 11/29/23 by Pepe Murrieta MD atenolol 25 mg PO DAILY 90 days escitalopram oxalate 10 mg PO DAILY losartan 50 mg PO BID 90 days pantoprazole 40 mg PO BID sucralfate (Carafate) 2 grams (2 x 1 gram) PO DAILY valacyclovir 500 mg PO DAILY PRN Tobacco use date assessed: 11/29/23 Fall risk assessment: No Falls in past year Last assessed Fall Risk: 11/29/23 Dental Screening Dental Screen Date: 11/29/23 Did you have a dental visit in the last 12 months?: Yes Did you have a dental problem in the last 6 months where you did not have access to dental care?: No Was dental information given to patient?: Patient has dentist HPI follow up from walk in/ [facility] HPI Details Patient is 68-year-old female with a history of depression, anxiety, COPD, nicotine dependence, hypertension Came in to have paperwork filled, patient has been sick since early September She was treated with antibiotic early September, she came back again on 28 of October 2 walk-in clinic and found to have tested positive for RSV Patient is still coughing feeling fatigued and getting short of breath off and on She has cut down on smoking but still smoking She would like to have [facility] paperwork filled starting from October 16 until 28 of December Paperwork was filled, I am sending few tablets of prednisone 10 mg patient may take that if needed. She is taking [id number] cough medicine she may continue that. Today on examination her lungs are clear PFSH Medical History Cough Personal history of nicotine dependence [id number] condition Hypertension, essential Insomnia Restless leg syndrome Difficulty sleeping Anxiety Osteopenia (~2009) Hyperlipidemia Surgical History History of cholecystectomy (~03/2022) History of colonoscopy History of esophagogastroduodenoscopy (EGD) History of endometrial ablation Family History Father Diabetes Liver cancer Mother HTN (hypertension) Other Mental health disorder Substance use disorder Social History Housing: House Alcohol intake: never Patient Tobacco Use Status: Former Tobacco user Tobacco use type: Cigarette Years Smoked: (onset 20yo, 1/2ppd x 46yrs, 23pyh) e-Cigarette/Vaping Use: Never Used Second Hand Smoke Exposure: Yes service: No Current occupational status: employed Cognitive needs: No Hearing needs: No Vision needs: Yes Female Reproductive History Menstrual Age of Menarche: 11 Questionnaire PHQ-9 Over the last 2 weeks, how often have you been bothered by any of the following problems? 1. Little interest or pleasure in doing things: not at all 2. Feeling down, depressed, or hopeless: not at all 3. Trouble falling or staying asleep, or sleeping too much: not at all 4. Feeling tired or having little energy: not at all 5. Poor appetite or overeating: not at all 6. Feeling bad about yourself - or that you are a failure or have let yourself or your family down: not at all 7. Trouble concentrating on things, such as reading the newspaper or watching television: not at all 8. Moving or speaking so slowly that other people could have noticed. Or the opposite - being so fidgety or restless that you have been moving around a lot more than usual: not at all 9. Thoughts that you would be better off or of hurting yourself in some way: not at all Total score: 0 Depression Screening Interpretation: Negative Depression Screening Done: Yes 30313 - PHQ-9 Billing: Yes Source: Developed by Drs. Vinnie Draper, Casie Ribeiro, Rainer Goodman and colleagues, with an educational ella from [employer]. Thrive Questionnaire Date Thrive assessed: 11/29/23 I am a: Patient What is your living situation today?: I have a steady place to live Within the past 12 months, did the food you bought not last and you didn't have the money to get more?: Never true Within the past 12 months, did you worry whether your food would run out before you got money to buy more?: Never true Do you have trouble paying for medicines?: No Do you have trouble getting transportation to medical appointments?: No Do you have trouble paying your heating and electricity bill?: No Do you have trouble taking care of your child, family member or friend?: No Do you have trouble with day-to-day activities such as bathing, preparing meals, shopping, managing finances, etc.?: No Are you currently unemployed and looking for a job?: No Are you interested in more education?: No Please select the resources that you would like help with: None Currently or been in a relationship where the following occur: no concerns reported THRIVE Score: 0 AUDIT C Alcohol Use Questionnaire (AUDIT-C) 1. How often do you have a drink containing alcohol?: Never 3. How often do you have six or more drinks on one occasion?: Never Total Score: 0 Score Reviewed/Action Taken: Yes KELLY-7 AMB Questionnaire KELLY-7 Date KELLY - 7 assessed: 11/29/23 Feeling nervous, anxious, or on edge: 0 = Not at all Not being able to stop or control worryin = Not at all Worrying too much about different things: 0 = Not at all Trouble relaxin = Not at all Being so restless that it is hard to sit still: 0 = Not at all Becoming easily annoyed or irritable: 0 = Not at all Feeling afraid as if something awful might happen: 0 = Not at all Total KELLY-7 score (0-4 normal; 5-9 mild; 10-14 moderate; 15-21 severe): 0 Source: Developed by Drs. Vinnie Draper, Casie Ribeiro, Rainer Goodman and colleagues, with an educational ella from [employer]. KELLY-7 Assessment Billing KELLY-7 Assessment Tool: KELLY-7 Assessment 82085 Review of Systems Const Denies chills and Denies fever(s) ENT Denies epistaxis and Denies nasal discharge Card Denies chest pain Resp Denies hemoptysis GI Denies diarrhea and Denies nausea Skin/Breast Denies rash Neuro Reports no additional complaints Psych Reports no additional complaints Endo Reports no additional complaints Physical exam (Primary Care) Vital Signs: Last Vital Signs Pulse 98 11/29/23 08:28 BP 134/76 11/29/23 08:28 Pulse Ox 99 11/29/23 08:28 Oxygen Delivery Method Room Air 11/29/23 08:28 BMI result Body Mass Index 27.5 Tobacco/Smoking Status: Tobacco use Status Tobacco use date assessed 11/29/23 11/29/23 08:34 Patient Tobacco Use Status Former Tobacco user 11/29/23 08:30 Tobacco use type Cigarette 11/29/23 08:30 e-Cigarette/Vaping Use Never Used 11/29/23 08:30 PHQ-9: PHQ-9 Score PHQ-9: Total score 0 11/29/23 08:52 Depression Screening Interpretation: Negative Thrive Assessment: Date of Thrive Assessment Date Thrive assessed 11/29/23 11/29/23 08:52 Currently or been in a relationship where the following occur: no concerns reported Const General: no acute distress HENMT Ears: mastoids normal General nose exam: Normal external nose present Throat: Yes posterior oropharynx abnormal Neck Neck: Yes no lymphadenopathy Resp Effort & Inspection: normal respiratory effort Auscultation: clear to auscultation bilaterally Psych Mental Status: mental status grossly normal Assessment and Plan Assessment & Plan (1) RSV bronchitis: Code(s): J20.5 - Acute bronchitis due to respiratory syncytial virus (2) COPD (chronic obstructive pulmonary disease): Code(s): J44.9 - Chronic obstructive pulmonary disease, unspecified Qualifiers: COPD type: unspecified COPD Qualified Code(s): J44.9 - Chronic obstructive pulmonary disease, unspecified (3) Nicotine dependence, cigarettes, uncomplicated: Code(s): F17.210 - Nicotine dependence, cigarettes, uncomplicated (4) Major depression, recurrent: Code(s): F33.9 - Major depressive disorder, recurrent, unspecified Qualifiers: Active/Remission status: in full remission Qualified Code(s): F33.42 - Major depressive disorder, recurrent, in full remission Plan Patient is 68-year-old female with a history of depression, anxiety, COPD, nicotine dependence, hypertension Came in to have paperwork filled, patient has been sick since early September She was treated with antibiotic early September, she came back again on 28 of October 2 walk-in clinic and found to have tested positive for RSV Patient is still coughing feeling fatigued and getting short of breath off and on She has cut down on smoking but still smoking She would like to have FMLA paperwork filled starting from October 16 until 28 of December Paperwork was filled, I am sending few tablets of prednisone 10 mg patient may take that if needed. She is taking [id number] cough medicine she may continue that. Today on examination her lungs are clear Coding Level of Care Code Est Pt Level 4 (46206) Diagnoses RSV bronchitis J20.5 Chronic obstructive pulmonary disease, unspecified COPD type J44.9 COPD type: unspecified COPD Nicotine dependence, cigarettes, uncomplicated F17.210 Recurrent major depressive disorder, in full remission F33.42 Active/Remission status: in full remission Additional Codes KELLY-7 Assessment Billing - KELLY-7 Assessment Tool: KELLY-7 Assessment 28230 ([id number])
== END 2023-11-29 09:19 | disposition home or self-care (01) ==
PROVIDERS: PCP Internal Medicine; Visit Provider Internal Medicine
DX: J20.5 Acute bronchitis due to respiratory syncytial virus (principal); J44.9 Chronic obstructive pulmonary disease, unspecified; F33.42 Major depressive disorder, recurrent, in full remission; F17.210 Nicotine dependence, cigarettes, uncomplicated
CPT/HCPCS: 99214

== ENCOUNTER 2024-01-02 14:09 | Outpatient (AMB) | payer MEDICARE, SELFPAY ==
[2024-01-02 14:16] VITALS: BP 168/100; BMI 27.7
--- NOTE | 2024-01-02 14:16 | A.OFFVIS_ITS ---
Intake Vital Signs 01/02/24 14:16 Height 5 ft 5 in Weight 166 lb 3.657 oz BMI 27.7 BP 168/100 H Blood Pressure Location Lt brachial Position Sitting Intake Visit Reasons: 8 week follow up Intake Note: Patient presents to in office visit today in follow up of IBS. CC: Patient states she had RSV recently and had diarrhea for 7 days in a row towards the end of November. Patient states she is feeling well right know for the most part. Household Coordinator Required: No Accompanied by: Self / Same As Patient Allergies Sulfa (Sulfonamide Antibiotics) Allergy (Mild, Verified 01/02/24 14:23) HIVES inositol niacinate [Niacin No Flush] Allergy (Unknown, Verified 01/02/24 14:23) N/V niacin [Niacin No Flush] Allergy (Unknown, Verified 01/02/24 14:23) N/V HPI 8 week follow up HPI Details Assessment & Plan (1) Post-cholecystectomy syndrome: Code(s): K91.5 - Postcholecystectomy syndrome (2) GERD (gastroesophageal reflux diseas e): Code(s): K21.9 - Gastro-esophageal reflux disease without esophagitis Qualifiers: Esophagitis presence: without esophagitis Qualified Code(s): K21.9 - Gastro-esophageal reflux disease without esophagitis Plan She is just getting over RSV and she had COVID in July for the 4th time, and she also had acute bronchitis in the interim. She can not get in to see her PCP, Dr. Murrieta, and she went to our walk in clinic but had to wait in my car for 2 hours they are so busy. She is slowly recovering, but still has a hacking cough and was just given an RX for codeine. She had one episode of diarrhea, she is unsure if this was because of all the different medications or even eating too much chocolate ice cream last night. She is unsure when her last colonoscopy was, may have been 2008. She never had polyps and no FHX CRC. She was not using any cholestyramine or carafate as she had not had diarrhea since July. Still, since she had one episode will send a renewal for carafate just in case. She continues on pantoprazole bid. We discuss Cologuard, Will order. Return office visit in 8 weeks to evaluate her Cologuard results. Medications: New sucralfate (Carafa te) 2 grams (2 x 1 gra m) PO DAILY 60 tab s 3RF K91.5 - Postcholec ystectomy syndrome TODAY'S VISIT She never picked up the carafate because she came down with RSV snd then a Norovirus. Her stooling consistency is in consistent, but she has not had o utright diarrhea anymore. The only time she had diarrhea was with the GI virus. She still struggles with GERD but the pantoprazole is working well for her when she needs it. She tries not to take it every day. She never received the Cologurad I will re order this. ROV 8 weeks. [facility] Medical History (Updated 01/02/24 @ 14:24 by TRE Novoa) Major depression, recurrent RSV bronchitis Tired Acute bronchitis Renal cyst, left URI (upper respiratory infection) COPD (chronic obstructive pulmonary disease) Nicotine dependence, cigarettes, uncomplicated Bladder disorder Cough Dysuria [id number] condition Nausea and vomiting Hiatal hernia Gallstones Shortness of breath Menopause Tobacco abuse Difficulty sleeping Personal history of nicotine dependence Hypertension, essential Insomnia Restless leg syndrome Difficulty sleeping Anxiety Osteopenia (~2009) Hyperlipidemia Surgical History History of cholecystectomy (~03/2022) History of colonoscopy History of esophagogastroduodenoscopy (EGD) History of endometrial ablation Family History Father Diabetes Liver cancer Mother HTN (hypertension) Other Mental health disorder Substance use disorder Social History Housing: House Alcohol intake: never Patient Tobacco Use Status: Former Tobacco user Tobacco use type: Cigarette Years Smoked: (onset 20yo, 1/2ppd x 46yrs, 23pyh) e-Cigarette/Vaping Use: Never Used Second Hand Smoke Exposure: Yes service: No Current occupational status: employed Cognitive needs: No Hearing needs: No Vision needs: Yes Female Reproductive History Menstrual Age of Menarche: 11 Review of Systems Const Denies fatigue, Denies fever(s), Denies night sweats, Denies poor appetite and Denies weight loss Eyes Details: glasses Reports requires corrective lenses ENT Reports Normal hearing present, Denies dental pain, Denies dysphagia, Denies hearing loss, Denies mouth pain, Denies odynophagia, Denies throat swelling, Denies tongue swelling and Reports other (Dentition adequate) Card Reports no additional complaints Resp Reports no additional complaints GI Details: Denies abdominal pain, Denies melena, Denies bloating, Denies hematochezia, Reports constipation, Denies GI cramping, Denies dysphagia, Denies excessive flatus, Denies early satiety, Reports heartburn, Denies diarrhea, Reports loose stools, Denies nausea, Denies odynophagia, Denies vomiting and Denies hematemesis Skin/Breast Denies pruritus, Denies lesions, Denies rash and Denies jaundice Neuro Reports Normal hearing present and Denies Abnormal speech present Endo Denies fatigue Aller/Immun Denies throat swelling and Denies tongue swelling Physical Exam Vital Signs: Last Vital Signs BP 168/100 H 01/02/24 14:16 BMI result Body Mass Index 27.7 Const General: cooperative, no acute distress, well developed and well groomed Nutritional Appearance: average body habitus and well nourished Orientation/consciousness: oriented to person, oriented to place and oriented to time Limitations: No language barrier HEENT Head: Yes normocephalic and Yes atraumatic Eyes General: appearance normal, both eyes and all related structures Pupils: Equal, round and reactive pupils present Neck Neck: Yes normal visual inspection and Yes no lymphadenopathy Thyroid: Thyroid normal Resp Effort & Inspection: normal respiratory effort and able to speak in complete sentences Auscultation: clear to auscultation bilaterally Cardio Rate: regular rate Rhythm: regular rhythm Heart sounds: Normal, physiologic split S2 sound present Peripheral pulses: radial pulses present and posterior tibial pulses present GI Inspection: No distended and No Abdominal panniculus present Palpation (GI): Soft to palpation, nontender, no guarding, not rigid and No hepatosplenomegaly present Percussion: Yes normal to percussion Auscultation: normal bowel sounds Rectal Exam - Female: deferred Skin General skin exam: no rashes or lesions noted, turgor normal, skin not dry, no jaundice, No spider nevi and no striae Rashes: no rashes Nails: normal Neuro General: oriented to person, oriented to place and oriented to time Cranial nerves: Yes Equal, round and reactive pupils present and Yes Normal hearing present Speech: No Abnormal speech present Extrem General: Yes normal to inspection, No clubbing, No cyanosis and No edema Psych Appearance: grossly normal and well kempt Mental Status: mental status grossly normal Speech and movement: Normal speech and movement present Affect: normal affect Attitude: cooperative Thought process: Normal thought process present and not confabulating Thought content: Normal thought content present Insight: Fair insight present (Psych) Judgement: Fair judgement present (Psych) Assessment & Plan Assessment & Plan (1) Post-cholecystectomy syndrome: Code(s): K91.5 - Postcholecystectomy syndrome (2) GERD (gastroesophageal reflux disease): Code(s): K21.9 - Gastro-esophageal reflux disease without esophagitis Qualifiers: Esophagitis presence: without esophagitis Qualified Code(s): K21.9 - Gastro-esophageal reflux disease without esophagitis (3) Irritable bowel syndrome with both constipation and diarrhea: Code(s): K58.2 - Mixed irritable bowel syndrome Plan She never picked up the carafate because she came down with RSV snd then a Norovirus. Her stooling consistency is in consistent, but she has not had outright diarrhea anymore. The only time she had diarrhea was with the GI virus. She still struggles with GERD but the pantoprazole is working well for her when she needs it. She tries not to take it every day. She never received the Cologurad I will re order this. ROV 8 weeks. Medications: Refilled pantoprazole 40 mg PO BID 60 tabs 6RF K21.9 - Gastro-esophageal reflux disease without esophagitis On Hold sucralfate (Carafate) Hold Comment: Doctor's Order 2 grams (2 x 1 gram) PO DAILY 60 tabs 3RF K91.5 - Postcholecystectomy syndrome Coding Level of Care Code Est Pt Level 3 (63775) Diagnoses Post-cholecystectomy syndrome K91.5 Gastroesophageal reflux disease without esophagitis K21.9 Esophagitis presence: without esophagitis Irritable bowel syndrome with both constipation and diarrhea K58.2
== END 2024-01-02 15:07 | disposition home or self-care (01) ==
PROVIDERS: PCP Internal Medicine; Visit Provider Nurse Practitioner
DX: K91.5 Postcholecystectomy syndrome (principal); K21.9 Gastro-esophageal reflux disease without esophagitis; K58.2 Mixed irritable bowel syndrome
CPT/HCPCS: 99213

== ENCOUNTER → 2024-01-02 14:09 | Outpatient (BNVA) | payer MEDICARE, SELFPAY | PROVIDERS: PCP Internal Medicine; Visit Provider Nurse Practitioner | DX: K91.5 Postcholecystectomy syndrome (principal); K21.9 Gastro-esophageal reflux disease without esophagitis; K58.2 Mixed irritable bowel syndrome | CPT/HCPCS: 99212 ==

== ENCOUNTER 2024-05-29 12:56 | Outpatient (AMB) | payer MEDICARE, SELFPAY ==
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
[2024-05-29 13:09] VITALS: BP 124/86; PULSE 64; O2SAT 94; BMI 27.1
== END 2024-05-29 13:48 | disposition home or self-care (01) ==
PROVIDERS: PCP Internal Medicine; Visit Provider Internal Medicine
DX: K59.1 Functional diarrhea (principal); F33.41 Major depressive disorder, recurrent, in partial remission; J41.0 Simple chronic bronchitis; K58.2 Mixed irritable bowel syndrome; I10 Essential (primary) hypertension; F17.210 Nicotine dependence, cigarettes, uncomplicated; K21.9 Gastro-esophageal reflux disease without esophagitis; F41.9 Anxiety disorder, unspecified; M85.80 Other specified disorders of bone density and structure, unspecified site; E78.00 Pure hypercholesterolemia, unspecified
CPT/HCPCS: 99214; G2211

== ENCOUNTER 2024-05-29 13:50 | Outpatient (REF) | payer MEDICARE, SELFPAY ==
[2024-05-29 16:14] LABS: MANUAL DIFF FLAG NO
[2024-05-29 16:32] LABS: Basophils Percent Auto 0.3 % (0-2); Eosinophils Absolute Auto 0.1 X10*3/uL (0.0-0.4); Eosinophils Percent Auto 1.3 % (0-4); Hematocrit 37.8 % (37.0-47.0); Hemoglobin 12.7 g/dl (12.0-16.0); Imm Gran Abs Auto 0.04 X10*3/uL (0.00-0.03); Imm Gran Pct Auto 0.5 % (0.0-0.4); Lymphocytes Absolute Auto 2.8 X10*3/uL (1.2-4.9); Lymphocytes Percent Auto 31.7 % (20-40); Mean Corpuscular HGB Conc 33.6 g/dl (31.0-35.0); Mean Corpuscular Hemoglobin 31.3 pg (27.0-33.0); Mean Corpuscular Volume 93.1 fL (80.0-98.0); Mean Platelet Volume 11.3 fL (9.4-12.3); Monocytes Absolute Auto 0.7 X10*3/uL (0.1-1.2); Monocytes Percent Auto 7.7 % (2-11); Neutrophils Absolute Auto 5.1 x10*3/uL (2.0-8.3); Neutrophils Percent Auto 58.5 % (45-73); Platelet Count 327 X10*3/uL (160-400); Red Blood Count 4.06 X10*6/uL (4.20-5.50); Red Cell Distribution Width 13.8 % (11.0-16.0); White Blood Count 8.7 X10*3/uL (4.8-10.8)
[2024-05-29 17:02] LABS: Alanine Aminotransferase 10 U/L (0-31); Albumin Level 3.7 g/dL (3.5-5.0); Alkaline Phosphatase 73 U/L (39-117); Anion Gap 10 (12-20); Aspartate Amino Transferase 13 U/L (5-31); Bilirubin Total 0.3 mg/dL (0.0-1.0); Blood Urea Nitrogen 9 mg/dL (9-16); Calcium 9.6 mg/dL (8.4-10.2); Carbon Dioxide 27 mmol/L (22-29); Chloride 109 mmol/L (96-108); Estimated Glomerular Filt Rate > 60; Glucose Random 88 mg/dL (60-115); Potassium 3.6 mmol/L (3.3-5.1); Sodium 142 mmol/L (135-145); Total Protein 6.1 g/dL (6.5-8.0)
[2024-05-29 17:11] LABS: TSH reflex Free T4 1.67 uIU/mL (0.32-4.0)
[2024-05-30 13:58] LABS: LDL Cholesterol Direct 140 mg/dL (<100)
[2024-06-02 16:33] LABS: Vitamin D 25-OH, D2 <4 ng/mL; Vitamin D 25-OH, D3 25 ng/mL; Vitamin D 25-OH, Total 25 ng/mL (30-100)
== END 2024-05-29 13:51 | disposition home or self-care (01) ==
LOC: HO.HMGCLDS 13:50
PROVIDERS: PCP Internal Medicine; Visit Provider Internal Medicine
DX: I10 Essential (primary) hypertension (principal); F17.210 Nicotine dependence, cigarettes, uncomplicated; K21.9 Gastro-esophageal reflux disease without esophagitis; K58.2 Mixed irritable bowel syndrome; F33.41 Major depressive disorder, recurrent, in partial remission; F41.9 Anxiety disorder, unspecified; M85.80 Other specified disorders of bone density and structure, unspecified site; R19.7 Diarrhea, unspecified
CPT/HCPCS: 36415; 80053; 82306; 83721; 84443; 85025

== ENCOUNTER 2024-06-07 14:06 | Outpatient (REF) | payer MEDICARE, SELFPAY ==
--- NOTE | ~2024-06-07 | CT_ITS ---
EXAMINATION: CT LOW-DOSE SCREENING CHEST WITHOUT CONTRAST CLINICAL INFORMATION: Nicotine dependence, cigarettes, uncomplicated. The patient is a current smoker with a 36 pack-year history of smoking. COMPARISON: CT chest July 22, 2022 and x-ray chest August 05, 2021. TECHNIQUE: Multidetector volumetric CT imaging of the chest is performed on a Siemens SOMATOM Definition scanner without contrast using low dose technique. Additional 2D coronal and sagittal reformatted images and axial 3D maximum intensity projection (MIP) images are generated on the CT workstation. This CT examination was performed using dose optimization techniques as appropriate, variously including the following: *Automated exposure control. *Adjustment of mA and/or kV according to patient size (this includes techniques or standardized protocols for targeted exams where dose is matched to indication/reason for exam; i.e. extremities or head). *Use of iterative reconstruction technique. TOTAL EXAM DLP: 40 mGy-cm. CTDIvol: 1.31 mGy. FINDINGS: PULMONARY NODULES: No suspicious pulmonary nodules. LUNGS: Lungs bilaterally symmetrically expanded. Some lingular and right middle lobe atelectasis is seen. Some mild ground-glass change is seen dependently, right greater than left (for example, 5:230, 272 and 8:60). No effusion or pneumothorax. Central airways patent. MEDIASTINUM: No mediastinal, hilar or axillary adenopathy or free fluid collection. CORONARY ARTERY CALCIFICATION: Moderate. THYROID GLAND: Unremarkable to the extent seen. CARDIOVASCULAR STRUCTURES: Aortic and heart size normal. Trace pericardial fluid has increased in size slightly since prior study. CHEST WALL/AXILLA: Unremarkable. UPPER ABDOMEN: There is hepatic steatosis, similar to prior. OSSEOUS STRUCTURES: No suspicious focal findings. CT/CT lung screening IMPRESSION: No suspicious pulmonary nodules are seen. ASSESSMENT: 1. Lung-RADS Category 1: Negative. There are no nodules or there are definitely benign nodules. N/A. 2. Lung-RADS Category S: Negative. There are no clinically significant or potentially clinically significant findings not related to the lungs requiring urgent additional evaluation. RECOMMENDATION: Continued routine annual low-dose CT lung screening in 1 year is recommended. An order for CT CHEST LOW DOSE CANCER SCREENING ([id number]) can be placed. Electronically signed by: Lencho Esquivel MD 07/16/2024 08:20 PM EDT
== END 2024-06-07 14:07 | disposition home or self-care (01) ==
LOC: HO.CT 14:06
PROVIDERS: PCP Internal Medicine; Visit Provider Physician Assistant Medical
DX: Z12.2 Encounter for screening for malignant neoplasm of respiratory organs (principal); F17.210 Nicotine dependence, cigarettes, uncomplicated
CPT/HCPCS: 71271

== ENCOUNTER 2024-06-14 08:30 | Outpatient (REF) | payer MEDICARE, SELFPAY ==
[2024-06-14 11:03] LABS: FIT1 NEGATIVE (NEGATIVE); FIT2 NEGATIVE (NEGATIVE)
[2024-06-14 11:04] LABS: FIT Int Ctl YES
== END 2024-06-14 08:31 | disposition home or self-care (01) ==
LOC: HO.HMGCLNP 08:30
PROVIDERS: PCP Internal Medicine; Visit Provider Internal Medicine
DX: I10 Essential (primary) hypertension (principal); F17.210 Nicotine dependence, cigarettes, uncomplicated; K21.9 Gastro-esophageal reflux disease without esophagitis; K58.2 Mixed irritable bowel syndrome; F33.41 Major depressive disorder, recurrent, in partial remission; F41.9 Anxiety disorder, unspecified; M85.80 Other specified disorders of bone density and structure, unspecified site; R19.7 Diarrhea, unspecified
CPT/HCPCS: 82274; 87209

== ENCOUNTER 2024-06-17 08:00 | Outpatient (REF) | payer MEDICARE, SELFPAY ==
[2024-06-17 15:33] LABS: Leukocytes Stool Qualitative NEGATIVE (NEGATIVE)
== END 2024-06-17 08:01 | disposition home or self-care (01) ==
LOC: HO.HMGCLNP 08:00
PROVIDERS: PCP Internal Medicine; Visit Provider Internal Medicine
DX: I10 Essential (primary) hypertension (principal); F17.210 Nicotine dependence, cigarettes, uncomplicated; K21.9 Gastro-esophageal reflux disease without esophagitis; K58.2 Mixed irritable bowel syndrome; F33.41 Major depressive disorder, recurrent, in partial remission; F41.9 Anxiety disorder, unspecified; M85.80 Other specified disorders of bone density and structure, unspecified site; R19.7 Diarrhea, unspecified
CPT/HCPCS: 89055

== ENCOUNTER 2024-06-21 07:35 | Outpatient (AMB) | payer MEDICARE, SELFPAY ==
--- NOTE | 2024-06-21 07:33 | A.OFFPC_ITS ---
Intake Visit Reasons: 3 week fu Allergies Sulfa (Sulfonamide Antibiotics) Allergy (Mild, Verified 06/21/24 07:36) HIVES inositol niacinate [Niacin No Flush] Allergy (Unknown, Verified 06/21/24 07:36) N/V niacin [Niacin No Flush] Allergy (Unknown, Verified 06/21/24 07:36) N/V Medication List - Last Reconciled 06/21/24 by Pepe Murrieta MD alprazolam 0.5 mg PO DAILY PRN atenolol 25 mg PO DAILY 90 days dicyclomine 20 mg PO QID 10 days escitalopram oxalate 10 mg PO DAILY losartan 50 mg PO BID 90 days pantoprazole 40 mg PO BID sucralfate (Carafate) 2 grams (2 x 1 gram) PO DAILY valacyclovir 500 mg PO DAILY PRN Tobacco use date assessed: 06/21/24 Fall risk assessment: 2 + Falls in past year Last assessed Fall Risk: 06/21/24 Dental Screening Dental Screen Date: 06/21/24 Did you have a dental visit in the last 12 months?: Yes Did you have a dental problem in the last 6 months where you did not have access to dental care?: No Was dental information given to patient?: Patient has dentist HPI 3 week fu HPI Details Patient is 68-year-old female this is a telemedicine conference Patient was complaining of severe diarrhea, she has a history of IBS She modified her diet but diarrhea was not getting better I added dicyclomine she is taking it every 6 hour and is doing much better now Refill sent Stool studies came back negative Anxiety is stable, patient tells me that she has hardly taken only 2 tablets of Xanax She continued to take escitalopram 10 mg and is doing well with that. [facility] [place] Medical History Hypertension, essential Hyperlipidemia COPD (chronic obstructive pulmonary disease) Nicotine dependence, cigarettes, uncomplicated Cough [id number] condition Osteopenia (~2009) Bladder disorder Dysuria Hiatal hernia Gallstones Post-cholecystectomy syndrome Nausea and vomiting Major depression, recurrent Anxiety Insomnia Restless leg syndrome Renal cyst, left Shortness of breath Menopause Surgical History History of cholecystectomy (~03/2022) History of colonoscopy History of esophagogastroduodenoscopy (EGD) History of endometrial ablation Family History Father Diabetes Liver cancer Mother HTN (hypertension) Other Mental health disorder Substance use disorder Social History Housing: House Alcohol intake: never Patient Tobacco Use Status: Current everyday Tobacco user Tobacco use type: Cigarette Years Smoked: (onset 20yo, 1/2ppd x 46yrs, 23pyh) e-Cigarette/Vaping Use: Never Used Second Hand Smoke Exposure: Yes service: No Current occupational status: employed Cognitive needs: No Hearing needs: No Vision needs: Yes Female Reproductive History Menstrual Age of Menarche: 11 Questionnaire Thrive Questionnaire Date Thrive assessed: 05/29/24 AUDIT C Alcohol Use Questionnaire (AUDIT-C) 1. How often do you have a drink containing alcohol?: Never 3. How often do you have six or more drinks on one occasion?: Never Total Score: 0 Score Reviewed/Action Taken: Yes KELLY-7 AMB Questionnaire KELLY-7 Date KELLY - 7 assessed: 05/29/24 Source: Developed by Drs. Vinnie Draper, Casie Ribeiro, Rainer Goodman and colleagues, with an educational ella from [employer]. Review of Systems Const Denies chills and Denies fever(s) ENT Denies epistaxis and Denies nasal discharge Card Denies chest pain Resp Denies chest congestion, Denies cough and Denies hemoptysis GI Denies nausea Skin/Breast Denies rash Neuro Reports no additional complaints Psych Reports no additional complaints Endo Reports no additional complaints Physical exam (Primary Care) Tobacco/Smoking Status: Tobacco use Status Tobacco use date assessed 06/21/24 06/21/24 07:35 Patient Tobacco Use Status Current everyday Tobacco 06/21/24 07:35 Tobacco use type Cigarette 06/21/24 07:35 e-Cigarette/Vaping Use Never Used 06/21/24 07:35 Thrive Assessment: Date of Thrive Assessment Date Thrive assessed 05/29/24 06/21/24 07:35 Telehealth Telehealth Telehealth Platform: [facility] [place] Location of provider rendering services: practice address Location of patient: address on file Patient Identification confirmed using: Name, : Yes Telehealth method: video (Attempted) Patient verbally consented to treatment: Yes Patient verbally consented to billing insurance company: Yes Patient informed of any privacy concerns related to visit: Yes Minutes spent on Phone/Video with Pt.: 13 Assessment and Plan Assessment & Plan (1) Irritable bowel syndrome with both constipation and diarrhea: Code(s): K58.2 - Mixed irritable bowel syndrome (2) Anxiety: Code(s): F41.9 - Anxiety disorder, unspecified Plan Patient is 68-year-old female this is a telemedicine conference Patient was complaining of severe diarrhea, she has a history of IBS She modified her diet but diarrhea was not getting better I added dicyclomine she is taking it every 6 hour and is doing much better now Refill sent Stool studies came back negative Anxiety is stable, patient tells me that she has hardly taken only 2 tablets of Xanax She continued to take escitalopram 10 mg and is doing well with that. Medications: Changed From dicyclomine 20 mg PO QID 10 days 40 tabs 0RF To dicyclomine 20 mg PO QID 360 tabs 0RF IBS 90 days NS Coding Level of Care Code Tele Est Pt Level 3 (16503) Diagnoses Irritable bowel syndrome with both constipation and diarrhea K58.2 Anxiety F41.9
== END 2024-06-21 08:48 | disposition home or self-care (01) ==
LOC: HO.HMGC 07:35
PROVIDERS: PCP Internal Medicine; Visit Provider Internal Medicine
DX: K58.2 Mixed irritable bowel syndrome (principal); F41.9 Anxiety disorder, unspecified
CPT/HCPCS: 99213

== ENCOUNTER 2024-07-20 12:09 | Outpatient (AMB) | payer MEDICARE, SELFPAY ==
[2024-07-20 12:30] VITALS: BP 130/82; PULSE 72; TEMP 36.7; O2SAT 93
--- NOTE | 2024-07-20 12:30 | MHC.OFFWIV ---
Intake Vital Signs 07/20/24 12:30 Height 5 ft 5 in BP 130/82 Blood Pressure Location Rt brachial Position Sitting Pulse 72 Pulse Source Pulse Oximeter Temp 98.1 F Temp Source Oral Pulse Oximetry (%) 93 Oxygen Delivery Method Room Air Intake Visit Reasons: EP chest infection/?Bronchitis Intake Note: pt is here for possible bronchitis Patient Tobacco Use Status: Current everyday Tobacco user Allergies Sulfa (Sulfonamide Antibiotics) Allergy (Mild, Verified 07/20/24 12:35) HIVES inositol niacinate [Niacin No Flush] Allergy (Unknown, Verified 07/20/24 12:35) N/V niacin [Niacin No Flush] Allergy (Unknown, Verified 07/20/24 12:35) N/V Do you need a note to return to daycare/school/sports/work: Yes HPI HPI Comments History of Present Illness Details She presents to office with cold x 4 days Main symptoms cough, no phlegm, fatigue, body aches No fever No medicine for symptoms She said doxy in past made very sick Denies sick contacts States negative covid this am PFSH Medical History Hypertension, essential Hyperlipidemia COPD (chronic obstructive pulmonary disease) Nicotine dependence, cigarettes, uncomplicated Cough [id number] condition Osteopenia (~2009) Bladder disorder Dysuria Hiatal hernia Gallstones Post-cholecystectomy syndrome Nausea and vomiting Major depression, recurrent Anxiety Insomnia Restless leg syndrome Renal cyst, left Shortness of breath Menopause Surgical History History of cholecystectomy (~03/2022) History of colonoscopy History of esophagogastroduodenoscopy (EGD) History of endometrial ablation Family History Father Diabetes Liver cancer Mother HTN (hypertension) Other Mental health disorder Substance use disorder Social History Housing: House Alcohol intake: never Patient Tobacco Use Status: Current everyday Tobacco user Tobacco use type: Cigarette Years Smoked: (onset 20yo, 1/2ppd x 46yrs, 23pyh) e-Cigarette/Vaping Use: Never Used Second Hand Smoke Exposure: Yes service: No Current occupational status: employed Cognitive needs: No Hearing needs: No Vision needs: Yes Female Reproductive History Menstrual Age of Menarche: 11 Review of Systems Const Denies chills and Denies fever(s) Eyes Denies change in vision ENT Reports nasal congestion and Denies sore throat Card Denies chest pain Resp Reports change in phlegm color (green), Reports chest congestion and Reports cough Musc Reports myalgias Physical Exam Vital Signs: Last Vital Signs Temp 98.1 F 07/20/24 12:30 Pulse 72 07/20/24 12:30 BP 130/82 07/20/24 12:30 Pulse Ox 93 07/20/24 12:30 Oxygen Delivery Method Room Air 07/20/24 12:30 General: Non-toxic, NAD. Speaking full sentences. Skin: Warm dry throughout Eye: EOMI HENT: Airway patent. Uvula midline. No pharyngeal erythema or edema. No FURNITURE SERVICER. Bilateral canals clear. TM non-erythematous, non-bulging. No TM perforation or hemotympanum noted. Respiratory: Faint crackle L base but otherwise CTA . No wheezes or rhonchi Cardiac: RRR. No murmur MSK: Full ROM extremities. Neurology: A/O No aphasia or facial droop. Gait without abnormality Psych: Good mood and affect Assessment & Plan Assessment & Plan (1) Acute bronchitis: Code(s): J20.9 - Acute bronchitis, unspecified Qualifiers: Bronchitis organism: other organism Qualified Code(s): J20.8 - Acute bronchitis due to other specified organisms Plan: Patient seen and evaluated. Will cover with augmentin and Tessalon No azithromycin due to med interaction with at home F/U with PCP Patient gave verbal understanding and had no additional questions or concerns at time of discharge All questions answered Medications: New benzonatate 100 mg PO BID-TID PRN 14 caps 0RF cough amoxicillin-pot clavulanate 875-125 mg 1 tab PO BID 14 tabs 0RF Coding Level of Care Code Est Pt Level 3 (65142) Diagnoses Acute bronchitis due to other specified organisms J20.8 Bronchitis organism: other organism
== END 2024-07-20 13:33 | disposition home or self-care (01) ==
PROVIDERS: PCP Internal Medicine; Visit Provider Physician Assistant
DX: J20.8 Acute bronchitis due to other specified organisms (principal)

== ENCOUNTER → 2024-07-20 12:09 | Outpatient (BNVA) | payer MEDICARE, SELFPAY | PROVIDERS: PCP Internal Medicine | DX: J20.8 Acute bronchitis due to other specified organisms (principal) | CPT/HCPCS: 99212 ==

== ENCOUNTER 2024-07-29 09:18 | Outpatient (AMB) | payer MEDICARE, SELFPAY ==
[2024-07-29 11:11] VITALS: BP 142/80; PULSE 72; TEMP 36.7; O2SAT 95; BMI 27.1
--- NOTE | 2024-07-29 11:11 | AM.OFFWIN_ITS ---
Intake Vital Signs 07/29/24 11:11 Height 5 ft 5 in Weight 163 lb BMI 27.1 BP 142/80 H Blood Pressure Location Lt brachial Position Sitting Pulse 72 Pulse Source Pulse Oximeter Temp 98.1 F Temp Source Oral Pulse Oximetry (%) 95 Intake Visit Reasons: EP still has chest congestion was here last Sat. Intake Note: pt is here for chest congestion, was here last monday without any relief Patient Tobacco Use Status: Current everyday Tobacco user Allergies Sulfa (Sulfonamide Antibiotics) Allergy (Mild, Verified 07/29/24 11:12) HIVES inositol niacinate [Niacin No Flush] Allergy (Unknown, Verified 07/29/24 11:12) N/V niacin [Niacin No Flush] Allergy (Unknown, Verified 07/29/24 11:12) N/V Do you need a note to return to daycare/school/sports/work: No HPI HPI Comments History of Present Illness Details Patient is a 68-year-old female complaining of a cough and continued chest congestion. She came in to this clinic on July 20 and was diagnosed with bronchitis, given Augmentin and Tessalon Perles which she has taken the antibiotic in full with no relief. She denies any fevers, headaches, sinus pain, ear pain but feels a little bit short of breath. Patient states the cough is interrupting her sleep and the Tessalon Perles did not help stop her cough at night. [facility] Medical History Hypertension, essential Hyperlipidemia COPD (chronic obstructive pulmonary disease) Nicotine dependence, cigarettes, uncomplicated Cough [id number] condition Osteopenia (~2009) Bladder disorder Dysuria Hiatal hernia Gallstones Post-cholecystectomy syndrome Nausea and vomiting Major depression, recurrent Anxiety Insomnia Restless leg syndrome Renal cyst, left Shortness of breath Menopause Surgical History History of cholecystectomy (~03/2022) History of colonoscopy History of esophagogastroduodenoscopy (EGD) History of endometrial ablation Family History Father Diabetes Liver cancer Mother HTN (hypertension) Other Mental health disorder Substance use disorder Social History Housing: House Alcohol intake: never Patient Tobacco Use Status: Current everyday Tobacco user Tobacco use type: Cigarette Years Smoked: (onset 20yo, 1/2ppd x 46yrs, 23pyh) e-Cigarette/Vaping Use: Never Used Second Hand Smoke Exposure: Yes service: No Current occupational status: employed Cognitive needs: No Hearing needs: No Vision needs: Yes Female Reproductive History Menstrual Age of Menarche: 11 Review of Systems Const All systems reviewed & are unremarkable except as noted in HPI and below Physical Exam Vital Signs: Last Vital Signs Temp 98.1 F 07/29/24 11:11 Pulse 72 07/29/24 11:11 BP 142/80 H 07/29/24 11:11 Pulse Ox 95 07/29/24 11:11 BMI result Body Mass Index 27.1 Const General: cooperative, healthy appearing, comfortable and no acute distress Orientation/consciousness: patient oriented x3 Limitations: no limitations HEENT Head: Yes normal to inspection Ears: hearing grossly normal bilaterally, external ears normal and TM's normal bilaterally General nose exam: Normal external nose present, Normal nares present and No nasal discharge present Face and sinus: Yes normal facial exam and Yes sinuses nontender Mouth: Normal oral and palatal mucosa present and moist mucous membranes Throat: Yes tonsils normal, Yes uvula midline and Yes posterior oropharynx abnormal (Erythema) Eyes General: appearance normal, both eyes and all related structures Neck Neck: Yes normal visual inspection Resp Effort & Inspection: normal respiratory effort, able to speak in complete sentences, Actively coughing, no respiratory distress, not tachypneic, no tripod positioning and no use of accessory muscles Auscultation: clear to auscultation bilaterally Cardio Rate: regular rate Rhythm: regular rhythm Heart sounds: normal S1 and S2 Skin General skin exam: no rashes or lesions noted Neuro General: patient oriented x3 Extrem General: Yes normal to inspection and Yes no clubbing, cyanosis or edema Assessment & Plan Assessment & Plan (1) URI (upper respiratory infection): Code(s): J06.9 - Acute upper respiratory infection, unspecified Qualifiers: URI type: unspecified URI Qualified Code(s): J06.9 - Acute upper respiratory infection, unspecified Plan: Vital signs are stable and patient is well-appearing however cough has been lingering for 10 days now, she does have a questionable history of emphysema so we will get a chest x-ray. We will also send cough syrup to her pharmacy so she can get some sleep at night. Plan See above Orders: Orders XR chest 2V Today R05.9 - Cough, unspecified Medications: New codeine-guaifenesin 10-100 mg/5 mL 10 mL PO Q4-6H PRN 120 mL 0RF cough Coding Level of Care Code Est Pt Level 4 (00473) Diagnoses Upper respiratory tract infection, unspecified type J06.9 URI type: unspecified URI
== END 2024-07-29 12:29 | disposition home or self-care (01) ==
PROVIDERS: PCP Internal Medicine; Visit Provider Physician Assistant
DX: J06.9 Acute upper respiratory infection, unspecified (principal)

== ENCOUNTER → 2024-07-29 09:18 | Outpatient (BNVA) | payer MEDICARE, SELFPAY | PROVIDERS: PCP Internal Medicine ==

== ENCOUNTER 2024-07-29 11:42 | Outpatient (REF) | payer MEDICARE, SELFPAY ==
--- NOTE | ~2024-07-29 | XR_ITS ---
EXAMINATION: XR CHEST CLINICAL INFORMATION: Cough COMPARISON: CT lung screening in 06/17/2024 and chest radiograph 09/01/2021 TECHNIQUE: 2 views of the chest were obtained. FINDINGS: Right mid lung and bibasilar atelectasis is seen. No infiltrates, effusions or lung masses. Heart size normal. No evidence of CHF. XR/XR chest 2V IMPRESSION: Bibasilar atelectasis. No acute intrathoracic disease. Electronically signed by: Lenhco Esquivel MD 07/29/2024 12:38 PM EDT
== END 2024-07-29 11:43 | disposition home or self-care (01) ==
LOC: HO.HMGCX 11:42
PROVIDERS: PCP Internal Medicine; Visit Provider Physician Assistant
DX: R05.9 Cough, unspecified (principal); J06.9 Acute upper respiratory infection, unspecified
CPT/HCPCS: 71046; 99212

== ENCOUNTER 2024-10-04 07:58 | Outpatient (REF) | payer MEDICARE, SELFPAY ==
[2024-10-04 10:10] LABS: MANUAL DIFF FLAG NO
[2024-10-04 10:12] LABS: Basophils Percent Auto 0.4 % (0-2); Eosinophils Absolute Auto 0.1 X10*3/uL (0.0-0.4); Eosinophils Percent Auto 1.9 % (0-4); Hemoglobin 14.3 g/dl (12.0-16.0); Imm Gran Abs Auto 0.04 X10*3/uL (0.00-0.03); Imm Gran Pct Auto 0.6 % (0.0-0.4); Lymphocytes Absolute Auto 2.1 X10*3/uL (1.2-4.9); Lymphocytes Percent Auto 30.5 % (20-40); Mean Corpuscular Volume 91.1 fL (80.0-98.0); Mean Platelet Volume 10.9 fL (9.4-12.3); Monocytes Absolute Auto 0.6 X10*3/uL (0.1-1.2); Monocytes Percent Auto 9.1 % (2-11); Neutrophils Absolute Auto 3.9 x10*3/uL (2.0-8.3); Neutrophils Percent Auto 57.5 % (45-73); Platelet Count 284 X10*3/uL (160-400); Red Blood Count 4.61 X10*6/uL (4.20-5.50); White Blood Count 6.7 X10*3/uL (4.8-10.8)
[2024-10-04 11:00] LABS: Alanine Aminotransferase 17 U/L (0-31); Albumin Level 3.9 g/dL (3.5-5.0); Alkaline Phosphatase 89 U/L (39-117); Anion Gap 12 (12-20); Aspartate Amino Transferase 28 U/L (5-31); Bilirubin Total 0.5 mg/dL (0.0-1.0); Blood Urea Nitrogen 7 mg/dL (9-16); Calcium 9.8 mg/dL (8.4-10.2); Carbon Dioxide 27 mmol/L (22-29); Chloride 107 mmol/L (96-108); Estimated Glomerular Filt Rate > 60; Glucose Random 100 mg/dL (60-115); Potassium 3.8 mmol/L (3.3-5.1); Sodium 142 mmol/L (135-145); Total Protein 6.5 g/dL (6.5-8.0)
[2024-10-05 18:14] LABS: LDL Cholesterol Direct 183 mg/dL (<100)
[2024-10-09 14:22] LABS: Vitamin D 25-OH, D2 <4 ng/mL; Vitamin D 25-OH, D3 19 ng/mL; Vitamin D 25-OH, Total 19 ng/mL (30-100)
== END 2024-10-04 07:59 | disposition home or self-care (01) ==
LOC: HO.HMGCLDS 07:58
PROVIDERS: PCP Internal Medicine; Visit Provider Internal Medicine
DX: E78.00 Pure hypercholesterolemia, unspecified (principal); I10 Essential (primary) hypertension; J43.8 Other emphysema; K21.9 Gastro-esophageal reflux disease without esophagitis; K58.2 Mixed irritable bowel syndrome; M85.80 Other specified disorders of bone density and structure, unspecified site
CPT/HCPCS: 36415; 80053; 82306; 83721; 85025; 99212

== ENCOUNTER 2024-10-04 07:58 | Outpatient (AMB) | payer MEDICARE, SELFPAY ==
--- NOTE | 2024-10-04 08:02 | MHC.PC.OV ---
Vital Signs 10/04/24 08:03 Height 5 ft 5 in Weight 165 lb BMI 27.5 BP 138/70 Blood Pressure Location Lt brachial Position Sitting Pulse 55 Pulse Source Pulse Oximeter Pulse Oximetry (%) 97 Oxygen Delivery Method Room Air Intake Visit Reasons: 4 month fu Allergies Sulfa (Sulfonamide Antibiotics) Allergy (Mild, Verified 10/04/24 08:04) HIVES inositol niacinate [Niacin No Flush] Allergy (Unknown, Verified 10/04/24 08:04) N/V niacin [Niacin No Flush] Allergy (Unknown, Verified 10/04/24 08:04) N/V Medication List - Last Reconciled 10/04/24 by Pepe Murrieta MD atenolol 25 mg PO DAILY 90 days dicyclomine 20 mg PO QID 90 days NS escitalopram oxalate 10 mg PO DAILY losartan 50 mg PO BID 90 days pantoprazole 40 mg PO BID sucralfate (Carafate) 2 grams (2 x 1 gram) PO DAILY valacyclovir 500 mg PO DAILY PRN Tobacco use date assessed: 10/04/24 Fall risk assessment: No Falls in past year Last assessed Fall Risk: 10/04/24 Dental Screening Dental Screen Date: 06/21/24 HPI 4 month fu HPI Details Chief Complaint The patient reports persistent malaise and issues likely related to blood pressure management and allergies. Assessment and Plan 69-year-old female with a history of Chronic Obstructive Pulmonary Disease (COPD) presenting with concerns related to blood pressure management, persistent malaise, and symptoms consistent with allergic rhinitis. The patient's hypertension appears to fluctuate significantly, with current readings showing hypotension at 100/60mmHg. There is also exacerbation of allergy symptoms which may contribute to her fatigue. Continued smoking is a notable risk for her COPD and overall respiratory health. The patient's IBS is characterized predominantly by diarrhea, responding variably to dietary changes. 1. Irritable Bowel Syndrome Ibs The patient's IBS presents primarily as diarrhea, potentially triggered by dietary factors such as coffee. The patient's management includes use of medications like dicyclomine as needed. Continued dietary monitoring and adjustment were encouraged. 2. Allergic Rhinitis Patient experiences frequent nasal drainage and sneezing. Initiation of daily loratadine (Claritin) was advised for symptom management. Discussed the role of air bulk materials handling plant operator as an adjunct but not the sole measure for allergy management. 3. Hypertension The patient's current blood pressure reading was 100/60 mmHg, which is lower than previous readings. Advised to monitor blood pressure daily at home and to withhold the evening dose of losartan if readings are around 120mmHg. Atenolol regimen is to continue as tolerated. A blood pressure log is to be maintained for review in two weeks. 4. Chronic Obstructive Pulmonary Disease Copd The patient is advised to quit smoking as it significantly impacts COPD progression. Reinforcement about the negative effects of smoking on lung health was provided. Pulmonary function testing has not been performed recently; potential re-assessment discussed. Problem List - Chronic Obstructive Pulmonary Disease (COPD) - Hypertension - Allergic Rhinitis - Irritable Bowel Syndrome (IBS0 - to be tinea with low vitamin-D, continue supplemen - labs are due today - stress incontinence stable Patient Instructions - Quit smoking to improve lung health and manage COPD. - Monitor blood pressure daily at home, keeping a log, and report the readings at the next visit. - Take losartan cautiously, assessing the need for the evening dose based on blood pressure readings. - Start taking loratadine daily for allergic rhinitis symptoms. - Continue current management for IBS and modify diet as needed. - Return for follow-up in two weeks with the blood pressure log. Follow-up 2 weeks for blood pressure log and to go over labs [facility] Medical History Hypertension, essential Hyperlipidemia COPD (chronic obstructive pulmonary disease) Nicotine dependence, cigarettes, uncomplicated Cough [id number] condition Osteopenia (~2009) Bladder disorder Dysuria Hiatal hernia Gallstones Post-cholecystectomy syndrome Nausea and vomiting Major depression, recurrent Anxiety Insomnia Restless leg syndrome Renal cyst, left Shortness of breath Menopause Surgical History History of cholecystectomy (~03/2022) History of colonoscopy History of esophagogastroduodenoscopy (EGD) History of endometrial ablation Family History Father Diabetes Liver cancer Mother HTN (hypertension) Other Mental health disorder Substance use disorder Social History Housing: House Alcohol intake: never Patient Tobacco Use Status: Current everyday Tobacco user Tobacco use type: Cigarette Years Smoked: (onset 20yo, 1/2ppd x 46yrs, 23pyh) e-Cigarette/Vaping Use: Never Used Second Hand Smoke Exposure: Yes service: No Current occupational status: employed Cognitive needs: No Hearing needs: No Vision needs: Yes Female Reproductive History Menstrual Age of Menarche: 11 Questionnaire Thrive Questionnaire Date Thrive assessed: 05/29/24 I am a: Patient What is your living situation today?: I have a steady place to live Within the past 12 months, did the food you bought not last and you didn't have the money to get more?: Never true Within the past 12 months, did you worry whether your food would run out before you got money to buy more?: Never true Do you have trouble paying for medicines?: No Do you have trouble getting transportation to medical appointments?: No Do you have trouble paying your heating and electricity bill?: No Do you have trouble taking care of your child, family member or friend?: No Do you have trouble with day-to-day activities such as bathing, preparing meals, shopping, managing finances, etc.?: No Are you currently unemployed and looking for a job?: No Are you interested in more education?: No Please select the resources that you would like help with: None THRIVE Score: 0 KELLY-7 AMB Questionnaire KELLY-7 Date KELLY - 7 assessed: 05/29/24 Source: Developed by Drs. Vinnie Draper, Casie Ribeiro, Rainer Goodman and colleagues, with an educational ella from [employer]. Review of Systems Const Denies chills and Denies fever(s) ENT Denies epistaxis and Denies nasal discharge Card Denies chest pain Resp Denies chest congestion, Denies cough and Denies hemoptysis GI Denies diarrhea and Denies nausea Skin/Breast Denies rash Neuro Reports no additional complaints Psych Reports no additional complaints Endo Reports no additional complaints Physical exam (Primary Care) BMI result Body Mass Index 27.5 Tobacco/Smoking Status: Tobacco use Status Tobacco use date assessed 06/21/24 06/21/24 07:35 Patient Tobacco Use Status Current everyday Tobacco 07/29/24 11:16 Tobacco use type Cigarette 06/21/24 07:35 e-Cigarette/Vaping Use Never Used 06/21/24 07:35 Thrive Assessment: Date of Thrive Assessment Date Thrive assessed 05/29/24 06/21/24 07:35 Const General: cooperative, comfortable and no acute distress Orientation/consciousness: patient oriented x3 HENMT Head: Yes normocephalic Eyes General: appearance normal, both eyes and all related structures Neck Neck: Yes supple Resp Effort & Inspection: normal respiratory effort, no cough and no stridor Cardio Rhythm: regular rhythm Heart sounds: S1 normal heart sound present and S2 normal heart sound present Skin General skin exam: turgor normal Neuro General: patient oriented x3, tone normal and moves all extremities Extrem Right lower extremity: no edema Left lower extremity: no edema Coding Level of Care Code Est Pt Level 4 (93198) Complex EM visit Add On G2211 Diagnoses Hypertension, essential I10 Pure hypercholesterolemia E78.00 Hyperlipidemia type: pure hypercholesterolemia Nicotine dependence, cigarettes, uncomplicated F17.210 Smokers' cough J41.0 Other emphysema J43.8 Emphysema type: other Gastroesophageal reflux disease without esophagitis K21.9 Esophagitis presence: without esophagitis Irritable bowel syndrome with both constipation and diarrhea K58.2 Depression, major, recurrent, in partial remission F33.41 Anxiety F41.9 Osteopenia, unspecified location M85.80 Osteopenia location: unspecified Stress incontinence of urine N39.3 Urinary Incontinence type: stress incontinence Assessment & Plan Assessment & Plan (1) Hypertension, essential: Code(s): I10 - Essential (primary) hypertension Category: Medical (2) Hyperlipidemia: Code(s): E78.5 - Hyperlipidemia, unspecified Category: Medical Qualifiers: Hyperlipidemia type: pure hypercholesterolemia Qualified Code(s): E78.00 - Pure hypercholesterolemia, unspecified (3) Nicotine dependence, cigarettes, uncomplicated: Comment: (current smoker, onset 20yo, 1/2ppd x 48yrs, 24pyh) Code(s): F17.210 - Nicotine dependence, cigarettes, uncomplicated Category: Medical (4) Smokers' cough: Code(s): J41.0 - Simple chronic bronchitis Category: Medical (5) Emphysema lung: Comment: Because of decreased diffusion capacity, it seems that she may have pulmonary emphysema, even though it was not reported on chest x-ray. Code(s): J43.9 - Emphysema, unspecified Category: Medical Qualifiers: Emphysema type: other Qualified Code(s): J43.8 - Other emphysema (6) GERD (gastroesophageal reflux disease): Code(s): K21.9 - Gastro-esophageal reflux disease without esophagitis Category: Medical Qualifiers: Esophagitis presence: without esophagitis Qualified Code(s): K21.9 - Gastro-esophageal reflux disease without esophagitis (7) Irritable bowel syndrome with both constipation and diarrhea: Code(s): K58.2 - Mixed irritable bowel syndrome Category: Medical (8) Depression, major, recurrent, in partial remission: Code(s): F33.41 - Major depressive disorder, recurrent, in partial remission Category: Medical (9) Anxiety: Code(s): F41.9 - Anxiety disorder, unspecified Category: Medical (10) Osteopenia: Onset Date: ~2009 Comment: (Bone Dexa Lumbar T-score -2.2 on 04/26/2010) Code(s): M85.80 - Other specified disorders of bone density and structure, unspecified site Category: Medical Qualifiers: Osteopenia location: unspecified Qualified Code(s): M85.80 - Other specified disorders of bone density and structure, unspecified site (11) Urine incontinence: Code(s): R32 - Unspecified urinary incontinence Category: Medical Qualifiers: Urinary Incontinence type: stress incontinence Qualified Code(s): N39.3 - Stress incontinence (female) (male) Plan Chief Complaint The patient reports persistent malaise and issues likely related to blood pressure management and allergies. Assessment and Plan 69-year-old female with a history of Chronic Obstructive Pulmonary Disease (COPD) presenting with concerns related to blood pressure management, persistent malaise, and symptoms consistent with allergic rhinitis. The patient's hypertension appears to fluctuate significantly, with current readings showing hypotension at 100/60mmHg. There is also exacerbation of allergy symptoms which may contribute to her fatigue. Continued smoking is a notable risk for her COPD and overall respiratory health. The patient's IBS is characterized predominantly by diarrhea, responding variably to dietary changes. 1. Irritable Bowel Syndrome Ibs The patient's IBS presents primarily as diarrhea, potentially triggered by dietary factors such as coffee. The patient's management includes use of medications like dicyclomine as needed. Continued dietary monitoring and adjustment were encouraged. 2. Allergic Rhinitis Patient experiences frequent nasal drainage and sneezing. Initiation of daily loratadine (Claritin) was advised for symptom management. Discussed the role of air bulk materials handling plant operator as an adjunct but not the sole measure for allergy management. 3. Hypertension The patient's current blood pressure reading was 100/60 mmHg, which is lower than previous readings. Advised to monitor blood pressure daily at home and to withhold the evening dose of losartan if readings are around 120mmHg. Atenolol regimen is to continue as tolerated. A blood pressure log is to be maintained for review in two weeks. 4. Chronic Obstructive Pulmonary Disease Copd The patient is advised to quit smoking as it significantly impacts COPD progression. Reinforcement about the negative effects of smoking on lung health was provided. Pulmonary function testing has not been performed recently; potential re-assessment discussed. Problem List - Chronic Obstructive Pulmonary Disease (COPD) - Hypertension - Allergic Rhinitis - Irritable Bowel Syndrome (IBS0 - to be tinea with low vitamin-D, continue supplemen - labs are due today - stress incontinence stable Patient Instructions - Quit smoking to improve lung health and manage COPD. - Monitor blood pressure daily at home, keeping a log, and report the readings at the next visit. - Take losartan cautiously, assessing the need for the evening dose based on blood pressure readings. - Start taking loratadine daily for allergic rhinitis symptoms. - Continue current management for IBS and modify diet as needed. - Return for follow-up in two weeks with the blood pressure log. Follow-up 2 weeks for blood pressure log and to go over labs Orders: Orders LDL Cholesterol Direct Today E78.00 - Pure hypercholesterolemia, unspecified, I10 - Essential (primary) hypertension, J43.8 - Other emphysema, K21.9 - Gastro-esophageal reflux disease without esophagitis, K58.2 - Mixed irritable bowel syndrome, M85.80 - Other specified disorders of bone density and structure, unspecified site Vitamin D 25-OH (D2 and D3) Today E78.00 - Pure hypercholesterolemia, unspecified, I10 - Essential (primary) hypertension, J43.8 - Other emphysema, K21.9 - Gastro-esophageal reflux disease without esophagitis, K58.2 - Mixed irritable bowel syndrome, M85.80 - Other specified disorders of bone density and structure, unspecified site Complete Blood Count Auto Diff Today E78.00 - Pure hypercholesterolemia, unspecified, I10 - Essential (primary) hypertension, J43.8 - Other emphysema, K21.9 - Gastro-esophageal reflux disease without esophagitis, K58.2 - Mixed irritable bowel syndrome, M85.80 - Other specified disorders of bone density and structure, unspecified site Comprehensive Met. Panel Today E78.00 - Pure hypercholesterolemia, unspecified, I10 - Essential (primary) hypertension, J43.8 - Other emphysema, K21.9 - Gastro-esophageal reflux disease without esophagitis, K58.2 - Mixed irritable bowel syndrome, M85.80 - Other specified disorders of bone density and structure, unspecified site
[2024-10-04 08:03] VITALS: BP 138/70; PULSE 55; O2SAT 97; BMI 27.5
== END 2024-10-04 09:31 | disposition home or self-care (01) ==
PROVIDERS: PCP Internal Medicine; Visit Provider Internal Medicine
DX: I10 Essential (primary) hypertension (principal); J41.0 Simple chronic bronchitis; J43.8 Other emphysema; F33.41 Major depressive disorder, recurrent, in partial remission; E78.00 Pure hypercholesterolemia, unspecified; F17.210 Nicotine dependence, cigarettes, uncomplicated; K21.9 Gastro-esophageal reflux disease without esophagitis; K58.2 Mixed irritable bowel syndrome; F41.9 Anxiety disorder, unspecified; M85.80 Other specified disorders of bone density and structure, unspecified site; N39.3 Stress incontinence (female) (male)

== ENCOUNTER 2024-10-11 12:16 | Outpatient (AMB) | payer MEDICARE, SELFPAY ==
[2024-10-11 12:29] VITALS: BP 144/98; PULSE 61; O2SAT 96
--- NOTE | 2024-10-11 12:29 | A.OFFPC_ITS ---
Vital Signs 10/11/24 12:29 Weight 162 lb 4 oz BP 144/98 H Blood Pressure Location Lt brachial Position Sitting Pulse 61 Pulse Source Pulse Oximeter Pulse Oximetry (%) 96 Oxygen Delivery Method Room Air Intake Visit Reasons: HDF ~ Post hospital discharge FU Allergies Sulfa (Sulfonamide Antibiotics) Allergy (Mild, Verified 10/04/24 08:04) HIVES inositol niacinate [Niacin No Flush] Allergy (Unknown, Verified 10/04/24 08:04) N/V niacin [Niacin No Flush] Allergy (Unknown, Verified 10/04/24 08:04) N/V Medication List - Last Reconciled 10/11/24 by Pepe Murrieta MD amlodipine 5 mg PO DAILY atenolol 25 mg PO DAILY 90 days atenolol 50 mg PO DAILY clonidine HCl 0.05 mg PO TID dicyclomine 20 mg PO QID 90 days NS escitalopram oxalate 10 mg PO DAILY losartan 50 mg PO BID 90 days pantoprazole 40 mg PO BID sucralfate (Carafate) 2 grams (2 x 1 gram) PO DAILY valacyclovir 500 mg PO DAILY PRN Tobacco use date assessed: 10/04/24 Dental Screening Dental Screen Date: 06/21/24 HPI HDF ~ Post hospital discharge FU HPI Details Chief Complaint The patient presents with uncontrolled hypertension. Visited [facility] this month due to uncontrolled hypertension Assessment and Plan 69-year-old female with a history of ess ential hypertension presenting for follow-up on elevated blood pressure readings. The patient has reported blood pressure readings exceeding 200 mmHg systolic on multiple occasions, resulting in a visit to the emergency department. Current medication regimen includes atenolol, amlodipine, and clonidine was added in emergency room. No evidence of stroke or myocardial infarction noted. Blood pressure readings show significant fluctuations potentially linked to stress levels. 1. Essential Hypertension The patient is experiencing marked fluctuations in blood pressure readings with episodes of severe hypertension. Current blood pressure is 144/98 mmHg at the time of the visit. The patient is to continue atenolol 50 mg daily, amlodipine 5 mg daily, and clonidine as needed with adjustments to administration timing to nighttime dosing. The patient is advised to increase monitoring frequency to a ssess the correlation between stress and blood pressure changes. Additional extra amlodipine 5 mg has been prescribed to manage sporadic spikes. Diagnostic results - Electrocardiogram (EKG) performed in [facility] emergency room showed no acute abnormalities. - Bloodwork: Unspecified results from [facility]. Problem List - labile hypertension Essential Hyperten imelda - emergency room visit follow-up Medications - Atenolol 50 mg daily for hypertension management - Amlodipine 5 mg daily for hypertension management - Clonidine as needed, 90 tablets prescr ibed for nighttime dosing to manage a cute blood pressure spikes - losartan 50 mg b.i.d. Health Maintenance - Maintain adequate hydration to prevent strong ammonia-smelling urine. - Monitor and manage stress levels to ai d blood pressure control. Patient Instructions - Monitor blood pressure multiple times daily, particularly when feeling stressed. - Take medications as prescribed, with a tenolol and amlodipine in the morning, and clonidine at night. - Maintain hydration to improve urine od or. - Seek help if experiencing symptoms of low heart rate (below 50) such as dizziness or lightheadedness. - Report any significant changes in bloo d pressure or symptoms to healthcare provider promptly. - Avoid taking clonidine more than once daily unless advised by healthcare provider. Follow-up 3 months [facility] Medical History Hypertension, essential Hyperlipidemia COPD (chronic obstructive pulmonary disease) Nicotine dependence, cigarettes, uncomplicated Cough [id number] condition Osteopenia (~2009) Bladder disorder Dysuria Hiatal hernia Gallstones Post-cholecystectomy syndrome Nausea and vomiting Major depression, recurrent Anxiety Insomnia Restless leg syndrome Renal cyst, left Shortness of breath Menopause Surgical History History of cholecystectomy (~03/2022) History of colonoscopy History of esophagogastroduodenoscopy (EGD) History of endometrial ablation Family History Father Diabetes Liver cancer Mother HTN (hypertension) Other Mental health disorder Substance use disorder Social History Housing: House Alcohol intake: never Patient Tobacco Use Status: Current everyday Tobacco user Tobacco use type: Cigarette Years Smoked: (onset 20yo, 1/2ppd x 46yrs, 23pyh) e-Cigarette/Vaping Use: Never Used Second Hand Smoke Exposure: Yes service: No Current occupational status: employed Cognitive needs: No Hearing needs: No Vision needs: Yes Female Reproductive History Menstrual Age of Menarche: 11 Questionnaire Thrive Questionnaire Date Thrive assessed: 05/29/24 I am a: Patient What is your living situation today?: I have a steady place to live Within the past 12 months, did the food you bought not last and you didn't have the money to get more?: Never true Within the past 12 months, did you worry whether your food would run out before you got money to buy more?: Never true Do you have trouble paying for medicines?: No Do you have trouble getting transportation to medical appointments?: No Do you have trouble paying your heating and electricity bill?: No Do you have trouble taking care of your child, family member or friend?: No Do you have trouble with day-to-day activities such as bathing, preparing meals, shopping, managing finances, etc.?: No Are you currently unemployed and looking for a job?: No Are you interested in more education?: No Please select the resources that you would like help with: None THRIVE Score: 0 KELLY-7 AMB Questionnaire KELLY-7 Date KELLY - 7 assessed: 05/29/24 Source: Developed by Drs. Vinnie Draper, Casie Ribeiro, Rainer Goodman and colleagues, with an educational ella from [employer]. Review of Systems Const Denies chills and Denies fever(s) ENT Denies epistaxis and Denies nasal discharge Card Denies chest pain Resp Denies chest congestion, Denies cough and Denies hemoptysis GI Denies diarrhea and Denies nausea Skin/Breast Denies rash Neuro Reports no additional complaints Psych Reports no additional complaints Endo Reports no additional complaints Physical exam (Primary Care) Vital Signs: Last Vital Signs Pulse 61 10/11/24 12:29 BP 144/98 H 10/11/24 12:29 Pulse Ox 96 10/11/24 12:29 Oxygen Delivery Method Room Air 10/11/24 12:29 Tobacco/Smoking Status: Tobacco use Status Tobacco use date assessed 10/04/24 10/11/24 12:32 Patient Tobacco Use Status Current everyday Tobacco 10/11/24 12:32 Tobacco use type Cigarette 10/11/24 12:32 e-Cigarette/Vaping Use Never Used 10/11/24 12:32 Thrive Assessment: Date of Thrive Assessment Date Thrive assessed 05/29/24 10/11/24 12:32 Const General: cooperative, comfortable and no acute distress Orientation/consciousness: patient oriented x3 HENMT Head: Yes normocephalic Eyes General: appearance normal, both eyes and all related structures Neck Neck: Yes supple Resp Effort & Inspection: normal respiratory effort, no cough and no stridor Cardio Rhythm: regular rhythm Heart sounds: S1 normal heart sound present and S2 normal heart sound present Skin General skin exam: turgor normal Neuro General: patient oriented x3, tone normal and moves all extremities Extrem Right lower extremity: no edema Left lower extremity: no edema Coding Level of Care Code Est Pt Level 4 (93180) Diagnoses Hospital discharge follow-up Z09 Uncontrolled hypertension I10 Anxiety F41.9 Assessment & Plan Assessment & Plan (1) Hospital discharge follow-up: Code(s): Z09 - Encounter for follow-up examination after completed treatment for conditions other than malignant neoplasm Category: Medical (2) Uncontrolled hypertension: Code(s): I10 - Essential (primary) hypertension Category: Medical (3) Anxiety: Code(s): F41.9 - Anxiety disorder, unspecified Category: Medical Plan Chief Complaint The patient presents with uncontrolled hypertension. Visited [facility] this month due to uncontrolled hypertension Assessment and Plan 69-year-old female with a history of essential hypertension presenting for follow-up on elevated blood pressure readings. The patient has reported blood pressure readings exceeding 200 mmHg systolic on multiple occasions, resulting in a visit to the emergency department. Current medication regimen includes atenolol, amlodipine, and clonidine was added in emergency room. No evidence of stroke or myocardial infarction noted. Blood pressure readings show significant fluctuations potentially linked to stress levels. 1. Essential Hypertension The patient is experiencing marked fluctuations in blood pressure readings with episodes of severe hypertension. Current blood pressure is 144/98 mmHg at the time of the visit. The patient is to continue atenolol 50 mg daily, amlodipine 5 mg daily, and clonidine as needed with adjustments to administration timing to nighttime dosing. The patient is advised to increase monitoring frequency to assess the correlation between stress and blood pressure changes. Additional ex tra amlodipine 5 mg has been prescribed to manage sporadic spikes. Diagnostic results - Electrocardiogram (EKG) performed in the emergency room showed no acute abnormalities. - Bloodwork: Unspecified results from [facility]. Problem List - labile hypertension Essential Hypertension - emergency room visit follow-up Medications - Atenolol 50 mg daily for hypertension management - Amlodipine 5 mg daily for hypertension management - Clonidine as needed, 90 tablets prescribed for nighttime dosing to manage acute blood pressure spikes - losartan 50 mg b.i.d. Health Maintenance - Maintain adequate hydration to prevent strong ammonia-smelling urine. - Monitor and manage stress levels to aid blood pressure control. Patient Instructions - Monitor blood pressure multiple times daily, particularly when feeling stressed. - Take medications as prescribed, with atenolol and amlodipine in the morning, and clonidine at night. - Maintain hydration to improve urine odor. - Seek help if experiencing symptoms of low heart rate (below 50) such as dizziness or lightheadedness. - Report any significant changes in blood pressure or symptoms to healthcare provider promptly. - Avoid taking clonidine more than once daily unless advised by healthcare provider. Follow-up 3 months Medications: Changed From clonidine HCl 0.05 mg PO TID To clonidine HCl 0.05 mg (1/2 x 0.1 mg) PO BEDTIME 90 tabs 0RF Discontinued atenolol Discontinued Reason: Doctor's Order 25 mg PO DAILY 90 days 90 tabs 0RF
== END 2024-10-11 12:59 | disposition home or self-care (01) ==
PROVIDERS: PCP Internal Medicine; Visit Provider Internal Medicine
DX: Z09 Encounter for follow-up examination after completed treatment for conditions other than malignant neoplasm (principal); I10 Essential (primary) hypertension; F41.9 Anxiety disorder, unspecified

== ENCOUNTER → 2024-10-11 12:16 | Outpatient (BNVA) | payer MEDICARE, SELFPAY | PROVIDERS: PCP Internal Medicine; Visit Provider Internal Medicine | DX: Z09 Encounter for follow-up examination after completed treatment for conditions other than malignant neoplasm (principal); I10 Essential (primary) hypertension; F41.9 Anxiety disorder, unspecified | CPT/HCPCS: 99212 ==

== ENCOUNTER 2025-01-29 09:38 | Outpatient (AMB) | payer MEDICARE, SELFPAY ==
--- NOTE | 2025-01-29 09:40 | A.OFFPC_ITS ---
Vital Signs 01/29/25 09:42 Height 5 ft 5 in Weight 169 lb 8 oz BMI 28.2 BP 134/74 Blood Pressure Location Rt brachial Position Sitting Pulse 59 Pulse Source Pulse Oximeter Temp 97.6 F Temp Source Oral Pulse Oximetry (%) 97 Oxygen Delivery Method Room Air Intake Visit Reasons: Hypertension Allergies Sulfa (Sulfonamide Antibiotics) Allergy (Mild, Verified 01/29/25 09:48) HIVES inositol niacinate [Niacin No Flush] Allergy (Unknown, Verified 01/29/25 09:48) N/V niacin [Niacin No Flush] Allergy (Unknown, Verified 01/29/25 09:48) N/V Medication List - Last Reconciled 01/29/25 by Pepe Murrieta MD amlodipine 5 mg PO DAILY atenolol 50 mg PO DAILY clonidine HCl 0.05 mg (1/2 x 0.1 mg) PO BEDTIME dicyclomine 20 mg PO QID 90 days NS escitalopram oxalate 10 mg PO DAILY losartan 50 mg PO BID 90 days pantoprazole 40 mg PO BID valacyclovir 500 mg PO DAILY PRN Tobacco use date assessed: 01/29/25 Fall risk assessment: No Falls in past year Last assessed Fall Risk: 01/29/25 Dental Screening Dental Screen Date: 01/29/25 Did you have a dental visit in the last 12 months?: Yes Did you have a dental problem in the last 6 months where you did not have access to dental care?: No Was dental information given to patient?: Patient has dentist HPI Hypertension HPI Details Follow-up appointment - The patient is a 69-year-old female pr esenting with congestion and chest symptoms. - She reports congestion and chest disco mfort starting approximately one week ago, attributing these symptoms partly to daily soda consumption and occasional smoking. - She has a history of smoking, currentl y estimated at six to seven cigarettes per day. - GERD is managed with pantoprazole, wit h recent exacerbations possibly due to soda intake, which she acknowledges worsening symptoms. - Her history includes hypertension cont rolled with atenolol, amlodipine, clonidine, and losartan, reporting an improved state with current treatment. - Reports hyperlipidemia with an LDL of 183 mg/dL, with efforts underway to control through dietary modifications. - Weight has increased from September, th a current weight of 169 pounds, indicating dietary factors may be contributing. - Denies significant wheezing; however, chronic bronchitis and previous COPD diagnosis indicate persistent issues related to nicotine dependence. - The patient is considering increased p hysical activity but has not yet initiated regular exercise due to prior illness. - A significant family history of alcoho l-related issues was discussed, impacting the patient's personal choices and lifestyle. - Declined further gastroenterology cons ultations and intends to manage GERD through primary care adjustments. Medications - Atenolol 50 mg for hypertension - Amlodipine 5 mg for hypertension - Clonidine for hypertension - Losartan 50 mg for hypertension - Disacromine 20 mg for IBS - Pantoprazole for GERD Diagnostic results - Labs: - CBC is within normal limits, n o anemia - Electrolytes are normal - Kidney function tests are normal - Liver enzymes are within normal limits - LDL cholesterol level is 183 mg/dL; co nsidered high - Vitamin D levels are low Patient Instructions - Reduce the consumption of soda; start by decreasing the quantity and diluting with water. - Transition to non-sugared beverages li ke iced tea without added sugar. - Increase water intake throughout the d ay. - Continue taking vitamin D supplements as prescribed. - Make dietary changes to address elevat ed cholesterol levels; follow a low- sugar diet. - Consider engaging in regular physical activities, like walking or gym exercises, after recovering from recent illness. - Monitor breathing and respiratory symp toms closely and seek medical attention if symptoms worsen. Review of Systems General: No fever no chills neurological: No headaches no dizziness ear nose throat: No sore throat no hearing difficulty no ear pain cardiovascular: No syncope, no chest pain, no palpitations gastrointestinal: No nausea vomiting or diarrhea endocrine: No polyuria polydipsia no heat intolerance genitourinary: No dysuria skin: No new complaints Physical Exam general: No acute distress HEENT: No acute findings neck: Supple respiratory system: Able to talk in full sentences, no audible wheeze, no stridor cardiovascular: S1-S2 gastrointestinal: No pain extremities: No new findings [employer]: Alert awake oriented x3 motor sensory intact skin: Normal turgor [facility] Medical History Hypertension, essential Hyperlipidemia COPD (chronic obstructive pulmonary disease) Nicotine dependence, cigarettes, uncomplicated Cough [id number] condition Osteopenia (~2009) Bladder disorder Dysuria Hiatal hernia Gallstones Post-cholecystectomy syndrome Nausea and vomiting Major depression, recurrent Anxiety Insomnia Restless leg syndrome Renal cyst, left Shortness of breath Menopause Surgical History History of cholecystectomy (~03/2022) History of colonoscopy History of esophagogastroduodenoscopy (EGD) History of endometrial ablation Family History Father Diabetes Liver cancer Mother HTN (hypertension) Other Mental health disorder Substance use disorder Social History Housing: House Alcohol intake: never Patient Tobacco Use Status: Current everyday Tobacco user Tobacco use type: Cigarette Years Smoked: (onset 20yo, 1/2ppd x 46yrs, 23pyh) e-Cigarette/Vaping Use: Never Used Second Hand Smoke Exposure: Yes service: No Current occupational status: employed Cognitive needs: No Hearing needs: No Vision needs: Yes Female Reproductive History Menstrual Age of Menarche: 11 Questionnaire PHQ-9 Over the last 2 weeks, how often have you been bothered by any of the following problems? 1. Little interest or pleasure in doing things: several days 2. Feeling down, depressed, or hopeless: not at all 3. Trouble falling or staying asleep, or sleeping too much: not at all 4. Feeling tired or having little energy: several days 5. Poor appetite or overeating: several days 6. Feeling bad about yourself - or that you are a failure or have let yourself or your family down: not at all 7. Trouble concentrating on things, such as reading the newspaper or watching television: not at all 8. Moving or speaking so slowly that other people could have noticed. Or the opposite - being so fidgety or restless that you have been moving around a lot more than usual: not at all 9. Thoughts that you would be better off or of hurting yourself in some way: not at all Total score: 3 Depression Screening Interpretation: Negative Depression Screening Done: Yes 80911 - PHQ-9 Billing: Yes Source: Developed by Drs. Vinnie Draper, Casie Ribeiro, Rainer Goodman and colleagues, with an educational ella from [employer]. Thrive Questionnaire Date Thrive assessed: 01/29/25 What is your living situation today?: I have a steady place to live Within the past 12 months, did the food you bought not last and you didn't have the money to get more?: Never true Within the past 12 months, did you worry whether your food would run out before you got money to buy more?: Never true Do you have trouble paying for medicines?: No Do you have trouble getting transportation to medical appointments?: No Do you have trouble paying your heating and electricity bill?: No Do you have trouble taking care of your child, family member or friend?: No Do you have trouble with day-to-day activities such as bathing, preparing meals, shopping, managing finances, etc.?: No Are you currently unemployed and looking for a job?: No Are you interested in more education?: No Please select the resources that you would like help with: None Currently or been in a relationship where the following occur: No concerns reported THRIVE Score: 0 AUDIT C Alcohol Use Questionnaire (AUDIT-C) 1. How often do you have a drink containing alcohol?: Never 3. How often do you have six or more drinks on one occasion?: Never Total Score: 0 Score Reviewed/Action Taken: Yes KELLY-7 AMB Questionnaire KELLY-7 Date KELLY - 7 assessed: 01/29/25 Feeling nervous, anxious, or on edge: 0 = Not at all Not being able to stop or control worryin = Not at all Worrying too much about different things: 0 = Not at all Trouble relaxin = Not at all Being so restless that it is hard to sit still: 0 = Not at all Becoming easily annoyed or irritable: 0 = Not at all Feeling afraid as if something awful might happen: 0 = Not at all Total KELLY-7 score (0-4 normal; 5-9 mild; 10-14 moderate; 15-21 severe): 0 Source: Developed by Drs. Vinnie Draper, Casie Ribeiro, Rainer Goodman and colleagues, with an educational ella from [employer]. KELLY-7 Assessment Billing KELLY-7 Assessment Tool: KELLY-7 Assessment 58053 Physical exam (Primary Care) Vital Signs: Last Vital Signs Temp 97.6 F 04/02/25 09:42 Pulse 59 01/29/25 09:42 BP 134/74 01/29/25 09:42 Pulse Ox 97 01/29/25 09:42 Oxygen Delivery Method Room Air 01/29/25 09:42 BMI result Body Mass Index 28.2 Tobacco/Smoking Status: Tobacco use Status Tobacco use date assessed 01/29/25 01/29/25 09:48 Patient Tobacco Use Status Current everyday Tobacco 01/29/25 09:41 Tobacco use type Cigarette 01/29/25 09:41 e-Cigarette/Vaping Use Never Used 01/29/25 09:41 PHQ-9: PHQ-9 Score PHQ-9: Total score 3 01/29/25 09:48 Depression Screening Interpretation: Negative Thrive Assessment: Date of Thrive Assessment Date Thrive assessed 01/29/25 01/29/25 09:48 Currently or been in a relationship where the following occur: No concerns reported Coding Level of Care Code Est Pt Level 4 (26125) Complex EM visit Add On G2211 Diagnoses Hypertension, essential I10 Pure hypercholesterolemia E78.00 Hyperlipidemia type: pure hypercholesterolemia Nicotine dependence, cigarettes, uncomplicated F17.210 Smokers' cough J41.0 Other emphysema J43.8 Emphysema type: other Gastroesophageal reflux disease without esophagitis K21.9 Esophagitis presence: without esophagitis Irritable bowel syndrome with both constipation and diarrhea K58.2 Depression, major, recurrent, in partial remission F33.41 Anxiety F41.9 Osteopenia, unspecified location M85.80 Osteopenia location: unspecified Stress incontinence of urine N39.3 Urinary Incontinence type: stress incontinence Additional Codes KELLY-7 Assessment Billing - KELLY-7 Assessment Tool: KELLY-7 Assessment 67542 ([id number]) PHQ-9 - 62390 - PHQ-9 Billing: Yes ([id number]) Assessment & Plan Assessment & Plan (1) Hypertension, essential: Code(s): I10 - Essential (primary) hypertension Category: Medical (2) Hyperlipidemia: Code(s): E78.5 - Hyperlipidemia, unspecified Category: Medical Qualifiers: Hyperlipidemia type: pure hypercholesterolemia Qualified Code(s): E78.00 - Pure hypercholesterolemia, unspecified (3) Nicotine dependence, cigarettes, uncomplicated: Comment: (current smoker, onset 20yo, 1/2ppd x 48yrs, 24pyh) Code(s): F17.210 - Nicotine dependence, cigarettes, uncomplicated Category: Medical (4) Smokers' cough: Code(s): J41.0 - Simple chronic bronchitis Category: Medical (5) Emphysema lung: Comment: Because of decreased diffusion capacity, it seems that she may have pulmonary emphysema, even though it was not reported on chest x-ray. Code(s): J43.9 - Emphysema, unspecified Category: Medical Qualifiers: Emphysema type: other Qualified Code(s): J43.8 - Other emphysema (6) GERD (gastroesophageal reflux disease): Code(s): K21.9 - Gastro-esophageal reflux disease without esophagitis Category: Medical Qualifiers: Esophagitis presence: without esophagitis Qualified Code(s): K21.9 - Gastro-esophageal reflux disease without esophagitis (7) Irritable bowel syndrome with both constipation and diarrhea: Code(s): K58.2 - Mixed irritable bowel syndrome Category: Medical (8) Depression, major, recurrent, in partial remission: Code(s): F33.41 - Major depressive disorder, recurrent, in partial remission Category: Medical (9) Anxiety: Code(s): F41.9 - Anxiety disorder, unspecified Category: Medical (10) Osteopenia: Onset Date: ~2009 Comment: (Bone Dexa Lumbar T-score -2.2 on 04/26/2010) Code(s): M85.80 - Other specified disorders of bone density and structure, unspecified site Category: Medical Qualifiers: Osteopenia location: unspecified Qualified Code(s): M85.80 - Other specified disorders of bone density and structure, unspecified site (11) Urine incontinence: Code(s): R32 - Unspecified urinary incontinence Category: Medical Qualifiers: Urinary Incontinence type: stress incontinence Qualified Code(s): N39.3 - Stress incontinence (female) (male) Plan Follow-up appointment - The patient is a 69-year-old female with a history of urine incontinence, COPD, hypertension, irritable bowel syndrome, chronic GERD, recurrent cold sores Overweight, drinking 5-6 cans of Coke regular every day, continue smoke half a pack per day presenting with congestion and chest symptoms. - She reports congestion and chest discomfort starting approximately one week ago, attributing these symptoms partly to daily soda consumption and occasional smoking. - She has a history of smoking, currently estimated at six to seven cigarettes per day. - GERD is managed with pantoprazole, with recent exacerbations possibly due to soda intake, which she acknowledges worsening symptoms. - Her history includes hypertension controlled with atenolol, amlodipine, clonidine, and losartan, reporting an improved state with current treatment. - Reports hyperlipidemia with an LDL of 183 mg/dL, with efforts underway to control through dietary modifications. - Weight has increased from September, with a current weight of 169 pounds, indicating dietary factors may be contributing. - Denies significant wheezing; however, chronic bronchitis and previous COPD diagnosis indicate persistent issues related to nicotine dependence. - The patient is considering increased physical activity but has not yet initiated regular exercise due to prior illness. - A significant family history of alcohol-related issues was discussed, impacting the patient's personal choices and lifestyle. - Declined further gastroenterology consultations and intends to manage GERD through primary care adjustments. Medications - Atenolol 50 mg for hypertension - Amlodipine 5 mg for hypertension - Clonidine for hypertension - Losartan 50 mg for hypertension - Disacromine 20 mg for IBS - Pantoprazole for GERD Diagnostic results - Labs: - CBC is within normal limits, no anemia - Electrolytes are normal - Kidney function tests are normal - Liver enzymes are within normal limits - LDL cholesterol level is 183 mg/dL; considered high - Vitamin D levels are low Patient Instructions - Reduce the consumption of soda; start by decreasing the quantity and diluting with water. - Transition to non-sugared beverages like iced tea without added sugar. - Increase water intake throughout the day. - Continue taking vitamin D supplements as prescribed. - Make dietary changes to address elevated cholesterol levels; follow a low- sugar diet. - Consider engaging in regular physical activities, like walking or gym exercises, after recovering from recent illness. - Monitor breathing and respiratory symptoms closely and seek medical attention if symptoms worsen. Medications: New albuterol sulfate 90 mcg/actuation 1 inh inhalation QID PRN 6.7 grams 2RF shortness of breath or wheezing Changed From pantoprazole 40 mg PO BID 60 tabs 6RF K21.9 - Gastro-esophageal reflux disease without esophagitis To pantoprazole 40 mg PO BID 30 days 60 tabs 3RF K21.9 - Gastro-esophageal reflux disease without esophagitis
[2025-01-29 09:42] VITALS: BP 134/74; PULSE 59; TEMP 36.4; O2SAT 97; BMI 28.2
--- OUTSIDE RECORDS SUMMARY | 2025-01-29 10:52 | XMS_ITS | Clinical Summary ---
Author Organization Patient Business Ser [facility] [place] Address [address] [place] [address] Care Team Providers Care Coke Drawer Name Role Phone Pepe Murrieta MD Primary Care Provider [phone] Allergies Active Allergy Reactions Criticality Noted Date Comments Niacin Flushing 10/05/2024 Sulfa (Sulfonamide Antibiotics) Hives 04/2024 Medications losartan (COZAAR) 50 mg tablet Take 1 tablet (50 mg total) by mouth 2 (two) times a day. Active escitalopram (LEXAPRO) 10 mg tablet Take 1 tablet (10 mg total) by mouth 1 (one) time each day. Active amLODIPine (NORVASC) 5 mg tablet Take 1 tablet (5 mg total) by mouth 1 (one) time each day. 30 each 10/07/2024 Active cloNIDine (CATAPRES) 0.1 mg tablet Take 1 tablet (0.1 mg total) by mouth every 8 (eight) hours if needed for high blood pressure (sbp > 180 dbp > 100). 90 tablet 10/06/2024 Active atenoloL (TENORMIN) 50 mg tablet Take 1 tablet (50 mg total) by mouth 1 (one) time each day. 30 each 10/07/2024 Active nicotine (NICODERM CQ) 14 mg/[address] 1 patch on the skin 1 (one) time each day at the same time. 30 each 10/06/2024 Active Active Problems Problem Noted Date Diagnosed Date Hypertensive urgency 10/05/2024 Surgical History Surgery Date Site/Laterality Comments CHOLECYSTECTOMY PROCEDURE: ID LAPAROSCOPY SURG CHOLECYSTECTOMY Medical History Medical History Date Comments Hypertension Hypercholesteremia Shoulder pain, bilateral L steri od inj 10/04/2024 Family History Medical History Relation Name Comments alcoholic liver disease Brother gastric cancer Mother Relation Name Status Comments Brother Mother Social History Tobacco Use Types Packs/Day Years Used Date Smoking Tobacco: Every Day Cigarettes Smokeless Tobacco: Never Tobacco Cessation:Ready to Q uit: Not Asked; Counseling Given: Not Answered Alcohol Use Standard Drinks/Week Comments Not Currently 0 (1 standard drink = 0.6 oz pur e alcohol) Comments Unknown Sex and Gender Information Value Date Recorded Sex Assigned at Not on file Legal Sex Female 6:16 AM EDT Gender Identity Not on file Sexual Orientation Not on file Obstetrics History Last Filed Vital Signs Vital Sign Reading Time Taken Comments Blood Pressure 142/100 10/06/2024 12:36 PM EST Pulse 62 10/06/2024 12:36 PM EST Temperature 36.4 ??C (97.5 ??F) 10/06/2024 6:01 AM ES T Respiratory Rate 16 10/06/2024 11:51 AM EST Oxygen Saturation 96% 10/06/2024 11:51 AM EST Inhaled Oxygen Concentration - - Weight 74.4 kg (164 lb) 10/05/2024 12:44 PM EST Height 165.1 cm (5' 5 ) 10/05/2024 12:44 PM EST Body Mass Index 27.29 10/05/2024 12:44 PM EST Plan of Treatment Health Maintenance Due Date Last Done Comments Breast Cancer Screening 1955 DTaP,Tdap,and Td Vaccines (1 - Tdap) 1974 Pneumococcal Vaccine: 50+ Years (1 of 2 - PCV) 1974 Zoster Vaccines (1 of 2) 2005 Cholesterol Screening (Lipid Panel) 07/01/2022 Colorectal Cancer Screening: Colonoscopy 07/01/2022 Depression Screening 07/01/2022 Falls Risk Assessment 07/01/2022 Hepatitis C Screening 07/01/2022 Medicare Annual Wellness Visit 07/01/2022 Osteoporosis Screening (Bone Density Screening) 07/01/2022 Social Influencers of Health Screening 07/01/2022 COVID-19 Vaccine ( season) 2024 03/03/2021, 02/04/2021 Hypertension/CHF/CAD Annual BMP Blood Test 10/06/2025 10/06/2024, 10/05/2024 RSV Immunization Adult Patients (1 - 1-dose 75+ series) 2030 Influenza Vaccine Completed 08/26/2024, , 10/08/2022, Additional history exists HIB Vaccines Aged Out No longer eligi ble based on patient's age to complete this topic HPV Vaccines Aged Out No longer eligi ble based on patient's age to complete this topic Hepatitis A Vaccines Aged Out No long er eligible based on patient's age to complete this topic Hepatitis B Vaccines Aged Out No long er eligible based on patient's age to complete this topic IPV Vaccines Aged Out No longer eligi ble based on patient's age to complete this topic MMR Vaccines Aged Out No longer eligi ble based on patient's age to complete this topic Meningococcal ACWY Vaccine Aged Out N o longer eligible based on patient's age to complete this topic Meningococcal B Vacine Aged Out No lo nger eligible based on patient's age to complete this topic RSV Immunization Patients Under 20 months Aged Out No longer eligible based on patient's age to complete this topic Varicella Vaccines Aged Out No longer eligible based on patient's age to complete this topic Procedures Procedure Name Priority Date/Time Associated Diagnosis Comments BASIC METABOLIC PANEL Routine 10/06/2024 5:41 AM EST from Last 3 Months or Most Recently Relevant to Health Maintenance Results * (ABNORMAL) Basic metabolic panel (10/06/2024 5:41 AM EST) Sodium 142 133 - 145 mmol/L LAB CHEMISTRY METHOD 10/06/2024 6:[address] [facility] Potassium 4.2 3.5 - 5.5 mmol/L LAB CHEMISTRY METHOD 10/06/2024 6:[address] [facility] Chloride 111(H) 96 - 110 mmol/L LAB CHEMISTRY METHOD 10/06/2024 6:[address] [facility] CO2 24 21 - 32 mmol/L LAB CHEMISTRY METHOD 10/06/2024 6:[address] [facility] Anion Gap 7 3 - 11 LAB CHEMISTRY METHOD 10/06/2024 6:[address] [facility] Glucose 119(H) 70 - 100 mg/dL LAB CHEMISTRY METHOD 10/06/2024 6:[address] [facility] BUN 16 5 - 25 mg/dL LAB CHEMISTRY METHOD 10/06/2024 6:[address] [facility] Creatinine 0.64 0.50 - 1.10 mg/dL LAB CHEMISTRY METHOD 10/06/2024 6:[address] [facility] eGFR 96 >=60 mL/min/1. 73m2 LAB CHEMISTRY METHOD 10/06/2024 6:[address] [facility] Comment:Calculation based on the??Chronic Kidney Disease Epidemiology Collaboration (CKD-EPI) equation refit??without adjustment for race. BUN/Creatinine Ratio 25.0 LAB CHEMISTRY METHOD 10/06/2024 6:[address] [facility] Calcium 9.9 8.5 - 10.5 mg/dL LAB CHEMISTRY METHOD 10/06/2024 6:[address] [facility] Blood Venous blood specimen / Unknown Venipuncture / Unknown 10/06/2024 5:41 AM EST 10/06/2024 5:46 AM EST Geronimo Garibay MD LAB BLOOD ORDERABLES Final Re sult [facility] [address] [place] [address], from Last 3 Months or Most Recently Relevant to Health Maintenance Insurance MEDICARE Advance Directives * Full Code - Default (Latest Code Status on File) Date Activated Date Inactivated Comments 10/05/2024 4:20 PM 10/06/2024 3:02 PM This is orde r is used when code status has not been discussed with the patient, or code status is otherwise unknown/unconfirmed To update the patient's code status, place a code status order. Do not modify or discontinue any currently active code status orders. Care Teams Coke Drawer Relationship Specialty Start Date End Date Pepe Murrieta MD [address] [place] [address] PCP - General 09/27/16
== END 2025-01-29 10:08 | disposition home or self-care (01) ==
LOC: HO.HMCC 09:39
PROVIDERS: PCP Internal Medicine; Visit Provider Internal Medicine
DX: I10 Essential (primary) hypertension (principal); J41.0 Simple chronic bronchitis; J43.8 Other emphysema; F33.41 Major depressive disorder, recurrent, in partial remission; E78.00 Pure hypercholesterolemia, unspecified; F17.210 Nicotine dependence, cigarettes, uncomplicated; K21.9 Gastro-esophageal reflux disease without esophagitis; K58.2 Mixed irritable bowel syndrome; F41.9 Anxiety disorder, unspecified; M85.80 Other specified disorders of bone density and structure, unspecified site; N39.3 Stress incontinence (female) (male)

== ENCOUNTER → 2025-01-29 09:38 | Outpatient (BNVA) | payer MEDICARE, SELFPAY | PROVIDERS: PCP Internal Medicine; Visit Provider Internal Medicine | DX: I10 Essential (primary) hypertension (principal); E78.00 Pure hypercholesterolemia, unspecified; J41.0 Simple chronic bronchitis; J43.8 Other emphysema; K21.9 Gastro-esophageal reflux disease without esophagitis; K58.2 Mixed irritable bowel syndrome; F41.9 Anxiety disorder, unspecified; M85.80 Other specified disorders of bone density and structure, unspecified site; N39.3 Stress incontinence (female) (male); F17.210 Nicotine dependence, cigarettes, uncomplicated; Z71.6 Tobacco abuse counseling | CPT/HCPCS: 96127; 99212 ==

== ENCOUNTER 2025-05-09 09:00 | Outpatient (AMB) | payer MEDICARE, SELFPAY ==
--- NOTE | 2025-05-09 09:05 | A.OFFPC_ITS ---
Vital Signs 05/09/25 09:06 Height 5 ft 5 in Weight 160 lb BMI 26.6 BP 132/76 Blood Pressure Location Lt brachial Position Sitting Pulse 62 Pulse Source Pulse Oximeter Pulse Oximetry (%) 97 Oxygen Delivery Method Room Air Intake Visit Reasons: Meds review Tutoring Manager Required: No Accompanied by: Self / Same As Patient Allergies Sulfa (Sulfonamide Antibiotics) Allergy (Mild, Verified 05/09/25 09:06) HIVES inositol niacinate (Niacin No Flush) Allergy (Unknown, Verified 05/09/25 09:06) N/V niacin (Niacin No Flush) Allergy (Unknown, Verified 05/09/25 09:06) N/V Medication List - Last Reconciled 05/09/25 by Pepe Murrieta MD albuterol sulfate 90 mcg/actuation 1 inh inhalation QID PRN amlodipine 5 mg PO DAILY atenolol 50 mg PO DAILY cefpodoxime 200 mg PO BID clonidine HCl 0.05 mg (1/2 x 0.1 mg) PO BEDTIME dicyclomine 20 mg PO QID 90 days NS escitalopram oxalate 10 mg PO DAILY losartan 50 mg PO BID 90 days pantoprazole 40 mg PO BID 30 days sucralfate 1 g PO QID valacyclovir 500 mg PO DAILY PRN Tobacco use date assessed: 01/29/25 Fall risk assessment: 1 Fall in past year Last assessed Fall Risk: 05/09/25 Dental Screening Dental Screen Date: 01/29/25 HPI Meds review HPI Details Hospital discharge follow-up patient was at [facility] 02 of May Presented as she was not feeling well Onto have pyelonephritis on CT scan and was treated with antibiotics We will be repeating the urinalysis again today presenting with bruising on her arms and skin splitting. The patient reports frequent bruising on her arms without significant scratches and observes her skin splitting. She attributes this to likely banging into objects rather than scratching. The issue does not involve her legs. - She also reports difficulty with romel ce and gait issues, mentioning that she feels unsteady and often bumps into hu. The patient denies symptoms of moving during sleep but recalls falling out of bed due to her feet getting tangled in sheets, which led to her installing a side guard on the bed. - The patient describes a feeling of yajaira ng unsteady for an unspecified duration, specifically stating that she is unsure if she remains steady on her feet. - The patient was recently discharged fr om an emergency department visit due to a kidney infection accompanied by a urinary tract infection (UTI). She recalls severe illness during this episode, mistaking her symptoms for food poisoning, which included retching for five days. She was surprised by the diagnosis, as she had no conventional UTI symptoms like frequent urination or burning. During hospitalization, diagnostic imaging (likely a CT scan) showed left kidney involvement. - she was treated with cefopadaxamine fo r the infection, expressing significant discomfort with the medication but reporting feeling better after five days of treatment. - Blood work during the hospital stay sh owed low potassium (3.0) and magnesium levels, prompting supplementation. Electrolytes were noted to be imbalanced. With low magnesium as well which was also supplemented - The glomerular filtration rate was rep orted to be 54, indicating affected kidney function. Past examinations were noted to include a normal electrocardiogram (EKG) and gallbladder removal (cholecystectomy). Surgical History: - Cholecystectomy Social History: - The patient has been abstinent from al cohol for 19 years. - She sleeps separately from her due to his snoring. - The patient reports occasional physica l activity getting up at night to use the bathroom. Medications - Atenolol 50 mg for hypertension - Amlodipine 5 mg for hypertension - Clonidine for hypertension - Losartan 50 mg for hypertension - Disacromine 20 mg for IBS - Pantoprazole for GERD Diagnostic results - Labs: - Potassium level: 3.0 (low) - Glomerular filtration rate: 54 - Lactic acid: 2.2 - Magnesium level: low (supplemented) - Tests and Diagnostics: - CT abdomen sh owed mild enhancement of left kidney consistent with pyelonephritis - Urinalysis positive for nitrate, leuko cytes, protein, ketones, and blood - EKG: Borderline, normal sinus rhythm, moderate voltage criteria for LVH Medical problems: - Chronic kidney disease (stages unspeci fied) - Hypertension - Urinary tract infection - Pyelonephritis - hypertension - anxiety and depression - easy bruising - chronic GERD - possible sleep disorder - imbalance - word-finding difficulty Patient Instructions - Repeat urine test at the lab next door for follow-up - Maintain follow-up appointment in [facility] - Continue current medications as prescr ibed unless otherwise instructed by a healthcare provider - see neurologist, referral placed - continue medications Review of Systems General: No fever no chills neurological: No headaches no dizziness ear nose throat: No sore throat no hearing difficulty no ear pain cardiovascular: No syncope, no chest pain, no palpitations gastrointestinal: No nausea vomiting or diarrhea endocrine: No polyuria polydipsia no heat intolerance genitourinary: No dysuria skin: No new complaints Physical Exam general: No acute distress HEENT: No acute findings neck: Supple respiratory system: Able to talk in full sentences, no audible wheeze no stridor cardiovascular: S1-S2 RRR gastrointestinal: No pain extremities: Bruising on arms, no findings on legs PROCESS STEWARD: Alert awake oriented x3 motor sensory intact, noted issues with gait and balance skin: Bruises present all over upper extremities but none on the lower extremity, normal turgor PFSH Medical History Hypertension, essential Hyperlipidemia COPD (chronic obstructive pulmonary disease) Nicotine dependence, cigarettes, uncomplicated Cough [id number] condition Osteopenia (~2009) Bladder disorder Dysuria Hiatal hernia Gallstones Post-cholecystectomy syndrome Nausea and vomiting Major depression, recurrent Anxiety Insomnia Restless leg syndrome Renal cyst, left Shortness of breath Menopause Surgical History History of cholecystectomy (~03/2022) History of colonoscopy History of esophagogastroduodenoscopy (EGD) History of endometrial ablation Family History Father Diabetes Liver cancer Mother HTN (hypertension) Other Mental health disorder Substance use disorder Social History Housing: House Alcohol intake: never Patient Tobacco Use Status: Current everyday Tobacco user Tobacco use type: Cigarette Years Smoked: (onset 20yo, 1/2ppd x 46yrs, 23pyh) e-Cigarette/Vaping Use: Never Used Second Hand Smoke Exposure: Yes service: No Current occupational status: employed Cognitive needs: No Hearing needs: No Vision needs: Yes Female Reproductive History Menstrual Age of Menarche: 11 Questionnaire Thrive Questionnaire Date Thrive assessed: 05/09/25 I am a: Patient What is your living situation today?: I have a steady place to live Within the past 12 months, did the food you bought not last and you didn't have the money to get more?: Never true Within the past 12 months, did you worry whether your food would run out before you got money to buy more?: Never true Do you have trouble paying for medicines?: No Do you have trouble getting transportation to medical appointments?: No Do you have trouble paying your heating and electricity bill?: No Do you have trouble taking care of your child, family member or friend?: No Do you have trouble with day-to-day activities such as bathing, preparing meals, shopping, managing finances, etc.?: No Are you currently unemployed and looking for a job?: No Are you interested in more education?: No Please select the resources that you would like help with: None Currently or been in a relationship where the following occur: No concerns reported THRIVE Score: 0 KELLY-7 AMB Questionnaire KELLY-7 Date KELLY - 7 assessed: 01/29/25 Source: Developed by Drs. Vinnie Draper, Casie Ribeiro, Rainer Goodman and colleagues, with an educational ella from [employer]. Physical exam (Primary Care) Vital Signs: Last Vital Signs Pulse 62 05/09/25 09:06 BP 132/76 05/09/25 09:06 Pulse Ox 97 05/09/25 09:06 Oxygen Delivery Method Room Air 05/09/25 09:06 BMI result Body Mass Index 26.6 Tobacco/Smoking Status: Tobacco use Status Tobacco use date assessed 01/29/25 05/09/25 09:10 Patient Tobacco Use Status Current everyday Tobacco 05/09/25 09:10 Tobacco use type Cigarette 05/09/25 09:10 e-Cigarette/Vaping Use Never Used 05/09/25 09:10 Thrive Assessment: Date of Thrive Assessment Date Thrive assessed 05/09/25 05/09/25 09:10 Currently or been in a relationship where the following occur: No concerns reported Coding Level of Care Code Est Pt Level 5 (63197) Diagnoses Seen in emergency room Z76.89 Cystitis, acute hemorrhagic N30.01 Sleep disorder G47.9 Memory change R41.3 Word finding difficulty R47.89 Balance problem R26.89 Hypertension, essential I10 Pure hypercholesterolemia E78.00 Hyperlipidemia type: pure hypercholesterolemia Other emphysema J43.8 Emphysema type: other Gastroesophageal reflux disease without esophagitis K21.9 Esophagitis presence: without esophagitis Depression, major, recurrent, in partial remission F33.41 Anxiety F41.9 Time Spent (min) 45 Comment Reviewing chart/emergency room note/labs/pwya-oz-ienu/coordination of care Assessment & Plan Assessment & Plan (1) Seen in emergency room: Code(s): Z76.89 - Persons encountering health services in other specified circumstances Category: Medical (2) Cystitis, acute hemorrhagic: Code(s): N30.01 - Acute cystitis with hematuria Category: Medical (3) Sleep disorder: Code(s): G47.9 - Sleep disorder, unspecified Category: Medical (4) Memory change: Code(s): R41.3 - Other amnesia Category: Medical (5) Word finding difficulty: Code(s): R47.89 - Other speech disturbances Category: Medical (6) Balance problem: Code(s): R26.89 - Other abnormalities of gait and mobility Category: Medical (7) Hypertension, essential: Code(s): I10 - Essential (primary) hypertension Category: Medical (8) Hyperlipidemia: Code(s): E78.5 - Hyperlipidemia, unspecified Category: Medical Qualifiers: Hyperlipidemia type: pure hypercholesterolemia Qualified Code(s): E78.00 - Pure hypercholesterolemia, unspecified (9) Emphysema lung: Comment: Because of decreased diffusion capacity, it seems that she may have pulmonary emphysema, even though it was not reported on chest x-ray. Code(s): J43.9 - Emphysema, unspecified Category: Medical Qualifiers: Emphysema type: other Qualified Code(s): J43.8 - Other emphysema (10) GERD (gastroesophageal reflux disease): Code(s): K21.9 - Gastro-esophageal reflux disease without esophagitis Category: Medical Qualifiers: Esophagitis presence: without esophagitis Qualified Code(s): K21.9 - Gastro-esophageal reflux disease without esophagitis (11) Depression, major, recurrent, in partial remission: Code(s): F33.41 - Major depressive disorder, recurrent, in partial remission Category: Medical (12) Anxiety: Code(s): F41.9 - Anxiety disorder, unspecified Category: Medical Plan Hospital discharge follow-up patient was at [facility] 02 of May Presented as she was not feeling well Onto have pyelonephritis on CT scan and was treated with antibiotics We will be repeating the urinalysis again today presenting with bruising on her arms and skin splitting. The patient reports frequent bruising on her arms without significant scratches and observes her skin splitting. She attributes this to likely banging into objects rather than scratching. The issue does not involve her legs. - She also reports difficulty with balance and gait issues, mentioning that she feels unsteady and often bumps into hu. The patient denies symptoms of moving during sleep but recalls falling out of bed due to her feet getting tangled in sheets, which led to her installing a side guard on the bed. - The patient describes a feeling of being unsteady for an unspecified duration, specifically stating that she is unsure if she remains steady on her feet. - The patient was recently discharged from an emergency department visit due to a kidney infection accompanied by a urinary tract infection (UTI). She recalls severe illness during this episode, mistaking her symptoms for food poisoning, which included retching for five days. She was surprised by the diagnosis, as she had no conventional UTI symptoms like frequent urination or burning. During hospitalization, diagnostic imaging (likely a CT scan) showed left kidney involvement. - she was treated with cefopadaxamine for the infection, expressing significant discomfort with the medication but reporting feeling better after five days of treatment. - Blood work during the hospital stay showed low potassium (3.0) and magnesium levels, prompting supplementation. Electrolytes were noted to be imbalanced. With low magnesium as well which was also supplemented - The glomerular filtration rate was reported to be 54, indicating affected kidney function. Past examinations were noted to include a normal electrocardiogram (EKG) and gallbladder removal (cholecystectomy). Surgical History: - Cholecystectomy Social History: - The patient has been abstinent from alcohol for 19 years. - She sleeps separately from her due to his snoring. - The patient reports occasional physical activity getting up at night to use the bathroom. Medications - Atenolol 50 mg for hypertension - Amlodipine 5 mg for hypertension - Clonidine for hypertension - Losartan 50 mg for hypertension - Disacromine 20 mg for IBS - Pantoprazole for GERD Diagnostic results - Labs: - Potassium level: 3.0 (low) - Glomerular filtration rate: 54 - Lactic acid: 2.2 - Magnesium level: low (supplemented) - Tests and Diagnostics: - CT abdomen showed mild enhancement of left kidney consistent with pyelonephritis - Urinalysis positive for nitrate, leukocytes, protein, ketones, and blood - EKG: Borderline, normal sinus rhythm, moderate voltage criteria for LVH Medical problems: - Chronic kidney disease (stages unspecified) - Hypertension - Urinary tract infection - Pyelonephritis - hypertension - anxiety and depression - easy bruising - chronic GERD - possible sleep disorder - imbalance - word-finding difficulty Patient Instructions - Repeat urine test at the lab next door for follow-up - Maintain follow-up appointment in May - Continue current medications as prescribed unless otherwise instructed by a healthcare provider - see neurologist, referral placed - continue medications Orders: Orders UA CC w/rflx Micro + Cult Today N30.01 - Acute cystitis with hematuria Referrals Neurology Referral G47.9 - Sleep disorder, unspecified, R26.89 - Other abnormalities of gait and mobility, R41.3 - Other amnesia, R47.89 - Other speech disturbances
[2025-05-09 09:06] VITALS: BP 132/76; PULSE 62; O2SAT 97; BMI 26.6
== END 2025-05-09 10:04 | disposition home or self-care (01) ==
LOC: HO.HMCC 09:01
PROVIDERS: PCP Internal Medicine; Visit Provider Internal Medicine
DX: N30.01 Acute cystitis with hematuria (principal); Z76.89 Persons encountering health services in other specified circumstances; G47.9 Sleep disorder, unspecified; J43.8 Other emphysema; R41.3 Other amnesia; R47.89 Other speech disturbances; R26.89 Other abnormalities of gait and mobility; I10 Essential (primary) hypertension; E78.00 Pure hypercholesterolemia, unspecified; K21.9 Gastro-esophageal reflux disease without esophagitis; F33.41 Major depressive disorder, recurrent, in partial remission; F41.9 Anxiety disorder, unspecified

== ENCOUNTER 2025-05-09 09:00 | Outpatient (REF) | payer MEDICARE, SELFPAY ==
[2025-05-09 10:36] LABS: Appearance Urine Cloudy; Glucose Urine UA Negative (Negative); PH 6.0 (5.0-9.0); Specific Gravity - Urine 1.015 (1.005-1.025); UMIC TRIGGER UACC YES
[2025-05-09 10:41] LABS: UACC Culture Trigger YES
== END 2025-05-09 09:01 | disposition home or self-care (01) ==
LOC: HO.HMGCLDS 09:00
PROVIDERS: PCP Internal Medicine; Visit Provider Internal Medicine
DX: Z09 Encounter for follow-up examination after completed treatment for conditions other than malignant neoplasm (principal); N30.01 Acute cystitis with hematuria; G47.9 Sleep disorder, unspecified; R41.3 Other amnesia; R47.89 Other speech disturbances; R26.89 Other abnormalities of gait and mobility; E78.00 Pure hypercholesterolemia, unspecified; I12.9 Hypertensive chronic kidney disease with stage 1 through stage 4 chronic kidney disease, or unspecified chronic kidney disease; N18.9 Chronic kidney disease, unspecified; J43.8 Other emphysema; K21.9 Gastro-esophageal reflux disease without esophagitis; F33.41 Major depressive disorder, recurrent, in partial remission; F41.9 Anxiety disorder, unspecified; Z79.899 Other long term (current) drug therapy
CPT/HCPCS: 81001; 87086; 99212

== ENCOUNTER 2025-06-04 08:56 | Outpatient (AMB) | payer MEDICARE, SELFPAY ==
[2025-06-04 09:05] VITALS: BP 120/72; PULSE 67; O2SAT 97; BMI 26.0
--- NOTE | 2025-06-04 09:05 | A.OFFPC_ITS ---
Vital Signs 06/04/25 09:05 Height 5 ft 5 in Weight 156 lb BMI 26.0 BP 120/72 Blood Pressure Location Lt brachial Position Sitting Pulse 67 Pulse Source Pulse Oximeter Pulse Oximetry (%) 97 Oxygen Delivery Method Room Air Intake Visit Reasons: 3 months f/up Allergies Sulfa (Sulfonamide Antibiotics) Allergy (Mild, Verified 06/04/25 09:05) HIVES inositol niacinate (Niacin No Flush) Allergy (Unknown, Verified 06/04/25 09:05) N/V niacin (Niacin No Flush) Allergy (Unknown, Verified 06/04/25 09:05) N/V Medication List - Last Reconciled 06/04/25 by Pepe Murrieta MD albuterol sulfate 90 mcg/actuation 1 inh inhalation QID PRN amlodipine 5 mg PO DAILY atenolol 50 mg PO DAILY clonidine HCl 0.05 mg (1/2 x 0.1 mg) PO BEDTIME dicyclomine 20 mg PO QID 90 days NS escitalopram oxalate 10 mg PO DAILY losartan 50 mg PO BID 90 days pantoprazole 40 mg PO BID 30 days sucralfate 1 g PO QID valacyclovir 500 mg PO DAILY PRN Tobacco use date assessed: 01/29/25 Fall risk assessment: 1 Fall in past year Last assessed Fall Risk: 06/04/25 Dental Screening Dental Screen Date: 01/29/25 HPI 3 months f/up HPI Details Ongoing care visit - The patient is a 69-year-old female pr esenting for follow-up care after recovery from a kidney infection and urinary tract infection, initially discussed during a visit in April. She reported full recovery without any new events. - The patient reports chronic acid reflu x but is accustomed to it medication is helping - Reports a persistent sensation of flui d accumulation in the ears associated with dizziness, acknowledged as potentially due to seasonal allergies exacerbated in the current season. - History of tobacco use, previously cea sed for a period due to illness, with desire expressed to quit again. - Discusses long-standing blood pressure control with prior episodes of non- compliance affecting management, currently stable on multiple antihypertensives. 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 Medical History: - Kidney infection and urinary tract inf ection (recent recovery) - Gastroesophageal reflux disease - Irritable bowel syndrome - Hypertension - Osteopenia - Chronic obstructive pulmonary disease (COPD)/Emphysema Social History: - Continues tobacco use, efforts to quit discussed with recognition of influence from spouse's smoking habits. - No alcohol consumption for the past 19 years. - Reports use of kenrick capsules for corona sea management. - Family structure includes adult childr en residing outside the immediate area, and a supportive network of grandchildren. Medications - Pantoprazole for acid reflux - Atenolol, amlodipine, clonidine, losar kirkpatrick for hypertension management - Dicyclomine for irritable bowel syndro me - Vitamin D (with K2) for supplementatio n - Kenrick capsules for nausea relief Problem List - Gastroesophageal Reflux Disease (GERD) - Hypertension - Irritable Bowel Syndrome (IBS) - Chronic Obstructive Pulmonary Disease (COPD) - Recent Kidney Infection (resolved) - Osteopenia need repeat bone density - behind on mammograms need to make appo intment Diagnostic results - Labs: CBC and metabolic profile discus sed as required, no current results available - Tests: Upcoming lung screening and bon e density (DEXA scan), and mammogram mentioned - Diagnostics: Sleep study referral note d, no results presented Patient Instructions - Continue taking current blood pressure and reflux medications. - Purchase and take Claritin for seasona l allergies. - Schedule and attend appointments for l vivek screening, sleep study, DEXA scan, and mammogram. - Consider smoking cessation strategies and discuss further efforts in upcoming visits. - continue medications - follow-up 4 months Review of Systems General: No fever no chills neurological: No headaches no dizziness ear nose throat: No sore throat no hearing difficulty no ear pain cardiovascular: No syncope, no chest pain, no palpitations gastrointestinal: No nausea vomiting or diarrhea endocrine: No polyuria polydipsia no heat intolerance genitourinary: No dysuria skin: No new complaints Physical Exam general: No acute distress HEENT: Fluid sensation in ears, dizziness reported neck: Supple respiratory system: Able to talk in full sentences, no audible wheeze no stridor cardiovascular: S1-S2 RRR gastrointestinal: No pain, taking dicyclomine for irritable bowel extremities: No new findings MANAGER PURCHASING: Alert awake oriented x3 motor sensory intact skin: Normal turgor [facility] Medical History Hypertension, essential Hyperlipidemia COPD (chronic obstructive pulmonary disease) Nicotine dependence, cigarettes, uncomplicated Cough [id number] condition Osteopenia (~2009) Bladder disorder Dysuria Hiatal hernia Gallstones Post-cholecystectomy syndrome Nausea and vomiting Major depression, recurrent Anxiety Insomnia Restless leg syndrome Renal cyst, left Shortness of breath Menopause Surgical History History of cholecystectomy (~03/2022) History of colonoscopy History of esophagogastroduodenoscopy (EGD) History of endometrial ablation Family History Father Diabetes Liver cancer Mother HTN (hypertension) Other Mental health disorder Substance use disorder Social History Housing: House Alcohol intake: never Patient Tobacco Use Status: Current everyday Tobacco user Tobacco use type: Cigarette Years Smoked: (onset 20yo, 1/2ppd x 46yrs, 23pyh) e-Cigarette/Vaping Use: Never Used Second Hand Smoke Exposure: Yes service: No Current occupational status: employed Cognitive needs: No Hearing needs: No Vision needs: Yes Female Reproductive History Menstrual Age of Menarche: 11 Questionnaire Thrive Questionnaire Date Thrive assessed: 01/19/25 I am a: Patient What is your living situation today?: I have a steady place to live Within the past 12 months, did the food you bought not last and you didn't have the money to get more?: Never true Within the past 12 months, did you worry whether your food would run out before you got money to buy more?: Never true Do you have trouble paying for medicines?: No Do you have trouble getting transportation to medical appointments?: No Do you have trouble paying your heating and electricity bill?: No Do you have trouble taking care of your child, family member or friend?: No Do you have trouble with day-to-day activities such as bathing, preparing meals, shopping, managing finances, etc.?: No Are you currently unemployed and looking for a job?: No Are you interested in more education?: No Please select the resources that you would like help with: None Currently or been in a relationship where the following occur: No concerns reported THRIVE Score: 0 KELLY-7 AMB Questionnaire KELLY-7 Date KELLY - 7 assessed: 01/29/25 Source: Developed by DrsSharifa Draper, Casie Ribeiro, Rainer Goodman and colleagues, with an educational ella from [employer]. Physical exam (Primary Care) Vital Signs: Last Vital Signs Pulse 67 06/04/25 09:05 BP 120/72 06/04/25 09:05 Pulse Ox 97 06/04/25 09:05 Oxygen Delivery Method Room Air 06/04/25 09:05 BMI result Body Mass Index 26.0 Tobacco/Smoking Status: Tobacco use Status Tobacco use date assessed 01/29/25 06/04/25 09:08 Patient Tobacco Use Status Current everyday Tobacco 06/04/25 09:08 Tobacco use type Cigarette 06/04/25 09:08 e-Cigarette/Vaping Use Never Used 06/04/25 09:08 Thrive Assessment: Date of Thrive Assessment Date Thrive assessed 01/19/25 06/04/25 09:08 Currently or been in a relationship where the following occur: No concerns reported Coding Level of Care Code Est Pt Level 4 (20006) Complex EM visit Add On G2211 Diagnoses Hypertension, essential I10 Osteopenia, unspecified location M85.80 Osteopenia location: unspecified Gastroesophageal reflux disease without esophagitis K21.9 Esophagitis presence: without esophagitis Irritable bowel syndrome with both constipation and diarrhea K58.2 Other emphysema J43.8 Emphysema type: other Nicotine dependence, cigarettes, uncomplicated F17.210 Assessment & Plan Assessment & Plan (1) Hypertension, essential: Code(s): I10 - Essential (primary) hypertension Category: Medical (2) Osteopenia: Onset Date: ~2009 Comment: (Bone Dexa Lumbar T-score -2.2 on 04/26/2010) Code(s): M85.80 - Other specified disorders of bone density and structure, unspecified site Category: Medical Qualifiers: Osteopenia location: unspecified Qualified Code(s): M85.80 - Other specified disorders of bone density and structure, unspecified site (3) GERD (gastroesophageal reflux disease): Code(s): K21.9 - Gastro-esophageal reflux disease without esophagitis Category: Medical Qualifiers: Esophagitis presence: without esophagitis Qualified Code(s): K21.9 - Gastro-esophageal reflux disease without esophagitis (4) Irritable bowel syndrome with both constipation and diarrhea: Code(s): K58.2 - Mixed irritable bowel syndrome Category: Medical (5) Emphysema lung: Comment: Because of decreased diffusion capacity, it seems that she may have pulmonary emphysema, even though it was not reported on chest x-ray. Code(s): J43.9 - Emphysema, unspecified Category: Medical Qualifiers: Emphysema type: other Qualified Code(s): J43.8 - Other emphysema (6) Nicotine dependence, cigarettes, uncomplicated: Comment: (current smoker, onset 20yo, 1/2ppd x 48yrs, 24pyh) Code(s): F17.210 - Nicotine dependence, cigarettes, uncomplicated Category: Medical Plan Ongoing care visit - The patient is a 69-year-old female presenting for follow-up care after recovery from a kidney infection and urinary tract infection, initially discussed during a visit in April. She reported full recovery without any new events. - The patient reports chronic acid reflux but is accustomed to it medication is helping - Reports a persistent sensation of fluid accumulation in the ears associated with dizziness, acknowledged as potentially due to seasonal allergies exacerbated in the current season. - History of tobacco use, previously ceased for a period due to illness, with desire expressed to quit again. - Discusses long-standing blood pressure control with prior episodes of non- compliance affecting management, currently stable on multiple antihypertensives. 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 Medical History: - Kidney infection and urinary tract infection (recent recovery) - Gastroesophageal reflux disease - Irritable bowel syndrome - Hypertension - Osteopenia - Chronic obstructive pulmonary disease (COPD)/Emphysema Social History: - Continues tobacco use, efforts to quit discussed with recognition of influence from spouse's smoking habits. - No alcohol consumption for the past 19 years. - Reports use of kenrick capsules for nausea management. - Family structure includes adult children residing outside the immediate area, and a supportive network of grandchildren. Medications - Pantoprazole for acid reflux - Atenolol, amlodipine, clonidine, losartan for hypertension management - Dicyclomine for irritable bowel syndrome - Vitamin D (with K2) for supplementation - Kenrick capsules for nausea relief Problem List - Gastroesophageal Reflux Disease (GERD) - Hypertension - Irritable Bowel Syndrome (IBS) - Chronic Obstructive Pulmonary Disease (COPD) - Recent Kidney Infection (resolved) - Osteopenia need repeat bone density - behind on mammograms need to make appointment Diagnostic results - Labs: CBC and metabolic profile discussed as required, no current results available - Tests: Upcoming lung screening and bone density (DEXA scan), and mammogram mentioned - Diagnostics: Sleep study referral noted, no results presented Patient Instructions - Continue taking current blood pressure and reflux medications. - Purchase and take Claritin for seasonal allergies. - Schedule and attend appointments for lung screening, sleep study, DEXA scan, and mammogram. - Consider smoking cessation strategies and discuss further efforts in upcoming visits. - continue medications - follow-up 4 months Orders: Orders Vitamin D 25-OH (D2 and D3) Today F17.210 - Nicotine dependence, cigarettes, uncomplicated, I10 - Essential (primary) hypertension, J43.8 - Other emphysema, K21.9 - Gastro-esophageal reflux disease without esophagitis, K58.2 - Mixed irritable bowel syndrome, M85.80 - Other specified disorders of bone density and structure, unspecified site TSH reflex Free T4 Today F17.210 - Nicotine dependence, cigarettes, uncomplicated, I10 - Essential (primary) hypertension, J43.8 - Other emphysema, K21.9 - Gastro-esophageal reflux disease without esophagitis, K58.2 - Mixed irritable bowel syndrome, M85.80 - Other specified disorders of bone density and structure, unspecified site MM tomosynthesis screening BI Today M85.80 - Other specified disorders of bone density and structure, unspecified site, Z12.31 - Encounter for screening mammogram for malignant neoplasm of breast Complete Blood Count Auto Diff Today F1.210 - Nicotine dependence, cigarettes, uncomplicated, I10 - Essential (primary) hypertension, J43.8 - Other emphysema, K21.9 - Gastro-esophageal reflux disease without esophagitis, K58.2 - Mixed irritable bowel syndrome, M85.80 - Other specified disorders of bone density and structure, unspecified site Comprehensive Met. Panel Today 7.210 - Nicotine dependence, cigarettes, unc omplicated, I10 - Essential (primary) hypertension, J43.8 - Other emphysema, K21.9 - Gastro-esophageal reflux disease without esophagitis, K58.2 - Mixed irritable bowel syndrome, M85.80 - Other specified disorders of bone density and structure, unspecified site Vitamin B12 Today F17.210 - Nicotine dependence, cigarettes, uncomplicated, I10 - Essential (primary) hypertension, J43.8 - Other emphysema, K21.9 - Gastro- esophageal reflux disease without esophagitis, K58.2 - Mixed irritable bowel syndrome, M85.80 - Other specified disorders of bone density and structure, un specified site XR DEXA axial skeleton Today M85.80 - Other specified disorders of bone density and structure, unspecified site, Z12.31 - Encounter for screening mammogram for malignant neoplasm of breast
--- OUTSIDE RECORDS SUMMARY | 2025-06-04 09:07 | XMS_ITS | Clinical Summary ---
Author Organization Patient Business Ser [facility] [place] Address [address] [place] [address] Care Team Providers Care Tappet Adjuster Name Role Phone Pepe Murrieta MD Primary Care Provider [phone] Allergies Active Allergy Reactions Criticality Noted Date [...] 1 (one) time each day. 30 each 4 Active cloNIDine (CATAPRES) 0.1 mg tablet Take 1 tablet (0.1 mg total) by mouth every 8 (eight) hours if needed for high blood pressure (sbp > 180 dbp > 100). 90 tablet 4 Active atenoloL (TENORMIN) 50 mg tablet Take 1 tablet (50 mg total) by mouth 1 (one) time each day. 30 each 4 Active nicotine (NICODERM CQ) 14 mg/[address] 1 patch on the skin 1 (one) time each day at the same time. 30 each 4 Active cefpodoxime (VANTIN) 200 mg tablet Take 1 tablet (200 mg total) by mouth 2 (two) times a day for 10 days. 20 each 5 05/12/20 25 ondansetron ODT (ZOFRAN-ODT) 4 mg disintegrating tablet Let 1 tablet dissolve under the tongue three times daily as needed for nausea or vomiting. 10 tablet 5 05/09/20 25 sucralfate (CARAFATE) 1 gram tablet Take 1 tablet (1 g total) by mouth 4 (four) times a day for 10 days. 40 tablet 5 05/12/20 25 Active Problems Problem Noted Date Diagnosed Date Hypertensive urgency 10/05/2024 Encounters Date Type Department Care Team Description 05/02/2025 2:40 PM EDT - 05/02/2025 11:17 PM EDT Emergency [facility] Emergency [address] [place] [address] Kiarra Grey, Nausea and vomiting, unspecified vomiting type (Primary Dx); Pyelonephritis Discharge Disposition: Home or Self Care from Last 3 Months Surgical History Surgery Date Site/Laterality Comments CHOLECYSTECTOMY PROCEDURE: [place] LAPAROSCOPY SURG CHOLECYSTECTOMY Medical History Medical History [...] Sign Reading Time Taken Comments Blood Pressure 157/103 05/02/2025 10:58 PM EDT Provider aware. Pulse 86 05/02/2025 10:58 PM EDT Temperature 37.1 C (98.7 F) 05/02/2025 10:58 PM EDT Respiratory Rate 16 05/02/2025 10:5 8 PM EDT Oxygen Saturation 97% 05/02/2025 10: 58 PM EDT Inhaled Oxygen Concentration - - Weight 74.8 kg (165 lb) 05/02/2025 2:47 PM EDT Height 165.1 cm (5' 5 ) 05/02/2025 2:47 PM EDT Body Mass Index 27.46 05/02/2025 2:47 PM EDT Plan of Treatment Health Maintenance Due Date Last Done Comments Breast Cancer Screening 1955 DTaP,Tdap,and Td Vaccines (1 - Tdap) 1974 Pneumococcal Vaccine: 50+ Years (1 of 2 - PCV) 1974 Zoster Vaccines (1 of 2) 2005 Cholesterol Screening (Lipid Panel) 07/01/2022 Colorectal Cancer Screening: Colonoscopy 07/01/2022 Hepatitis C Screening 07/01/2022 Medicare Annual Wellness Visit 07/01/2022 Osteoporosis Screening (Bone Density Screening) 07/01/2022 Social Influencers of Health Screening 07/01/2022 COVID-19 Vaccine ( season) 2024 03/03/2021, 02/04/2021 Depression Screening 10/30/2024 Influenza Vaccine (#1) 2025 , 08/20/2023, 10/08/2022, Additional history exists Falls Risk Assessment 05/02/2026 05/02/2025 Hypertension/CHF/CAD Annual BMP Blood Test 05/02/2026 05/02/2025, 10/06/2024, 10/05/2024 RSV Immunization Adult Patients (1 - 1-dose 75+ series) 2030 HIB Vaccines Aged Out No longer eligi [...] age to complete this topic Meningococcal B Vaccine Aged Out No l onger eligible based on patient's age to complete this topic RSV Immunization Patients Under 20 months Aged Out No longer eligible based on patient's age to complete this topic Varicella Vaccines Aged Out No longer eligible based on patient's age to complete this topic Procedures Procedure Name Priority Date/Time Associated Diagnosis Comments ECG ANNOTATED 05/05/2025 VENOUS BLOOD GAS STAT 05/02/2025 8:22 PM EDT LACTATE, WITH REFLEX STAT 05/02/2025 8:22 PM EDT RICHARD URINE CULTURE TUBE STAT 05/02/2025 7:29 PM EDT URINALYSIS WITH REFLEX MICROSCOPIC AND CULTURE STAT 05/02/2025 7:29 PM EDT URINALYSIS WITH REFLEX MICROSCOPIC AND CULTURE STAT 05/02/2025 7:29 PM EDT CULTURE URINE STAT 05/02/2025 7:29 PM EDT TROPONIN I HIGH SENSITIVITY STAT 05/02/2025 6:28 PM EDT TROPONIN I HIGH SENSITIVITY STAT 05/02/2025 5:18 PM EDT ECG 12-LEAD STAT 05/02/2025 5:[address] ABDOMEN PELVIS W CONTRAST STAT 05/02/2025 5:03 PM EDT CBC WITH AUTO DIFFERENTIAL STAT 05/02/2025 3:06 PM EDT LIPASE STAT 05/02/2025 3:06 PM EDT MAGNESIUM STAT 05/02/2025 3:06 PM EDT COMPREHENSIVE METABOLIC PANEL STAT 05/02/2025 3:06 PM EDT CBC AND DIFFERENTIAL STAT 05/02/2025 3:06 PM EDT from Last 3 Months Results * ECG-Annotated (05/05/2025) us Provider Onbase MD ECG ORDERABLES Final Result * (ABNORMAL) Lactate, with reflex (05/02/2025 8:22 PM EDT) Pathologist [facility] LACTIC ACID 2.2(H) 0.4 - 2.0 mmol/L LAB CHEMISTRY METHOD 05/02/2025 9:02 PM EDT [facility] Blood Venous blood specimen / Unknown Venipuncture / Unknown 05/02/2025 8:22 PM EDT 05/02/2025 8:29 PM EDT [facility] LAB BLOOD ORDERABLES Final Re sult [facility] [address] [place] [address], * (ABNORMAL) Venous blood gas (05/02/2025 8:22 PM EDT) Pathologist [facility] pH, Edin 7.48(H) 7.32 - 7.42 pH 05/02/2025 8:32 PM EDT [facility] pCO2, Edin 37(L) 41 - 51 mmHg 05/02/2025 8:32 PM EDT [facility] pO2, Edin 23(L) 25 - 40 mmHg 05/02/2025 8:32 PM EDT [facility] HCO3, Venous 25.9 22.0 - 26.0 mmol/L 05/02/2025 8:32 PM EDT [facility] O2 Sat, Edin 32.4 % 05/02/2025 8:32 PM EDT [facility] Base Excess, Edin 4.1(H) -2.0 - 2.0 mmol/L 05/02/2025 8:32 PM EDT [facility] Blood Venous blood specimen / Unknown Venipuncture / Unknown 05/02/2025 8:22 PM EDT 05/02/2025 8:29 PM EDT us [facility] LAB BLOOD ORDERABLES Final Re sult [facility] [address] [place] [address], [place] [phone] * (ABNORMAL) Urinalysis with reflex microscopic and culture (05/02/2025 7:29 PM EDT) Specific Coral Urine >1.045(H) 1.003 - 1.030 LAB URINALYSIS - AUTOMATED METHOD 05/02/2025 8:14 PM EDT [facility] pH, Urine 6.0 5.0 - 8.0 pH LAB URINALYSIS - AUTOMATED METHOD 05/02/2025 8:[address] [facility] Leukocytes, Urine Moderate(A) Negative LAB URINALYSIS - AUTOMATED METHOD 05/02/2025 8:[address] [facility] Nitrite, Urine Positive(A) Negative LAB URINALYSIS - AUTOMATED METHOD 05/02/2025 8:[address] [facility] Protein, Urine 30(A) <=Trace mg/dL LAB URINALYSIS - AUTOMATED METHOD 05/02/2025 8:[address] [facility] Glucose, Urine Negative Negative mg/dL LAB URINALYSIS - AUTOMATED METHOD 05/02/2025 8:[address] [facility] Ketones, Urine 15(A) Negative mg/dL LAB URINALYSIS - AUTOMATED METHOD 05/02/2025 8:[address] [facility] Urobilinogen , Urine 0.2 0.2 - 1.0 mg/dL LAB URINALYSIS - AUTOMATED METHOD 05/02/2025 8:[address] [facility] Bilirubin, Urine Negative Negative LAB URINALYSIS - AUTOMATED METHOD 05/02/2025 8:14 PM EDT [facility] Blood, Urine Small(A) Negative LAB URINALYSIS - AUTOMATED METHOD 05/02/2025 8:14 PM EDT [facility] RBC, Urine 7.4(H) 0 - 4 /HPF LAB URINALYSIS - AUTOMATED METHOD 05/02/2025 [facility] WBC, Urine 355.8(H) 0 - 4 /HPF LAB URINALYSIS - AUTOMATED METHOD 05/02/2025 8:14 PM EDT [facility] Squamous Epithelial, Urine 52 0 - 60 /LPF LAB URINALYSIS - AUTOMATED METHOD 05/02/2025 8:14 PM EDT [facility] Bacteria, Urine Many(A) Negative /HPF LAB URINALYSIS - AUTOMATED METHOD 05/02/2025 8:[address] [facility] Hyaline Casts, Urine 2.0 0 - 3 /LPF LAB URINALYSIS - AUTOMATED METHOD 05/02/2025 8:14 PM EDT [facility] Urine Urinary bladder structure / Unknown Non-blood Collection / Unknown 05/02/2025 7:29 PM EDT 05/02/2025 7:50 PM EDT [facility] LAB URINE ORDERABLES Final Re sult [facility] [address] [place] [address], * Richard urine culture tube (05/02/2025 7:29 PM EDT) Extra Tube Hold for add-ons. 05/02/2025 9:01 PM EDT [facility] Comment:Auto resulted. Urine Urinary bladder structure / Unknown Non-blood Collection / Unknown 05/02/2025 7:29 PM EDT 05/02/2025 7:50 PM EDT [facility] LAB URINE ORDERABLES Final Re sult [facility] [address] [place] [address], [place] [phone] * (ABNORMAL) Culture urine (05/02/2025 7:29 PM EDT) Culture, Urine >100,000 CFU/mL Klebsiella pneumoniae ssp pneumoniae(A) MARIELA 05/04/2025 9:02 AM EDT [facility] Comment: This is an edited result. Previous organism was Gram negative bacilli on 05/03/2025 at 0755 EDT. Urine Urinary bladder structure / Unknown Non-blood Collection / Unknown 05/02/2025 7:29 PM EDT 05/02/2025 8:13 PM EDT Narrative Organism Antibiotic Method Susceptibility Klebsiella pneumoniae ssp pneumoniae Amoxicillin/Clavulanate MARIELA <=2 ug/ml: Susceptible Klebsiella pneumoniae ssp pneumoniae Ampicillin/Sulbactam MARIELA 4 ug/ml: Susceptible Klebsiella pneumoniae ssp pneumoniae Piperacillin/Tazobactam MARIELA <=4 ug/ml: Susceptible Klebsiella pneumoniae ssp pneumoniae Cefazolin (Urine) MARIELA 2 ug/ml: Susceptible Klebsiella pneumoniae ssp pneumoniae Cefoxitin MARIELA <=4 ug/ml: Susceptible Klebsiella pneumoniae ssp pneumoniae Ceftazidime MARIELA <=0.5 ug/ml: Susceptible Klebsiella pneumoniae ssp pneumoniae Ceftriaxone MARIELA <=0.25 ug/ml: Susceptible Klebsiella pneumoniae ssp pneumoniae Cefepime MARIELA <=0.12 ug/ml: Susceptible Klebsiella pneumoniae ssp pneumoniae Meropenem MARIELA <=0.25 ug/ml: Susceptible Klebsiella pneumoniae ssp pneumoniae Amikacin MARIELA <=1 ug/ml: Susceptible Klebsiella pneumoniae ssp pneumoniae Gentamicin MARIELA <=1 ug/ml: Susceptible Klebsiella pneumoniae ssp pneumoniae Ciprofloxacin MARIELA <=0.06 ug/ml: Susceptible Klebsiella pneumoniae ssp pneumoniae Levofloxacin MARIELA <=0.12 ug/ml: Susceptible Klebsiella pneumoniae ssp pneumoniae Nitrofurantoin MARIELA 128 ug/ml: Resistant Klebsiella pneumoniae ssp pneumoniae Trimethoprim/Sulfamethoxazo le MARIELA <=20 ug/ml: Susceptible [facility] LAB MICROBIOLOGY - GENERAL OR DERABLES Final Result Performing Organization Address [facility]/ZIP Co de Phone Number [facility] [address] [place] [address], [place] [phone] * Troponin I high sensitivity (05/02/2025 6:28 PM EDT) Only the most recent of2 resultswithin the time period is included. [facility] High Sensitivity Troponin I 30 <=54 ng/L LAB CHEMISTRY METHOD 05/02/2025 7:15 PM EDT [facility] Blood Venous blood specimen / Unknown Venipuncture / Unknown 05/02/2025 6:28 PM EDT 05/02/2025 6:43 PM EDT Narrative [facility] - 05/02/2025 7:15 PM EDT High levels of biotin in samples may falsely decrease hsTroponin values. Use caution when interpreting hsTroponin results in patients taking biotin who exhibit renal impairment (eGFR <60) or in patients taking more than 20 mg/day of biotin. [facility] LAB BLOOD ORDERABLES Final Re sult Performing Organization Address [facility]/ZIP Co de Phone Number [facility] [address] [place] [address], [place] [phone] * ECG 12 lead (05/02/2025 5:12 PM EDT) [facility] Ventricular Rate ECG 81 BPM GEMUSE Atrial Rate 81 BPM GEMUSE P-R Interval 192 ms GEMUSE QRS Duration 94 ms GEMUSE Q-T Interval 406 ms GEMUSE QTc 471 ms GEMUSE P Wave [place] 77 degrees GEMUSE R [place] 0 degrees GEMUSE T [place] 11 degrees GEMUSE ECG Interpretation Normal sinus rhythm with sinus arrhythmia Moderate voltage criteria for LVH, may be normal variant Borderline ECG When compared with ECG of 05-OCT-2024 13:38, No significant change was found Confirmed by MD Abiel, Bhupinder ([id number]) on 05/05/2025 8:34:10 AM GEMUSE 05/02/2025 5:12 PM EDT 05/05/2025 8:34 AM EDT [facility] ECG ORDERABLES Final Result GEMUSE * CT Abdomen Pelvis w Contrast (05/02/2025 5:03 PM EDT) Anatomical Region Laterality Modality Body Computed Tomogra phy 05/02/2025 6:19 PM EDT Impressions 05/02/2025 6:19 PM EDT 1. Mildly heterogeneous enhancement of the lobulated left kidney favored to represent pyelonephritis. Recommend correlation clinically. If no clinical correlate, recommend renal ultrasound or renal protocol MR to further characterize the left kidney. No definite renal mass identified. This document has been electronically signed by: Gunnar Aguila MD on 05/02/2025 18:19:03 Narrative 05/02/2025 6:19 PM EDT INDICATION: pain CT abdomen and pelvis with IV contrast. COMPARISON: None provided. FINDINGS: Minimal atelectasis along the posterior lower lobes. Small pericardial effusion. Several small hypoattenuating lesions within the liver measuring up to 0.5 cm, too small to further characterize but likely representing hepatic cysts or hemangiomas. Likely hepatic steatosis. Cholecystectomy. Normal spleen. Normal pancreas. Normal adrenal glands. No hydronephrosis. Left renal cystic lesions measuring up to 1.3 cm. Mildly decreased enhancement along the lateral aspect of the left kidney. Lobulated left renal contour. No definite renal mass. Normal appendix. Mild colonic stool burden. No bowel obstruction. No mesenteric or retroperitoneal lymphadenopathy. Mild aortoiliac atherosclerotic vascular calcifications. Normal appearance of the urinary bladder. No adnexal mass. Lobular appearance of the uterus with a small internal calcifications likely representing a fibroid uterus. Small fat containing umbilical hernia. No acute fracture or suspicious bone lesion. Procedure Note Gunnar Aguila MD - 05/02/2025 INDICATION: pain CT abdomen and pelvis with IV contrast. COMPARISON: None provided. FINDINGS: Minimal atelectasis along the posterior lower lobes. Small pericardial effusion. Several small hypoattenuating lesions within the liver measuring up to0.5 cm, too small to further characterize but likely representing hepatic cysts or hemangiomas. Likely hepatic steatosis. Cholecystectomy. Normal spleen. Normal pancreas. Normal adrenal glands. No hydronephrosis. Left renal cystic lesions measuring up to 1.3 cm. Mildly decreased enhancement along the lateral aspect of the leftkidney. Lobulated left renal contour. No definite renal mass. Normal appendix. Mild colonic stool burden. No bowel obstruction. No mesenteric or retroperitoneal lymphadenopathy. Mild aortoiliac atherosclerotic vascular calcifications. Normal appearance of the urinary bladder. No adnexal mass. Lobular appearance of the uterus with a small internal calcifications likely representing a fibroid uterus. Small fat containing umbilical hernia. No acute fracture or suspicious bone lesion. IMPRESSION: 1. Mildly heterogeneous enhancement of the lobulated left kidney favored to represent pyelonephritis. Recommend correlation clinically. If no clinical correlate, recommend renal ultrasound or renal protocol MR to further characterize the left kidney. No definite renal mass identified. This document has been electronically signed by: Gunnar Aguila MD on 05/02/2025 18:19:[address] [facility] PROCEDURES Final Resul t * (ABNORMAL) CBC auto differential (05/02/2025 3:06 PM EDT) WBC 10.5 4.8 - 10.8 K/mcL LAB HEMETOLOGY METHOD 05/02/2025 3:[facility] RBC 5.20(H) 3.80 - 4.80 M/mcL LAB HEMETOLOGY METHOD 05/02/2025 3:31 [facility] Hemoglobin 15.9 11.5 - 16.0 g/dL LAB HEMETOLOGY METHOD 05/02/2025 3:31 [facility] Hematocrit 46.2 35.0 - 47.0 % LAB HEMETOLOGY METHOD 05/02/2025 3:[address] [facility] MCV 89.7 79.0 - 98.0 FL LAB HEMETOLOGY METHOD 05/02/2025 3:[address] [facility] MCH 30.9 27.0 - 32.0 pcg LAB HEMETOLOGY METHOD 05/02/2025 3:[address] [facility] MCHC 34.4 32.0 - 37.0 g/dL LAB HEMETOLOGY METHOD 05/02/2025 3:[address] [facility] RDW 13.3 11.0 - 15.0 % LAB HEMETOLOGY METHOD 05/02/2025 3:[address] [facility] Platelets 283 130 - 400 K/mcL LAB HEMETOLOGY METHOD 05/02/2025 3:[address] [facility] MPV 10.2 7.0 - 11.0 FL LAB HEMETOLOGY METHOD 05/02/2025 3:[address] [facility] NRBC 0.0 <1.0 % LAB HEMETOLOGY METHOD 05/02/2025 3:[address] [facility] NRBC Absolute 0.00 <0.10 K/mcL LAB HEMETOLOGY METHOD 05/02/2025 3:[address] [facility] Neutrophils Relative 75.9 % LAB HEMETOLOGY METHOD 05/02/2025 3:[address] [facility] Lymphocytes Relative 14.4 % LAB HEMETOLOGY METHOD 05/02/2025 3:[address] [facility] Monocytes Relative 8.4 % LAB HEMETOLOGY METHOD 05/02/2025 3:[address] [facility] Eosinophils Relative 0.1 % LAB HEMETOLOGY METHOD 05/02/2025 3:[address] [facility] Basophils Relative 0.3 % LAB HEMETOLOGY METHOD 05/02/2025 3:[address] [facility] Immature Granulocytes Relative 0.9 % LAB HEMETOLOGY METHOD 05/02/2025 3:[address] [facility] Neutrophils Absolute 7.93(H) 1.50 - 7.00 K/mcL LAB HEMETOLOGY METHOD 05/02/2025 3:31 PM EDT [facility] Lymphocytes Absolute 1.51 1.00 - 5.00 K/mcL LAB HEMETOLOGY METHOD 05/02/2025 3:31 PM EDT [facility] Monocytes Absolute 0.88 0.20 - 1.00 K/[facility] LAB HEMETOLOGY METHOD 05/02/2025 3:31 PM EDT [facility] Eosinophils Absolute 0.01 0.00 - 0.50 K/[facility] LAB HEMETOLOGY METHOD 05/02/2025 3:31 PM EDT [facility] Basophils Absolute 0.03 0.00 - 0.20 K/[facility] LAB HEMETOLOGY METHOD 05/02/2025 3:31 PM EDT [facility] Immature Granulocytes Absolute 0.09(H) 0.00 - 0.03 K/[facility] LAB HEMETOLOGY METHOD 05/02/2025 3:31 PM EDT [facility] Blood Venous blood specimen / Unknown Venipuncture / Unknown 05/02/2025 3:06 PM EDT 05/02/2025 3:19 PM EDT us Kiarra Grey DO LAB BLOOD ORDERABLES Mar l Result [facility] [address] [place] [address], * (ABNORMAL) Magnesium (05/02/2025 3:06 PM EDT) Magnesium 1.8(L) 1.9 - 2.6 mg/dL LAB CHEMISTRY METHOD 05/02/2025 3:46 PM EDT [facility] Blood Venous blood specimen / Unknown Venipuncture / Unknown 05/02/2025 3:06 PM EDT 05/02/2025 3:19 PM EDT Kiarra Grey DO LAB BLOOD ORDERABLES Mar l Result [facility] [address] [place] [address], [place] [phone] * Lipase (05/02/2025 3:06 PM EDT) Pathologist [facility] Lipase 23 13 - 75 unit/L LAB CHEMISTRY METHOD 05/02/2025 3:46 PM EDT [facility] Blood Venous blood specimen / Unknown Venipuncture / Unknown 05/02/2025 3:06 PM EDT 05/02/2025 3:19 PM EDT Kiarra Grey LAB BLOOD ORDERABLES Mar l Result Performing Organization Address [facility]/ZIP Co de Phone Number [facility] [address] [place] [address], [place] [phone] * (ABNORMAL) Comprehensive metabolic panel (05/02/2025 3:06 PM EDT) [facility] Sodium 137 133 - 145 mmol/L LAB CHEMISTRY METHOD 05/02/2025 3:50 PM T [facility] Potassium 3.0(L) 3.5 - 5.5 mmol/L LAB CHEMISTRY METHOD 05/02/2025 3:50 PM EDT [facility] Chloride 100 96 - 110 mmol/L LAB CHEMISTRY METHOD 05/02/2025 3:50 PM EDT [facility] CO2 24 21 - 32 mmol/L LAB CHEMISTRY METHOD 05/02/2025 3:50 PM EDT [facility] Anion Gap 13(H) 3 - 11 LAB CHEMISTRY METHOD 05/02/2025 3:50 PM EDT [facility] Glucose 167(H) 70 - 100 mg/dL LAB CHEMISTRY METHOD 05/02/2025 3:50 PM T [facility] BUN 25 5 - 25 mg/dL LAB CHEMISTRY METHOD 05/02/2025 3:[address] [facility] Creatinine 1.11(H) 0.50 - 1.10 mg/dL LAB CHEMISTRY METHOD 05/02/2025 3:[address] [facility] eGFR 54(L) >=60 mL/min/1. 73m2 LAB CHEMISTRY METHOD 05/02/2025 3:[address] [facility] Comment:Calculation based on the Chronic Kidney Disease Epidemiology Collaboration (CKD-EPI) equation refit without adjustment for race. BUN/Creatinine Ratio 22.5 LAB CHEMISTRY METHOD 05/02/2025 3:[address] [facility] Calcium 9.4 8.5 - 10.5 mg/dL LAB CHEMISTRY METHOD 05/02/2025 3:[address] [facility] AST (SGOT) 13 10 - 42 unit/L LAB CHEMISTRY METHOD 05/02/2025 3:[address] [facility] ALT (SGPT) 22 10 - 60 unit/L LAB CHEMISTRY METHOD 05/02/2025 3:[address] [facility] Alkaline Phosphatase 106 42 - 121 unit/L LAB CHEMISTRY METHOD 05/02/2025 3:[address] [facility] Total Protein 6.7 6.0 - 8.0 g/dL LAB CHEMISTRY METHOD 05/02/2025 3:[address] [facility] Albumin 3.2 3.2 - 5.0 g/dL LAB CHEMISTRY METHOD 05/02/2025 3:[address] [facility] Total Bilirubin 0.9 0.0 - 1.4 mg/dL LAB CHEMISTRY METHOD 05/02/2025 3:[address] [facility] Blood Venous blood specimen / Unknown Venipuncture / Unknown 05/02/2025 3:06 PM EDT 05/02/2025 3:19 PM EDT us Kiarra Grey DO LAB BLOOD ORDERABLES Mar l [facility] [address] [place] [address], from Last 3 Months Insurance MEDICARE Advance Directives * Full Code [...] currently active code status orders. Care Teams Tappet Adjuster Relationship Specialty Start Date End Date Pepe Murrieta MD [address] [place] [id number] PCP - General 09/27/16
== END 2025-06-04 10:24 | disposition home or self-care (01) ==
LOC: HO.HMCC 08:57
PROVIDERS: PCP Internal Medicine; Visit Provider Internal Medicine
DX: I10 Essential (primary) hypertension (principal); M85.80 Other specified disorders of bone density and structure, unspecified site; K58.2 Mixed irritable bowel syndrome; J43.8 Other emphysema; K21.9 Gastro-esophageal reflux disease without esophagitis; F17.210 Nicotine dependence, cigarettes, uncomplicated

== ENCOUNTER 2025-06-04 08:56 | Outpatient (REF) | payer MEDICARE, SELFPAY ==
[2025-06-04 11:11] LABS: MANUAL DIFF FLAG NO
[2025-06-04 11:32] LABS: Hematocrit 42.7 % (37.0-47.0); Hemoglobin 14.4 g/dl (12.0-16.0); Imm Gran Abs Auto 0.06 X10*3/uL (0.00-0.03); Imm Gran Pct Auto 0.6 % (0.0-0.4); Lymphocytes Absolute Auto 3.2 X10*3/uL (1.2-4.9); Mean Corpuscular HGB Conc 33.7 g/dl (31.0-35.0); Mean Corpuscular Hemoglobin 31.0 pg (27.0-33.0); Mean Corpuscular Volume 91.8 fL (80.0-98.0); NRBC Abs Auto 0.000 X10*3/uL (0.0-0.012); NRBC Pct Auto 0.0 /100WBC (0.0-0.2); Platelet Count 374 X10*3/uL (160-400); Red Blood Count 4.65 X10*6/uL (4.20-5.50); White Blood Count 9.8 X10*3/uL (4.8-10.8)
[2025-06-04 12:21] LABS: Alanine Aminotransferase 13 U/L (0-31); Albumin Level 4.2 g/dL (3.5-5.0); Alkaline Phosphatase 92 U/L (39-117); Anion Gap 13 (12-20); Aspartate Amino Transferase 17 U/L (5-31); Blood Urea Nitrogen 12 mg/dL (9-16); Calcium 9.5 mg/dL (8.4-10.2); Carbon Dioxide 27 mmol/L (22-29); Chloride 108 mmol/L (96-108); Estimated Glomerular Filt Rate > 60; Potassium 3.9 mmol/L (3.3-5.1); Sodium 144 mmol/L (135-145); Total Protein 6.8 g/dL (6.5-8.0)
[2025-06-04 12:43] LABS: Vitamin B12 399 pg/mL (200-900)
[2025-06-08 12:57] LABS: Vitamin D 25-OH, D2 <4 ng/mL; Vitamin D 25-OH, D3 32 ng/mL; Vitamin D 25-OH, Total 32 ng/mL (30-100)
== END 2025-06-04 08:57 | disposition home or self-care (01) ==
LOC: HO.HMGCLDS 08:56
PROVIDERS: PCP Internal Medicine; Visit Provider Internal Medicine
DX: I10 Essential (primary) hypertension (principal); M85.80 Other specified disorders of bone density and structure, unspecified site; K21.9 Gastro-esophageal reflux disease without esophagitis; J43.8 Other emphysema; F17.210 Nicotine dependence, cigarettes, uncomplicated; Z71.6 Tobacco abuse counseling
CPT/HCPCS: 36415; 80053; 82306; 82607; 84443; 85025; 99212

== ENCOUNTER 2025-07-09 10:15 | Outpatient (REF) | payer MEDICARE, SELFPAY ==
--- NOTE | ~2025-07-09 | XR_ITS ---
EXAMINATION: XR TIBIA FIBULA 2 VIEWS LEFT HISTORY: S81.809A - Unspecified open wound, unspecified lower leg, initial encounter COMPARISON: There are no prior studies available for comparison. FINDINGS: AP and lateral views of the left tibia and fibula are submitted. Osseous mineralization is normal. There is no fracture or dislocation. The visualized knee and ankle joint spaces are preserved. The soft tissues are unremarkable. XR/XR tibia fibula LT 2V IMPRESSION: Unremarkable examination of the left tibia and fibula. Electronically signed by: Vinnie Huston MD 07/09/2025 11:34 AM EDT
--- OUTSIDE RECORDS SUMMARY | 2025-07-09 14:25 | XMS_ITS | Clinical Summary ---
Author Organization Patient Business Ser [facility] Agency Address [address] [place] [address] Care Team Providers Care Orange Picking Supervisor Name Role Phone Pepe Murrieta MD Primary Care Provider [phone] Allergies Active Allergy Reactions Criticality Noted Date [...] Encounters Date Type Department Care Team Description 07/02/2025 12:17 PM EDT - 07/02/2025 6:52 PM EDT Emergency [facility] Emergency [address] [place] [address] Aranza Gant MD Nausea and vomiting, unspecified vomiting type (Primary Dx); Hypokalemia Discharge Disposition: Home or Self Care 05/02/2025 2:40 PM EDT - 05/02/2025 11:17 PM EDT Emergency [facility] Emergency [address] [place] [address] Kiarra GreynyDO Nausea and vomiting, unspecified vomiting type (Primary Dx); Pyelonephritis Discharge Disposition: Home or Self Care from Last 3 Months Surgical History Surgery Date Site/Laterality Comments CHOLECYSTECTOMY PROCEDURE: [place] LAPAROSCOPY SURG CHOLECYSTECTOMY Medical History Medical History [...] Sign Reading Time Taken Comments Blood Pressure 128/82 07/02/2025 6:53 PM EDT Pulse 84 07/02/2025 6:53 PM EDT Temperature 36.9 C (98.4 F) 07/02/2025 6:53 PM EDT Respiratory Rate 18 07/02/2025 6:53 PM EDT Oxygen Saturation 100% 07/02/2025 6:53 PM EDT Inhaled Oxygen Concentration - - Weight 70.3 kg (155 lb) 07/02/2025 12:27 PM EDT Height 165 cm (5' 4.96 ) 07/02/2025 12:27 PM EDT Body Mass Index 25.82 07/02/2025 12:27 PM EDT Plan of Treatment Health Maintenance [...] 07/01/2022 Social Influencers of Health Screening 07/01/2022 Depression Screening 10/30/2024 COVID-19 Vaccine ( season) 2025 03/03/2021, 02/04/2021 Influenza Vaccine (#1) 2025 , 08/20/2023, 10/08/2022, Additional history exists Falls Risk Assessment 05/02/2026 05/02/2025 Hypertension/CHF/CAD Annual BMP Blood Test 07/02/2026 07/02/2025, 05/02/2025, 10/06/2024, Additional history exists RSV Immunization Adult Patients (1 - 1-dose [...] Priority Date/Time Associated Diagnosis Comments ECG ANNOTATED 07/03/2025 COMPLETE BLOOD COUNT STAT 07/02/2025 4:46 PM EDT URINALYSIS WITH REFLEX MICROSCOPIC STAT 07/02/2025 2:19 PM EDT URINALYSIS WITH REFLEX MICROSCOPIC STAT 07/02/2025 2:19 PM EDT XR CHEST 1 VIEW STAT 07/02/2025 12:46 PM EDT CBC WITH AUTO DIFFERENTIAL STAT 07/02/2025 12:45 PM EDT B-TYPE NATRIURETIC PEPTIDE STAT 07/02/2025 12:45 PM EDT MAGNESIUM STAT 07/02/2025 12:45 PM EDT LIPASE STAT 07/02/2025 12:45 PM EDT COMPREHENSIVE METABOLIC PANEL STAT 07/02/2025 12:45 PM EDT CBC AND DIFFERENTIAL STAT 07/02/2025 12:45 PM EDT TROPONIN I HIGH SENSITIVITY Timed 07/02/2025 12:45 PM EDT ECG 12-LEAD STAT 07/02/2025 12:39 PM EDT ECG ANNOTATED 05/05/2025 VENOUS BLOOD GAS STAT [...] from Last 3 Months Results * ECG-Annotated (07/03/2025) Only the most recent of2 resultswithin the time period is included. us Provider Onbase MD ECG ORDERABLES Final Result * (ABNORMAL) CBC (07/02/2025 4:46 PM EDT) WBC 14.7(H) 4.8 - 10.8 K/mcL LAB HEMETOLOGY METHOD 07/02/2025 5:56 PM EDT [facility] RBC 5.00(H) 3.80 - 4.80 M/mcL LAB HEMETOLOGY METHOD 07/02/2025 5:56 PM EDT [facility] Hemoglobin 15.1 11.5 - 16.0 g/dL LAB HEMETOLOGY METHOD 07/02/2025 5:56 PM EDT [facility] Hematocrit 44.0 35.0 - 47.0 % LAB HEMETOLOGY METHOD 07/02/2025 5:56 PM EDT [facility] MCV 88.9 79.0 - 98.0 FL LAB HEMETOLOGY METHOD 07/02/2025 5:56 PM EDT [facility] MCH 30.5 27.0 - 32.0 pcg LAB HEMETOLOGY METHOD 07/02/2025 5:56 PM EDT [facility] MCHC 34.3 32.0 - 37.0 g/dL LAB HEMETOLOGY METHOD 07/02/2025 5:56 PM EDT [facility] RDW 14.4 11.0 - 15.0 % LAB HEMETOLOGY METHOD 07/02/2025 5:56 PM EDT [facility] Platelets 335 130 - 400 K/mcL LAB HEMETOLOGY METHOD 07/02/2025 5:56 PM EDT [facility] MPV 11.1(H) 7.0 - 11.0 FL LAB HEMETOLOGY METHOD 07/02/2025 5:56 PM EDT [facility] NRBC 0.0 <1.0 % LAB HEMETOLOGY METHOD 07/02/2025 5:56 PM EDT [facility] NRBC Absolute 0.00 <0.10 K/mcL LAB HEMETOLOGY METHOD 07/02/2025 5:56 PM EDT [facility] Blood Venous blood specimen / Unknown Venipuncture / Unknown 07/02/2025 4:46 PM EDT 07/02/2025 5:25 PM EDT us Aranza Gant MD LAB BLOOD ORDERABLES Final Res ult [facility] [address] [place] [address], * (ABNORMAL) Urinalysis with reflex microscopic (07/02/2025 2:19 PM EDT) Specific [place] Urine 1.025 1.003 - 1.030 LAB URINALYSIS - AUTOMATED METHOD 07/02/2025 3:11 PM [facility] pH, Urine 6.0 5.0 - 8.0 pH LAB URINALYSIS - AUTOMATED METHOD 07/02/2025 3:11 PM [facility] Leukocytes, Urine Negative Negative LAB URINALYSIS - AUTOMATED METHOD 07/02/2025 3:11 PM [facility] Nitrite, Urine Negative Negative LAB URINALYSIS - AUTOMATED METHOD 07/02/2025 3:11 PM [facility] Protein, Urine 30(A) <=Trace mg/dL LAB URINALYSIS - AUTOMATED METHOD 07/02/2025 3:11 PM [facility] Glucose, Urine 500(A) Negative mg/dL LAB URINALYSIS - AUTOMATED METHOD 07/02/2025 3:11 PM [facility] Ketones, Urine 15(A) Negative mg/dL LAB URINALYSIS - AUTOMATED METHOD 07/02/2025 3:11 PM [facility] Urobilinogen, Urine 0.2 0.2 - 1.0 mg/dL LAB URINALYSIS - AUTOMATED METHOD 07/02/2025 3:11 PM [facility] Bilirubin, Urine Negative Negative LAB URINALYSIS - AUTOMATED METHOD 07/02/2025 3:11 PM [facility] Blood, Urine Negative Negative LAB URINALYSIS - AUTOMATED METHOD 07/02/2025 3:11 PM [facility] RBC, Urine 1.6 0 - 4 /HPF LAB URINALYSIS - AUTOMATED METHOD 07/02/2025 3:11 PM [facility] WBC, Urine 6.1(H) 0 - 4 /HPF LAB URINALYSIS - AUTOMATED METHOD 07/02/2025 3:11 PM EDT [facility] Squamous Epithelial, Urine >100(H) 0 - 60 /LPF LAB URINALYSIS - AUTOMATED METHOD 07/02/2025 3:11 PM EDT [facility] Bacteria, Urine Few(A) Negative /HPF LAB URINALYSIS - AUTOMATED METHOD 07/02/2025 3:11 PM EDT [facility] Hyaline Casts, Urine 3.0 0 - 3 /LPF LAB URINALYSIS - AUTOMATED METHOD 07/02/2025 3:11 PM EDT [facility] Urine Urine specimen obtained by clean catch procedure / Unknown Non-blood Collection / Unknown 07/02/2025 2:19 PM EDT 07/02/2025 2:39 PM EDT us Aranza Gant MD LAB URINE ORDERABLES Final Res ult [facility] [address] [place] [address], [place] [phone] * XR Chest 1 View (07/02/2025 12:46 PM EDT) Anatomical Region Laterality Modality Body Radiographic Lashay ging 07/02/2025 12:5 6 PM EDT Impressions 07/02/2025 12:57 PM EDT No evidence of active pulmonary disease. No significant change from the prior study. -------- FINAL REPORT -------- Dictated By: Vasquez Whitman Dictated Date: 07/02/2025 12:56 ET Assigned Physician: Vasquez Whitman Reviewed and Electronically Signed By: Vasquez Whitman Signed Date: 07/02/2025 12:57 ET Workstation ID: [id number] Transcribed By: Self Edit Transcribed Date: 07/02/2025 12:56 ET Narrative 07/02/2025 12:57 PM EDT INDICATION: Chest pain FINDINGS: Single portable AP view of the chest obtained. Compared to multiple prior studies most recent from October 05, 2024 Lung lloyd are clear. Heart normal in size and shape. Bony structures are grossly intact and normal for the patient's age. Procedure Note Vasquez Whitman MD - 07/02/2025 INDICATION: Chest pain FINDINGS: Single portable AP view of the chest obtained. Compared tomultiple prior studies most recent from October 05, 2024 Lung lloyd are clear. Heart normal in size and shape. Bony structures are grossly intact and normal for the patient's age. IMPRESSION: No evidence of active pulmonary disease. No significant change from theprior study. -------- FINAL REPORT -------- Dictated By: Vasquez Whitman Dictated Date: 07/02/2025 12:56 ET Assigned Physician: Vasquez Whitman Reviewed and Electronically Signed By: Vasquez Whitman Signed Date: 07/02/2025 12:57 ET Workstation ID: [id number] Transcribed By: Self Edit Transcribed Date: 07/02/2025 12:56 ET us Jodie Healy DO IMG XR PROCEDURES Final Resul t * Troponin I high sensitivity (07/02/2025 12:45 PM EDT) Only the most recent of3 resultswithin the time period is included. High Sensitivity Troponin I 9 <=54 ng/L LAB CHEMISTRY METHOD 07/02/2025 2:31 PM EDT [facility] Blood Venous blood specimen / Unknown Venipuncture / Unknown 07/02/2025 12:45 PM EDT 07/02/2025 1:52 PM EDT Narrative [facility] - 07/02/2025 2:31 PM EDT High levels of biotin in samples may falsely decrease hsTroponin values. Use caution when interpreting hsTroponin results in patients taking biotin who exhibit renal impairment (eGFR <60) or in patients taking more than 20 mg/day of biotin. us Jodie Healy DO LAB BLOOD ORDERABLES Final Re sult [facility] [address] [place] [address], * (ABNORMAL) CBC auto differential (07/02/2025 12:45 PM EDT) Only the most recent of2 resultswithin the time period is included. [facility] Signature WBC 16.5(H) 4.8 - 10.8 K/mcL LAB HEMETOLOGY METHOD 07/02/2025 2:01 PM EDT [facility] RBC 4.80 3.80 - 4.80 M/mcL LAB HEMETOLOGY METHOD 07/02/2025 2:01 PM EDT [facility] Hemoglobin 14.6 11.5 - 16.0 g/dL LAB HEMETOLOGY METHOD 07/02/2025 2:01 PM EDT [facility] Hematocrit 42.9 35.0 - 47.0 % LAB HEMETOLOGY METHOD 07/02/2025 2:01 PM EDT [facility] MCV 89.0 79.0 - 98.0 FL LAB HEMETOLOGY METHOD 07/02/2025 2:01 PM EDT [facility] MCH 30.3 27.0 - 32.0 pcg LAB HEMETOLOGY METHOD [facility]/02[facility]25 [facility] MCHC 34.0 32.0 - 37.0 g/dL LAB HEMETOLOGY METHOD 07/02/2025 2:01 PM EDT [facility] RDW 14.3 11.0 - 15.0 % LAB HEMETOLOGY METHOD 07/02/2025 2:01 PM EDT [facility] Platelets 357 130 - 400 K/mcL LAB HEMETOLOGY METHOD 07/02/2025 2:01 PM EDT [facility] MPV 11.1(H) 7.0 - 11.0 FL LAB HEMETOLOGY METHOD 07/02/2025 2:01 PM EDT [facility] NRBC 0.0 <1.0 % LAB HEMETOLOGY METHOD 07/02/2025 2:01 PM [facility] NRBC Absolute 0.00 <0.10 K/mcL LAB HEMETOLOGY METHOD 07/02/2025 2:01 PM [facility] Neutrophils Relative 76.8 % LAB HEMETOLOGY METHOD 07/02/2025 2:01 PM [facility] Lymphocytes Relative 15.1 % LAB HEMETOLOGY METHOD 07/02/2025 2:01 PM [facility] Monocytes Relative 6.7 % LAB HEMETOLOGY METHOD 07/02/2025 2:01 PM [facility] Eosinophils Relative 0.2 % LAB HEMETOLOGY METHOD 07/02/2025 2:01 PM [facility] Basophils Relative 0.2 % LAB HEMETOLOGY METHOD 07/02/2025 2:01 PM [facility] Immature Granulocytes Relative 1.0 % LAB HEMETOLOGY METHOD 07/02/2025 2:01 PM [facility] Neutrophils Absolute 12.66(H) 1.50 - 7.00 K/mcL LAB HEMETOLOGY METHOD 07/02/2025 2:01 PM [facility] Lymphocytes Absolute 2.50 1.00 - 5.00 K/mcL LAB HEMETOLOGY METHOD 07/02/2025 2:01 PM [facility] Monocytes Absolute 1.11(H) 0.20 - 1.00 K/mcL LAB HEMETOLOGY METHOD 07/02/2025 2:01 PM [facility] Eosinophils Absolute 0.04 0.00 - 0.50 K/mcL LAB HEMETOLOGY METHOD 07/02/2025 2:01 PM [facility] Basophils Absolute 0.04 0.00 - 0.20 K/mcL LAB HEMETOLOGY METHOD 07/02/2025 2:01 PM EDT [facility] Immature Granulocytes Absolute 0.17(H) 0.00 - 0.03 K/mcL LAB HEMETOLOGY METHOD 07/02/2025 2:01 PM EDT [facility] Blood Venous blood specimen / Unknown Venipuncture / Unknown 07/02/2025 12:45 PM EDT 07/02/2025 1:52 PM EDT [facility] BLOOD ORDERABLES Final Re sult Performing Organization Address [facility]/ZIP Co de Phone Number [facility] [address] [place] [address], [place] [phone] * (ABNORMAL) B-type natriuretic peptide (07/02/2025 12:45 PM EDT) BNP 250(H) <=100 pcg/mL LAB CHEMISTRY METHOD 07/02/2025 2:33 PM EDT [facility] Blood Venous blood specimen / Unknown Venipuncture / Unknown 07/02/2025 12:45 PM EDT 07/02/2025 1:52 PM EDT [facility] BLOOD ORDERABLES Final Re sult Performing Organization Address [facility]/ZIP Co de Phone Number [facility] [address] [place] [address], [place] [phone] * (ABNORMAL) Magnesium (07/02/2025 12:45 PM EDT) Only the most recent of2 resultswithin the time period is included. Magnesium 1.8(L) 1.9 - 2.6 mg/dL LAB CHEMISTRY METHOD 07/02/2025 2:48 PM EDT [facility] Blood Venous blood specimen / Unknown Venipuncture / Unknown 07/02/2025 12:45 PM EDT 07/02/2025 1:52 PM EDT [facility] LAB BLOOD ORDERABLES Final Re sult Performing Organization Address [facility]/ZIP Co de Phone Number [facility] [address] [place] [address], [place] [phone] * (ABNORMAL) Lipase (07/02/2025 12:45 PM EDT) Only the most recent of2 resultswithin the time period is included. Pathologist [facility] Lipase 12(L) 13 - 75 unit/L LAB CHEMISTRY METHOD 07/02/2025 2:48 PM EDT [facility] Blood Venous blood specimen / Unknown Venipuncture / Unknown 07/02/2025 12:45 PM EDT 07/02/2025 1:52 PM EDT [facility] BLOOD ORDERABLES Final Re sult Performing Organization Address [email or web address]] de Phone Number [facility] [address] [place] [address], [place] [phone] * (ABNORMAL) Comprehensive metabolic panel (07/02/2025 12:45 PM EDT) Only the most recent of2 resultswithin the time period is included. [facility] Sodium 141 133 - 145 mmol/L LAB CHEMISTRY METHOD 07/02/2025 2:56 PM EDT [facility] Potassium 3.0(L) 3.5 - 5.5 mmol/L LAB CHEMISTRY METHOD 07/02/2025 2:56 PM EDT [facility] Chloride 109 96 - 110 mmol/L LAB CHEMISTRY METHOD 07/02/2025 2:56 PM EDT [facility] CO2 19(L) 21 - 32 mmol/L LAB CHEMISTRY METHOD 07/02/2025 2:56 PM EDT [facility] Anion Gap 13(H) 3 - 11 LAB CHEMISTRY METHOD 07/02/2025 2:56 PM EDT [facility] Glucose 232(H) 70 - 100 mg/dL LAB CHEMISTRY METHOD 07/02/2025 2:56 PM [facility] BUN 11 5 - 25 mg/dL LAB CHEMISTRY METHOD 07/02/2025 2:56 PM [facility] Creatinine 0.83 0.50 - 1.10 mg/dL LAB CHEMISTRY METHOD 07/02/2025 2:56 PM [facility] eGFR 76 >=60 mL/min/1. 73m2 LAB CHEMISTRY METHOD 07/02/2025 2:56 PM [facility] Comment:Calculation based on the Chronic Kidney Disease Epidemiology Collaboration (CKD-EPI) equation refit without adjustment for race. BUN/Creatinine Ratio 13.3 LAB CHEMISTRY METHOD 07/02/2025 2:56 PM [facility] Calcium 9.8 8.5 - 10.5 mg/dL LAB CHEMISTRY METHOD 07/02/2025 2:56 PM [facility] AST (SGOT) 19 10 - 42 unit/L LAB CHEMISTRY METHOD 07/02/2025 2:56 PM [facility] ALT (SGPT) 12 10 - 60 unit/L LAB CHEMISTRY METHOD 07/02/2025 2:56 PM [facility] Alkaline Phosphatase 114 42 - 121 unit/L LAB CHEMISTRY METHOD 07/02/2025 2:56 PM [facility] Total Protein 6.7 6.0 - 8.0 g/dL LAB CHEMISTRY METHOD 07/02/2025 2:56 PM [facility] Albumin 3.9 3.2 - 5.0 g/dL LAB CHEMISTRY METHOD 07/02/2025 2:56 PM [facility] Total Bilirubin 0.8 0.0 - 1.4 mg/dL LAB CHEMISTRY METHOD 07/02/2025 2:56 PM [facility] Blood Venous blood specimen / Unknown Venipuncture / Unknown 07/02/2025 12:45 PM EDT 07/02/2025 1:52 PM EDT Jodie Healy LAB BLOOD ORDERABLES Final Re sult Performing Organization Address [facility]/ZIP Co de Phone Number [facility] [address] [place] [address], [place] [phone] * ECG 12 lead (07/02/2025 12:39 PM EDT) Only the most recent of2 resultswithin the time period is included. Ventricular Rate ECG 94 BPM GEMUSE Atrial Rate 94 BPM GEMUSE P-R Interval 194 ms GEMUSE QRS Duration 96 ms GEMUSE Q-T Interval 366 ms GEMUSE QTc 457 ms GEMUSE P Wave Switchback 50 degrees GEMUSE R Switchback 9 degrees GEMUSE T Switchback 31 degrees GEMUSE ECG Interpretation Sinus rhythm with marked sinus arrhythmia Nonspecific ST abnormality Abnormal ECG When compared with ECG of 02-MAY-2025 17:12, No significant change was found Confirmed by AMADOR QUINTANILLA ([id number]) on 07/03/2025 11:45:16 AM GEMUSE 07/02/2025 12:3 9 PM EDT 07/03/2025 11:45 AM EDT Jodie Healy ECG ORDERABLES Final Result Performing Organization Address [facility] Co de Phone Number GEMUSE * (ABNORMAL) Lactate, with reflex (05/02/2025 8:22 PM EDT) Pathologist [facility] LACTIC ACID 2.2(H) 0.4 - 2.0 mmol/L LAB CHEMISTRY METHOD 05/02/2025 9:02 PM EDT [facility] Blood Venous blood specimen / Unknown Venipuncture / Unknown 05/02/2025 8:22 PM EDT 05/02/2025 8:29 PM EDT [facility] BLOOD ORDERABLES Final Re sult Performing Organization Address [facility]/ZIP Co de Phone Number [facility] [address] [place] [address], [place] [phone] * (ABNORMAL) Venous blood gas (05/02/2025 8:22 PM EDT) pH, Edin 7.48(H) 7.32 - 7.42 pH 05/02/2025 8:32 PM EDT [facility] pCO2, Edin 37(L) 41 - 51 mmHg 05/02/2025 8:32 PM EDT [facility] pO2, Edin 23(L) 25 - 40 mmHg 05/02/2025 8:32 PM EDT [facility] HCO3, Venous 25.9 22.0 - 26.0 mmol/L 05/02/2025 8:32 PM EDT [facility] O2 Sat, Edin 32.4 % 05/02/2025 8:32 PM EDT [facility] Base Excess, Edin 4.1(H) -2.0 - 2.0 mmol/L 05/02/2025 8:32 PM EDT [facility] Blood Venous blood specimen / Unknown Venipuncture / Unknown 05/02/2025 8:22 PM EDT 05/02/2025 8:29 PM EDT [facility] BLOOD ORDERABLES Final Re sult [facility] [address] [place] [address], [place] [phone] * (ABNORMAL) Urinalysis with reflex microscopic and culture (05/02/2025 7:29 PM EDT) [facility] Specific [place] Urine >1.045(H) 1.003 - 1.030 LAB URINALYSIS - AUTOMATED METHOD 05/02/2025 8:14 PM EDT [facility] pH, Urine 6.0 5.0 - 8.0 pH LAB URINALYSIS - AUTOMATED METHOD 05/02/2025 8:14 PM [facility] Leukocytes, Urine Moderate(A) Negative LAB URINALYSIS - AUTOMATED METHOD 05/02/2025 8:14 PM [facility] Nitrite, Urine Positive(A) Negative LAB URINALYSIS - AUTOMATED METHOD 05/02/2025 8:14 PM [facility] Protein, Urine 30(A) <=Trace mg/dL LAB URINALYSIS - AUTOMATED METHOD 05/02/2025 8:14 PM [facility] Glucose, Urine Negative Negative mg/dL LAB URINALYSIS - AUTOMATED METHOD 05/02/2025 8:14 PM [facility] Ketones, Urine 15(A) Negative mg/dL LAB URINALYSIS - AUTOMATED METHOD 05/02/2025 8:14 PM [facility] Urobilinogen , Urine 0.2 0.2 - 1.0 mg/dL LAB URINALYSIS - AUTOMATED METHOD 05/02/2025 8:14 PM [facility] Bilirubin, Urine Negative Negative LAB URINALYSIS - AUTOMATED METHOD 05/02/2025 8:14 PM [facility] Blood, Urine Small(A) Negative LAB URINALYSIS - AUTOMATED METHOD 05/02/2025 8:14 PM [facility] RBC, Urine 7.4(H) 0 - 4 /HPF LAB URINALYSIS - AUTOMATED METHOD 05/02/2025 8:14 PM [facility] WBC, Urine 355.8(H) 0 - 4 /HPF LAB URINALYSIS - AUTOMATED METHOD 05/02/2025 8:14 PM [facility] Squamous Epithelial, Urine 52 0 - 60 /LPF LAB URINALYSIS - AUTOMATED METHOD 05/02/2025 8:14 PM [facility] Bacteria, Urine Many(A) Negative /HPF LAB URINALYSIS - AUTOMATED METHOD 05/02/2025 8:14 PM EDT [facility] Hyaline Casts, Urine 2.0 0 - 3 /LPF LAB URINALYSIS - AUTOMATED METHOD 05/02/2025 8:14 PM EDT [facility] Urine Urinary bladder structure / Unknown Non-blood Collection / Unknown 05/02/2025 7:29 PM EDT 05/02/2025 7:50 PM EDT [facility] URINE ORDERABLES Final Re sult [facility] [address] [place] [address], [place] [phone] * Richard urine culture tube (05/02/2025 7:29 PM EDT) Extra Tube Hold for add-ons. 05/02/2025 9:01 PM EDT [facility] Comment:Auto resulted. Urine Urinary bladder structure / Unknown Non-blood Collection / Unknown 05/02/2025 7:29 PM EDT 05/02/2025 7:50 PM EDT [facility] URINE ORDERABLES Final Re sult [facility] [address] [place] [address], [place] [phone] * (ABNORMAL) Culture urine (05/02/2025 7:29 PM EDT) Culture, Urine >100,000 CFU/mL Klebsiella pneumoniae ssp pneumoniae(A) MARIELA 05/04/2025 9:02 AM EDT [facility] Comment: This is an edited [...] MICROBIOLOGY - GENERAL OR DERABLES Final Result [facility] ([facility]) [facility] [address] [place] [address], [place] [phone] * CT Abdomen Pelvis w Contrast (05/02/2025 [...] Aguila MD on 05/02/2025 18:19:[address] [facility] [address] PROCEDURES Final Resul t from Last 3 Months Insurance MEDICARE Advance [...] currently active code status orders. Care Teams Orange Picking Supervisor Relationship Specialty Start Date End Date Pepe Murrieta MD [address] [place] [address] PCP - General 09/27/16
== END 2025-07-09 10:16 | disposition home or self-care (01) ==
LOC: HO.HMGCX 10:15
PROVIDERS: PCP Internal Medicine; Visit Provider Physician Assistant
DX: S81.802A Unspecified open wound, left lower leg, initial encounter (principal); L03.116 Cellulitis of left lower limb; W10.8XXA Fall (on) (from) other stairs and steps, initial encounter
CPT/HCPCS: 73590; 99212

== ENCOUNTER 2025-07-09 10:15 | Outpatient (AMB) | payer MEDICARE, SELFPAY ==
[2025-07-09 10:57] VITALS: BP 118/80; PULSE 59; TEMP 36.6; O2SAT 95; BMI 26.0
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
== END 2025-07-09 11:35 | disposition home or self-care (01) ==
PROVIDERS: PCP Internal Medicine; Visit Provider Physician Assistant
DX: S81.802A Unspecified open wound, left lower leg, initial encounter (principal); L03.116 Cellulitis of left lower limb

== ENCOUNTER → 2025-07-09 11:19 | Outpatient (BNV) | payer MEDICARE, SELFPAY | PROVIDERS: PCP Internal Medicine; Visit Provider Radiology Diagnostic Radiology | DX: S81.802A Unspecified open wound, left lower leg, initial encounter (principal) | CPT/HCPCS: 73590 ==

== ENCOUNTER 2025-07-23 09:42 | Outpatient (REF) | payer MEDICARE, SELFPAY ==
--- NOTE | ~2025-07-23 | CT_ITS ---
CLINICAL HISTORY: F17.210 - Nicotine dependence, cigarettes, uncomplicated CT lung cancer screening (LDCT) Comparison: CT/[place]/SR - CT LUNG SCREENING - 06/07/24 14:[address]/[place]/SR - CT LUNG SCREENING - 07/22/22 13:56 EDT Technique: Axial CT images of the chest using low-dose technique. Referring provider counseled the patient on shared decision-making for LDCT screening. Additional counseling was provided on smoking cessation. Effective radiation dose total: DLP 32.1 mGycm, CTDIvol 0.9 mGy. Findings: Lung: Mild emphysema. Stable 3.7 mm nodule of the right upper lobe series 4, image 76. Coronary artery calcifications: Moderate Limited upper abdomen: Unremarkable Other: Small pericardial effusion IMPRESSION: LungRADS 2 - Benign Appearance: Continue annual screening with low dose Chest CT in 12 months. ##L2## This document has been electronically signed by: Mathew Rice MD on 07/23/2025 15:32:47
--- OUTSIDE RECORDS SUMMARY | 2025-07-23 11:47 | XMS_ITS | Clinical Summary ---
Author Organization Patient Business Ser [facility] [place] Address [address] [place] [address] Care Team Providers Care Fixed Interest Dealer Name Role Phone Pepe Murrieta MD Primary Care Provider [phone] Allergies Active Allergy Reactions Criticality Noted Date [...] EDT - 07/02/2025 6:52 PM EDT Emergency [facility] Emergency [address] [place] [address] Aranza Gant MD Nausea and vomiting, unspecified vomiting type (Primary Dx); Hypokalemia Discharge Disposition: Home or Self Care 05/02/2025 2:40 PM EDT - 05/02/2025 11:17 PM EDT Emergency [facility] Emergency [address] [place] [address] Kiarra GreynyDO Nausea and vomiting, unspecified vomiting type (Primary Dx); Pyelonephritis Discharge Disposition: Home or Self Care from Last 3 Months Surgical History Surgery Date Site/Laterality Comments CHOLECYSTECTOMY PROCEDURE: [place] LAPAROSCOPY SURG CHOLECYSTECTOMY Medical History Medical History [...] LAB HEMETOLOGY METHOD 07/02/2025 5:56 PM EDT [facility] RBC 5.00(H) 3.80 - 4.80 M/mcL LAB HEMETOLOGY METHOD 07/02/2025 5:56 PM EDT [facility] Hemoglobin 15.1 11.5 - 16.0 g/dL LAB HEMETOLOGY METHOD 07/02/2025 5:56 PM EDT [facility] Hematocrit 44.0 35.0 - 47.0 % LAB HEMETOLOGY METHOD 07/02/2025 5:56 PM EDT [facility] MCV 88.9 79.0 - 98.0 FL LAB HEMETOLOGY METHOD 07/02/2025 5:56 PM EDT [facility] MCH 30.5 27.0 - 32.0 pcg LAB HEMETOLOGY METHOD 07/02/2025 5:56 PM EDT [facility] MCHC 34.3 32.0 - 37.0 g/dL LAB HEMETOLOGY METHOD 07/02/2025 5:56 PM EDT [facility] RDW 14.4 11.0 - 15.0 % LAB HEMETOLOGY METHOD 07/02/2025 5:56 PM EDT [facility] Platelets 335 130 - 400 K/mcL LAB HEMETOLOGY METHOD 07/02/2025 5:56 PM EDT [facility] MPV 11.1(H) 7.0 - 11.0 FL LAB HEMETOLOGY METHOD 07/02/2025 5:56 PM EDT [facility] NRBC 0.0 <1.0 % LAB HEMETOLOGY METHOD 07/02/2025 5:56 PM EDT [facility] NRBC Absolute 0.00 <0.10 K/mcL LAB HEMETOLOGY METHOD 07/02/2025 5:56 PM EDT [facility] Blood Venous blood specimen / Unknown Venipuncture / Unknown 07/02/2025 4:46 PM EDT 07/02/2025 5:25 PM EDT us Aranza Gant MD LAB BLOOD ORDERABLES Final Res ult [facility] [address] [place] [address], * (ABNORMAL) Urinalysis with reflex microscopic (07/02/2025 2:19 PM EDT) Specific Reading Urine 1.025 1.003 - 1.030 LAB URINALYSIS - AUTOMATED METHOD 07/02/2025 3:11 PM [facility] pH, Urine 6.0 5.0 - 8.0 pH LAB URINALYSIS - AUTOMATED METHOD 07/02/2025 3:11 PM [facility] Leukocytes, Urine Negative Negative LAB URINALYSIS - AUTOMATED METHOD 07/02/2025 3:11 PM [facility] Nitrite, Urine Negative Negative LAB URINALYSIS - AUTOMATED METHOD 07/02/2025 3:11 PM [facility] Protein, Urine 30(A) <=Trace mg/dL LAB URINALYSIS - AUTOMATED METHOD 07/02/2025 3:11 PM [facility] Glucose, Urine 500(A) Negative mg/dL LAB URINALYSIS - AUTOMATED METHOD 07/02/2025 3:11 PM [facility] Ketones, Urine 15(A) Negative mg/dL LAB URINALYSIS - AUTOMATED METHOD 07/02/2025 3:11 PM [facility] Urobilinogen, Urine 0.2 0.2 - 1.0 mg/dL LAB URINALYSIS - AUTOMATED METHOD 07/02/2025 3:11 PM [facility] Bilirubin, Urine Negative Negative LAB URINALYSIS - AUTOMATED METHOD 07/02/2025 3:11 PM [facility] Blood, Urine Negative Negative LAB URINALYSIS - AUTOMATED METHOD 07/02/2025 3:11 PM [facility] RBC, Urine 1.6 0 - 4 /HPF LAB URINALYSIS - AUTOMATED METHOD 07/02/2025 3:11 PM [facility] WBC, Urine 6.1(H) 0 - 4 /HPF LAB URINALYSIS - AUTOMATED METHOD 07/02/2025 3:11 PM EDT [facility] Squamous Epithelial, Urine >100(H) 0 - 60 /LPF LAB URINALYSIS - AUTOMATED METHOD 07/02/2025 3:11 PM EDT [facility] Bacteria, Urine Few(A) Negative /HPF LAB URINALYSIS - AUTOMATED METHOD 07/02/2025 3:11 PM EDT [facility] Hyaline Casts, Urine 3.0 0 - 3 /LPF LAB URINALYSIS - AUTOMATED METHOD 07/02/2025 3:11 PM EDT [facility] Urine Urine specimen obtained by clean catch procedure / Unknown Non-blood Collection / Unknown 07/02/2025 2:19 PM EDT 07/02/2025 2:39 PM EDT us Aranza Gant MD LAB URINE ORDERABLES Final Res ult [facility] [address] [place] [address], [place] [phone] * XR Chest 1 View (07/02/2025 12:46 [...] Signed Date: 07/02/2025 12:57 ET Workstation ID: [id number] Transcribed By: Self Edit Transcribed Date: 07/02/2025 [...] Signed Date: 07/02/2025 12:57 ET Workstation ID: [id number] Transcribed By: Self Edit Transcribed Date: 07/02/2025 12:56 ET us Jodie Healy DO IMG XR PROCEDURES Final Resul t * Troponin I high sensitivity (07/02/2025 12:45 PM EDT) Only the most recent of3 resultswithin the time period is included. High Sensitivity Troponin I 9 <=54 ng/L LAB CHEMISTRY METHOD 07/02/2025 2:31 PM EDT [facility] Blood Venous blood specimen / Unknown Venipuncture / Unknown 07/02/2025 12:45 PM EDT 07/02/2025 1:52 PM EDT Narrative [facility] - 07/02/2025 2:31 PM EDT High levels of biotin in samples may falsely decrease hsTroponin values. Use caution when interpreting hsTroponin results in patients taking biotin who exhibit renal impairment (eGFR <60) or in patients taking more than 20 mg/day of biotin. us Jodie Healy DO LAB BLOOD ORDERABLES Final Re sult [facility] [address] [place] [address], * (ABNORMAL) CBC auto differential (07/02/2025 12:45 PM EDT) Only the most recent of2 resultswithin the time period is included. [facility] Signature WBC 16.5(H) 4.8 - 10.8 K/mcL LAB HEMETOLOGY METHOD 07/02/2025 2:01 PM EDT [facility] RBC 4.80 3.80 - 4.80 M/mcL LAB HEMETOLOGY METHOD 07/02/2025 2:01 PM EDT [facility] Hemoglobin 14.6 11.5 - 16.0 g/dL LAB HEMETOLOGY METHOD 07/02/2025 2:01 PM EDT [facility] Hematocrit 42.9 35.0 - 47.0 % LAB HEMETOLOGY METHOD 07/02/2025 2:01 PM EDT [facility] MCV 89.0 79.0 - 98.0 FL LAB HEMETOLOGY METHOD 07/02/2025 2:01 PM EDT [facility] MCH 30.3 27.0 - 32.0 pcg LAB [facility]OLOG[facility] MCHC 34.0 32.0 - 37.0 g/dL LAB HEMETOLOGY METHOD 07/02/2025 2:01 PM EDT [facility] RDW 14.3 11.0 - 15.0 % LAB HEMETOLOGY METHOD 07/02/2025 2:01 PM EDT [facility] Platelets 357 130 - 400 K/mcL LAB HEMETOLOGY METHOD 07/02/2025 2:01 PM EDT [facility] MPV 11.1(H) 7.0 - 11.0 FL LAB HEMETOLOGY METHOD 07/02/2025 2:01 PM EDT [facility] NRBC 0.0 <1.0 % LAB HEMETOLOGY METHOD 07/02/2025 2:01 PM [facility] NRBC Absolute 0.00 <0.10 K/mcL LAB HEMETOLOGY METHOD 07/02/2025 2:01 PM [facility] Neutrophils Relative 76.8 % LAB HEMETOLOGY METHOD 07/02/2025 2:01 PM [facility] Lymphocytes Relative 15.1 % LAB HEMETOLOGY METHOD 07/02/2025 2:01 PM [facility] Monocytes Relative 6.7 % LAB HEMETOLOGY METHOD 07/02/2025 2:01 PM [facility] Eosinophils Relative 0.2 % LAB HEMETOLOGY METHOD 07/02/2025 2:01 PM [facility] Basophils Relative 0.2 % LAB HEMETOLOGY METHOD 07/02/2025 2:01 PM [facility] Immature Granulocytes Relative 1.0 % LAB HEMETOLOGY METHOD 07/02/2025 2:01 PM [facility] Neutrophils Absolute 12.66(H) 1.50 - 7.00 K/mcL LAB HEMETOLOGY METHOD 07/02/2025 2:01 PM [facility] Lymphocytes Absolute 2.50 1.00 - 5.00 K/mcL LAB HEMETOLOGY METHOD 07/02/2025 2:01 PM [facility] Monocytes Absolute 1.11(H) 0.20 - 1.00 K/mcL LAB HEMETOLOGY METHOD 07/02/2025 2:01 PM [facility] Eosinophils Absolute 0.04 0.00 - 0.50 K/mcL LAB HEMETOLOGY METHOD 07/02/2025 2:01 PM [facility] Basophils Absolute 0.04 0.00 - 0.20 K/mcL LAB HEMETOLOGY METHOD 07/02/2025 2:01 PM EDT [facility] Immature Granulocytes Absolute 0.17(H) 0.00 - 0.03 K/mcL LAB HEMETOLOGY METHOD 07/02/2025 2:01 PM EDT [facility] Blood Venous blood specimen / Unknown Venipuncture / Unknown 07/02/2025 12:45 PM EDT 07/02/2025 1:52 PM EDT [facility] BLOOD ORDERABLES Final Re sult Performing Organization Address [facility]/ZIP Co de Phone Number [facility] [address] [place] [address], [place] [phone] * (ABNORMAL) B-type natriuretic peptide (07/02/2025 12:45 PM EDT) BNP 250(H) <=100 pcg/mL LAB CHEMISTRY METHOD 07/02/2025 2:33 PM EDT [facility] Blood Venous blood specimen / Unknown Venipuncture / Unknown 07/02/2025 12:45 PM EDT 07/02/2025 1:52 PM EDT [facility] BLOOD ORDERABLES Final Re sult Performing Organization Address [facility]/ZIP Co de Phone Number [facility] [address] [place] [address], [place] [phone] * (ABNORMAL) Magnesium (07/02/2025 12:45 PM EDT) Only the most recent of2 resultswithin the time period is included. Magnesium 1.8(L) 1.9 - 2.6 mg/dL LAB CHEMISTRY METHOD 07/02/2025 2:48 PM EDT [facility] Blood Venous blood specimen / Unknown Venipuncture / Unknown 07/02/2025 12:45 PM EDT 07/02/2025 1:52 PM EDT [facility] BLOOD ORDERABLES Final Re sult Performing Organization Address [facility]/ZIP Co de Phone Number [facility] [address] [place] [address], [place] [phone] * (ABNORMAL) Lipase (07/02/2025 12:45 PM EDT) Only the most recent of2 resultswithin the time period is included. Pathologist [facility] Lipase 12(L) 13 - 75 unit/L LAB CHEMISTRY METHOD 07/02/2025 2:48 PM EDT [facility] Blood Venous blood specimen / Unknown Venipuncture / Unknown 07/02/2025 12:45 PM EDT 07/02/2025 1:52 PM EDT [facility] BLOOD ORDERABLES Final Re sult Performing Organization Address [facility] de Phone Number [facility] [address] [place] [address], [place] [phone] * (ABNORMAL) Comprehensive metabolic panel (07/02/2025 12:45 PM EDT) Only the most recent of2 resultswithin the time period is included. [facility] Sodium 141 133 - 145 mmol/L LAB CHEMISTRY METHOD 07/02/2025 2:56 PM EDT [facility] Potassium 3.0(L) 3.5 - 5.5 mmol/L LAB CHEMISTRY METHOD 07/02/2025 2:56 PM EDT [facility] Chloride 109 96 - 110 mmol/L LAB CHEMISTRY METHOD 07/02/2025 2:56 PM EDT [facility] CO2 19(L) 21 - 32 mmol/L LAB CHEMISTRY METHOD 07/02/2025 2:56 PM EDT [facility] Anion Gap 13(H) 3 - 11 LAB CHEMISTRY METHOD 07/02/2025 2:56 PM EDT [facility] Glucose 232(H) 70 - 100 mg/dL LAB CHEMISTRY METHOD 07/02/2025 2:56 PM [facility] BUN 11 5 - 25 mg/dL LAB CHEMISTRY METHOD 07/02/2025 2:56 PM [facility] Creatinine 0.83 0.50 - 1.10 mg/dL LAB CHEMISTRY METHOD 07/02/2025 2:56 PM [facility] eGFR 76 >=60 mL/min/1. 73m2 LAB CHEMISTRY METHOD 07/02/2025 2:56 PM [facility] Comment:Calculation based on the Chronic Kidney Disease Epidemiology Collaboration (CKD-EPI) equation refit without adjustment for race. BUN/Creatinine Ratio 13.3 LAB CHEMISTRY METHOD 07/02/2025 2:56 PM [facility] Calcium 9.8 8.5 - 10.5 mg/dL LAB CHEMISTRY METHOD 07/02/2025 2:56 PM [facility] AST (SGOT) 19 10 - 42 unit/L LAB CHEMISTRY METHOD 07/02/2025 2:56 PM [facility] ALT (SGPT) 12 10 - 60 unit/L LAB CHEMISTRY METHOD 07/02/2025 2:56 PM [facility] Alkaline Phosphatase 114 42 - 121 unit/L LAB CHEMISTRY METHOD 07/02/2025 2:56 PM [facility] Total Protein 6.7 6.0 - 8.0 g/dL LAB CHEMISTRY METHOD 07/02/2025 2:56 PM [facility] Albumin 3.9 3.2 - 5.0 g/dL LAB CHEMISTRY METHOD 07/02/2025 2:56 PM [facility] Total Bilirubin 0.8 0.0 - 1.4 mg/dL LAB CHEMISTRY METHOD 07/02/2025 2:56 PM [facility] Blood Venous blood specimen / Unknown Venipuncture / Unknown 07/02/2025 12:45 PM EDT 07/02/2025 1:52 PM EDT Jodie Healy LAB BLOOD ORDERABLES Final Re sult Performing Organization Address [facility]/ZIP Co de Phone Number [facility] [address] [place] [address], [place] [phone] * ECG 12 lead (07/02/2025 12:39 PM EDT) Only the most recent of2 resultswithin the time period is included. Ventricular Rate ECG 94 BPM GEMUSE Atrial Rate 94 BPM GEMUSE P-R Interval 194 ms GEMUSE QRS Duration 96 ms GEMUSE Q-T Interval 366 ms GEMUSE QTc 457 ms GEMUSE P Wave [place] 50 degrees GEMUSE R [place] 9 degrees GEMUSE T [place] 31 degrees GEMUSE ECG Interpretation Sinus rhythm with marked sinus arrhythmia Nonspecific ST abnormality Abnormal ECG When compared with ECG of 02-MAY-2025 17:12, No significant change was found Confirmed by AMADOR QUINTANILLA ([id number]) on 07/03/2025 11:45:16 AM GEMUSE 07/02/2025 12:3 9 PM EDT 07/03/2025 11:45 AM EDT Jodie Healy ECG ORDERABLES Final Result Performing Organization Address [facility] Co de Phone Number GEMUSE * (ABNORMAL) Lactate, with reflex (05/02/2025 8:22 PM EDT) Pathologist [facility] LACTIC ACID 2.2(H) 0.4 - 2.0 mmol/L LAB CHEMISTRY METHOD 05/02/2025 9:02 PM EDT [facility] Blood Venous blood specimen / Unknown Venipuncture / Unknown 05/02/2025 8:22 PM EDT 05/02/2025 8:29 PM EDT [facility] BLOOD ORDERABLES Final Re sult Performing Organization Address [facility]/ZIP Co de Phone Number [facility] [address] [place] [address], [place] [phone] * (ABNORMAL) Venous blood gas (05/02/2025 8:22 PM EDT) pH, Edin 7.48(H) 7.32 - 7.42 pH 05/02/2025 8:32 PM EDT [facility] pCO2, Ed[place] 37(L) 41 - 51 mmHg 05/02/2025 8:32 PM EDT [facility] pO2, [place] 23(L) 25 - 40 mmHg 05/02/2025 8:32 PM EDT [facility] HCO3, Venous 25.9 22.0 - 26.0 mmol/L 05/02/2025 8:32 PM EDT [facility] O2 Sat, Edin 32.4 % 05/02/2025 8:32 PM EDT [facility] Base Excess, Ed[place] 4.1(H) -2.0 - 2.0 mmol/L 05/02/2025 8:32 PM EDT [facility] Blood Venous blood specimen / Unknown Venipuncture / Unknown 05/02/2025 8:22 PM EDT 05/02/2025 8:29 PM EDT [facility] BLOOD ORDERABLES Final Re sult [facility] [address] [place] [address], [place] [phone] * (ABNORMAL) Urinalysis with reflex microscopic and culture (05/02/2025 7:29 PM EDT) [facility] Specific Reading Urine >1.045(H) 1.003 - 1.030 LAB URINALYSIS - AUTOMATED METHOD 05/02/2025 8:14 PM EDT [facility] pH, Urine 6.0 5.0 - 8.0 pH LAB URINALYSIS - AUTOMATED METHOD 05/02/2025 8:14 PM [facility] Leukocytes, Urine Moderate(A) Negative LAB URINALYSIS - AUTOMATED METHOD 05/02/2025 8:14 PM [facility] Nitrite, Urine Positive(A) Negative LAB URINALYSIS - AUTOMATED METHOD 05/02/2025 8:14 PM [facility] Protein, Urine 30(A) <=Trace mg/dL LAB URINALYSIS - AUTOMATED METHOD 05/02/2025 8:14 PM [facility] Glucose, Urine Negative Negative mg/dL LAB URINALYSIS - AUTOMATED METHOD 05/02/2025 8:14 PM [facility] Ketones, Urine 15(A) Negative mg/dL LAB URINALYSIS - AUTOMATED METHOD 05/02/2025 8:14 PM [facility] Urobilinogen , Urine 0.2 0.2 - 1.0 mg/dL LAB URINALYSIS - AUTOMATED METHOD 05/02/2025 8:14 PM [facility] Bilirubin, Urine Negative Negative LAB URINALYSIS - AUTOMATED METHOD 05/02/2025 8:14 PM [facility] Blood, Urine Small(A) Negative LAB URINALYSIS - AUTOMATED METHOD 05/02/2025 8:14 PM [facility] RBC, Urine 7.4(H) 0 - 4 /HPF LAB URINALYSIS - AUTOMATED METHOD 05/02/2025 8:14 PM [facility] WBC, Urine 355.8(H) 0 - 4 /HPF LAB URINALYSIS - AUTOMATED METHOD 05/02/2025 8:14 PM [facility] Squamous Epithelial, Urine 52 0 - 60 /LPF LAB URINALYSIS - AUTOMATED METHOD 05/02/2025 8:14 PM [facility] Bacteria, Urine Many(A) Negative /HPF LAB URINALYSIS - AUTOMATED METHOD 05/02/2025 8:14 PM EDT [facility] Hyaline Casts, Urine 2.0 0 - 3 /LPF LAB URINALYSIS - AUTOMATED METHOD 05/02/2025 8:14 PM EDT [facility] Urine Urinary bladder structure / Unknown Non-blood Collection / Unknown 05/02/2025 7:29 PM EDT 05/02/2025 7:50 PM EDT [facility] URINE ORDERABLES Final Re sult [facility] [address] [place] [address], [place] [phone] * Richard urine culture tube (05/02/2025 7:29 PM EDT) Extra Tube Hold for add-ons. 05/02/2025 9:01 PM EDT [facility] Comment:Auto resulted. Urine Urinary bladder structure / Unknown Non-blood Collection / Unknown 05/02/2025 7:29 PM EDT 05/02/2025 7:50 PM EDT [facility] URINE ORDERABLES Final Re sult [facility] [address] [place] [address], [place] [phone] * (ABNORMAL) Culture urine (05/02/2025 7:29 PM EDT) Culture, Urine >100,000 CFU/mL Klebsiella pneumoniae ssp pneumoniae(A) MARIELA 05/04/2025 9:02 AM EDT [facility] Comment: This is an edited result. [...] MICROBIOLOGY - GENERAL OR DERABLES Final Result [facility] [address] [place] [address], [place] [phone] * CT Abdomen Pelvis w Contrast (05/02/2025 [...] currently active code status orders. Care Teams Fixed Interest Dealer Relationship Specialty Start Date End Date Pepe Murrieta MD [address] [place] [address] PCP - General 09/27/16
== END 2025-07-23 09:43 | disposition home or self-care (01) ==
LOC: HO.CT 09:42
PROVIDERS: Absent Provider Psychiatry & Neurology Neurology; PCP Internal Medicine; Visit Provider Physician Assistant Medical
DX: Z12.2 Encounter for screening for malignant neoplasm of respiratory organs (principal); F17.210 Nicotine dependence, cigarettes, uncomplicated; G31.84 Mild cognitive impairment of uncertain or unknown etiology; F51.04 Psychophysiologic insomnia
CPT/HCPCS: 36415; 71271; 82233; 82234; 84393

== ENCOUNTER → 2025-07-23 09:43 | Outpatient (BNV) | payer MEDICARE, SELFPAY | PROVIDERS: Absent Provider Psychiatry & Neurology Neurology; PCP Internal Medicine; Visit Provider Nuclear Medicine | DX: F17.210 Nicotine dependence, cigarettes, uncomplicated (principal) | CPT/HCPCS: 71271 ==

== ENCOUNTER 2025-07-23 11:35 | Outpatient (AMB) | payer MEDICARE, SELFPAY ==
--- NOTE | 2025-07-23 11:43 | MHC.OFFVIS ---
Intake Visit Reasons: Sleep disorder Allergies Sulfa (Sulfonamide Antibiotics) Allergy (Mild, Verified 07/09/25 10:58) HIVES inositol niacinate (Niacin No Flush) Allergy (Unknown, Verified 07/09/25 10:58) N/V niacin (Niacin No Flush) Allergy (Unknown, Verified 07/09/25 10:58) N/V Medication List - Last Reconciled 07/23/25 by Shila Murrieta MD albuterol sulfate 90 mcg/actuation 1 inh inhalation QID PRN amlodipine 5 mg PO DAILY atenolol 50 mg PO DAILY cephalexin 500 mg PO Q6H clonidine HCl 0.05 mg (1/2 x 0.1 mg) PO BEDTIME dicyclomine 20 mg PO QID 90 days NS doxycycline hyclate 100 mg PO BID escitalopram oxalate 10 mg PO DAILY losartan 50 mg PO BID 90 days mupirocin 2% 1 appl topical TID pantoprazole 40 mg PO BID 30 days sucralfate 1 g PO QID valacyclovir 500 mg PO DAILY PRN HPI Comments Details: The patient is a 69-year-old female presenting with memory impairment. She has noticed difficulties in remembering various tasks and events, which have been progressively worsening. Additionally, the patient experiences insomnia, with difficulty in maintaining sleep primarily due to frequent nocturnal urination. She reports nocturia for the past year, occurring three to four times per night, contributing substantially to daytime fatigue and sleep disturbance. 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 Insomnia has been a concern for several years, which may be exacerbated by care home and physical inactivity. She is currently taking 150 mg of gabapentin, which aids in both her sleep and management of peripheral neuropathy. Her medical history includes peripheral neuropathy, essential hypertension, and peripheral arterial disease, with hypertension managed through multiple antihypertensive agents. The patient has not begun any consultations or further diagnostics for the nocturia or memory issues at this time, as these were to be initiated after today?s consult. [facility] Medical History (Updated 07/23/25 @ 11:53 by Shila Murrieta MD) Insomnia Hypertension, essential Hyperlipidemia COPD (chronic obstructive pulmonary disease) Nicotine dependence, cigarettes, uncomplicated Cough [id number] condition Osteopenia (~2009) Bladder disorder Dysuria Hiatal hernia Gallstones Post-cholecystectomy syndrome Nausea and vomiting Major depression, recurrent Anxiety Restless leg syndrome Renal cyst, left Shortness of breath Menopause Surgical History History of cholecystectomy (~03/2022) History of colonoscopy History of esophagogastroduodenoscopy (EGD) History of endometrial ablation Family History Father Diabetes Liver cancer Mother HTN (hypertension) Other Mental health disorder Substance use disorder Social History Housing: House Alcohol intake: never Patient Tobacco Use Status: Current everyday Tobacco user Tobacco use type: Cigarette Years Smoked: (onset 20yo, 1/2ppd x 46yrs, 23pyh) e-Cigarette/Vaping Use: Never Used Second Hand Smoke Exposure: Yes service: No Current occupational status: employed Cognitive needs: No Hearing needs: No Vision needs: Yes Female Reproductive History Menstrual Age of Menarche: 11 Review of Systems Const Details: - Neurologic: Reports memory impairment. Reports peripheral neuropathy. - Genitourinary: Reports nocturia. - Psychiatric: Reports insomnia. Denies significant stress. - Cardiovascular: Reports history of essential hypertension and peripheral arterial disease. Physical Exam Neuro Other: Mental Status: Alert and oriented to person, place, and time. Normal attention. Normal spontaneous speech, fluency, and comprehension. No obvious issues with mood and memory. Affect is appropriate. Cranial Nerves: CN II: Visual lloyd full to confrontation, visual acuity intact. CN III, IV, : Pupils equal, round, reactive to light and accommodation. Extraocular movements are normal. CN V: Facial sensation is normal. CN VII: Facial movements symmetrical. CN VIII: Hearing intact to bedside conversation is normal. CN IX, X: Palate elevates symmetrically. CN XI: Shoulder shrug and head turn symmetrical. CN XII: Tongue midline without atrophy or fasciculations. Motor: Bulk and tone normal in all extremities. No significant muscle weakness in arms and legs. No drift. Reflexes: Deep tendon reflexes 2+ and symmetric. Plantar response down-going bilaterally. Coordination: [id number]-[id number] and bymt-al-tbdg testing normal. No dysmetria. Gait and Station: No obvious gait abnormality. No ataxia or instability. Extrapyramidal: Full facial expressions and blinking. No rigidity. Movements are appropriate with no tremor or abnormality. Speech: Normal; no dysarthria or tremor. Extrem Other: Mental Status: Alert and oriented to person, place, and time. Normal attention. Normal spontaneous speech, fluency, and comprehension. MOCA 25. Cranial Nerves: CN II: Visual lloyd full to confrontation, visual acuity intact. CN III, IV, : Pupils equal, round, reactive to light and accommodation. Extraocular movements are normal. CN V: Facial sensation is normal. CN VII: Facial movements symmetrical. CN VIII: Hearing intact to bedside conversation is normal. CN IX, X: Palate elevates symmetrically. CN XI: Shoulder shrug and head turn symmetrical. CN XII: Tongue midline without atrophy or fasciculations. Motor: Bulk and tone normal in all extremities. No significant muscle weakness in arms and legs. No drift. Reflexes: Deep tendon reflexes 2+ and symmetric. Plantar response down-going bilaterally. Coordination: [id number]-fc-ivye and rylw-me-rlzs testing normal. No dysmetria. Gait and Station: No obvious gait abnormality. No ataxia or instability. Extrapyramidal: Full facial expressions and blinking. No rigidity. Movements are appropriate with no tremor or abnormality. Speech: Normal; no dysarthria or tremor. Assessment & Plan Assessment & Plan (1) MCI (mild cognitive impairment): Code(s): G31.84 - Mild cognitive impairment of uncertain or unknown etiology Category: Medical (2) Insomnia: Code(s): G47.00 - Insomnia, unspecified Category: Medical Qualifiers: Insomnia type: psychophysiologic Qualified Code(s): F51.04 - Psychophysiologic insomnia Plan Impression: a: Mild cognitive impairment b: Insomnia, psychophysiological, worsened by frequent urination Rec: a: Serum cerebral amyloid load test b: Consider referral to compressor operator and/or urologist for frequent urination to r/o any mechanical cause c: She is using gabapentin 150mg one at night on as needed basis, which is ok to take Orders: Orders ABeta 42/40 p-tau 217 Eval Today G31.84 - Mild cognitive impairment of uncertain or unknown etiology Coding Level of Care Code New Pt Level 5 (50940) Diagnoses MCI (mild cognitive impairment) G31.84 Psychophysiological insomnia F51.04 Insomnia type: psychophysiologic
== END 2025-07-23 12:07 | disposition home or self-care (01) ==
LOC: HO.HSM 11:36
PROVIDERS: PCP Internal Medicine; Visit Provider Psychiatry & Neurology Neurology
DX: G31.84 Mild cognitive impairment of uncertain or unknown etiology (principal); F51.04 Psychophysiologic insomnia
CPT/HCPCS: 99204

== ENCOUNTER 2025-08-28 10:09 | Outpatient (REF) | payer MEDICARE, SELFPAY ==
--- NOTE | ~2025-08-28 | MM_ITS ---
EXAMINATION: DXA BONE DENSITY AXIAL HISTORY: Z12.31 - Encounter for screening mammogram for malignant neoplasm of breast TECHNIQUE: Zeis Excelsa Dual energy absorptiometry (DEXA) of the lumbar spine, total left hip, and femoral neck was performed. COMPARISON: Comparison is made with the prior examination dated 04/18/2010. FINDINGS: The bone mineral density of the lumbar spine is 0.862 g/cm2, corresponding to a T-score of -2.6, and a Z-score of -1.2. This is indicative of osteoporosis. This represents a BMD change of -6.8% compared to the prior exam. This is statistically significant. The bone mineral density of the left total hip is 0.768 g/cm2, corresponding to a T-score of -1.9, and a Z-score of -0.6. This is indicative of osteopenia. This represents a BMD change of -11.8% compared to the prior exam. This is statistically significant. The bone mineral density of the left femoral neck is 0.720 g/cm2, corresponding to a T-score of -2.3, and a Z-score of -0.7. This is indicative of osteopenia. This represents a BMD change of -16.8% compared to the prior exam. MM/XR DEXA axial skeleton IMPRESSION: Based on bone mineral density, and according to World Health Organization (WHO) criteria, the diagnosis is consistent with osteoporosis. Statistically, 68% of repeat scans fall within 1 SD (+/- 0.010 g/cm2 for AP spine L1-L4) and 1 SD (+/- 0.012 g/cm2 for femur total) FRAX is a trademark of the [employer] [place] for Metabolic Bone Disease, a World Health Organization (WHO) Collaborating Center. Electronically signed by: Vinnie Huston MD 08/28/2025 11:02 AM EDT
--- OUTSIDE RECORDS SUMMARY | 2025-08-28 12:16 | XMS_ITS | Clinical Summary ---
Author Organization Patient Business Ser [facility] [place] Address [address] [place] [address] Care Team Providers Care Fluid Power Mechanic Name Role Phone Pepe Murrieta MD Primary Care Provider [phone] Allergies Active Allergy Reactions Criticality Noted Date [...] - 07/02/2025 6:52 PM EDT Emergency [facility] Emergency [address] [place] [address] Aranza Gant MD Nausea and vomiting, unspecified vomiting type (Primary Dx); Hypokalemia Discharge Disposition: Home or Self Care from Last 3 Months Surgical History Surgery Date Site/Laterality Comments CHOLECYSTECTOMY PROCEDURE: ND LAPAROSCOPY SURG CHOLECYSTECTOMY Medical History Medical History [...] Last Done Comments Breast Cancer Screening 1955 Colorectal Cancer Screening: Colonoscopy 1955 DTaP,Tdap,and Td Vaccines (1 - Tdap) 1974 Pneumococcal Vaccine: 50+ Years (1 of 2 - PCV) 1974 Zoster Vaccines (1 of 2) 2005 Cholesterol Screening (Lipid Panel) 07/01/2022 Hepatitis C Screening 07/01/2022 Medicare Annual [...] ECG 12-LEAD STAT 07/02/2025 12:39 PM EDT from Last 3 Months Results * ECG-Annotated (07/03/2025) us Provider Onbase MD ECG ORDERABLES Final Result * (ABNORMAL) CBC (07/02/2025 4:46 PM EDT) [facility] Signature WBC 14.7(H) 4.8 - 10.8 K/mcL LAB HEMETOLOGY METHOD 07/02/2025 5:56 PM EDT [facility] RBC 5.00(H) 3.80 - 4.80 M/mcL LAB HEMETOLOGY METHOD 07/02/2025 5:56 PM EDT [facility] Hemoglobin 15.1 11.5 - 16.0 g/dL LAB HEMETOLOGY METHOD 07/02/2025 5:56 PM EDT [facility] Hematocrit 44.0 35.0 - 47.0 % LAB HEMETOLOGY METHOD 07/02/2025 5:56 PM EDT [facility] MCV 88.9 79.0 - 98.0 FL LAB HEMETOLOGY METHOD 07/02/2025 5:56 PM EDT [facility] MCH 30.5 27.0 - 32.0 pcg LAB HEMETOLOGY METHOD 07/02/2025 5:56 PM EDT [facility] MCHC 34.3 32.0 - 37.0 g/dL LAB HEMETOLOGY METHOD 07/02/2025 5:56 PM EDT [facility] RDW 14.4 11.0 - 15.0 % LAB HEMETOLOGY METHOD 07/02/2025 5:56 PM EDT [facility] Platelets 335 130 - 400 K/mcL LAB HEMETOLOGY METHOD 07/02/2025 5:56 PM EDT [facility] MPV 11.1(H) 7.0 - 11.0 FL LAB HEMETOLOGY METHOD 07/02/2025 5:56 PM EDT [facility] NRBC 0.0 <1.0 % LAB HEMETOLOGY METHOD 07/02/2025 5:56 PM EDT [facility] NRBC Absolute 0.00 <0.10 K/mcL LAB HEMETOLOGY METHOD 07/02/2025 5:56 PM EDT [facility] Blood Venous blood specimen / Unknown Venipuncture / Unknown 07/02/2025 4:46 PM EDT 07/02/2025 5:25 PM EDT us Aranza Gant MD LAB BLOOD ORDERABLES Final Res ult [facility] [address] [place] [address], * (ABNORMAL) Urinalysis with reflex microscopic (07/02/2025 2:19 PM EDT) Specific [place] Urine 1.025 1.003 - 1.030 LAB URINALYSIS - AUTOMATED METHOD 07/02/2025 3:11 PM [facility] pH, Urine 6.0 5.0 - 8.0 pH LAB URINALYSIS - AUTOMATED METHOD 07/02/2025 3:11 PM [facility] Leukocytes, Urine Negative Negative LAB URINALYSIS - AUTOMATED METHOD 07/02/2025 3:11 PM [facility] Nitrite, Urine Negative Negative LAB URINALYSIS - AUTOMATED METHOD 07/02/2025 3:11 PM [facility] Protein, Urine 30(A) <=Trace mg/dL LAB URINALYSIS - AUTOMATED METHOD 07/02/2025 3:11 PM [facility] Glucose, Urine 500(A) Negative mg/dL LAB URINALYSIS - AUTOMATED METHOD 07/02/2025 3:11 PM [facility] Ketones, Urine 15(A) Negative mg/dL LAB URINALYSIS - AUTOMATED METHOD 07/02/2025 3:11 PM [facility] Urobilinogen, Urine 0.2 0.2 - 1.0 mg/dL LAB URINALYSIS - AUTOMATED METHOD 07/02/2025 3:11 PM [facility] Bilirubin, Urine Negative Negative LAB URINALYSIS - AUTOMATED METHOD 07/02/2025 3:11 PM [facility] Blood, Urine Negative Negative LAB URINALYSIS - AUTOMATED METHOD 07/02/2025 3:11 PM [facility] RBC, Urine 1.6 0 - 4 /HPF LAB URINALYSIS - AUTOMATED METHOD 07/02/2025 3:11 PM [facility] WBC, Urine 6.1(H) 0 - 4 /HPF LAB URINALYSIS - AUTOMATED METHOD 07/02/2025 3:11 PM [facility] Squamous Epithelial, Urine >100(H) 0 - 60 /LPF LAB URINALYSIS - AUTOMATED METHOD 07/02/2025 3:11 PM EDT [facility] Bacteria, Urine Few(A) Negative /HPF LAB URINALYSIS - AUTOMATED METHOD 07/02/2025 3:11 PM EDT [facility] Hyaline Casts, Urine 3.0 0 - 3 /LPF LAB URINALYSIS - AUTOMATED METHOD 07/02/2025 3:11 PM EDT [facility] Urine Urine specimen obtained by clean catch procedure / Unknown Non-blood Collection / Unknown 07/02/2025 2:19 PM EDT 07/02/2025 2:39 PM EDT us Aranza Gant MD LAB URINE ORDERABLES Final Res ult [facility] [address] [place] [address], [place] [phone] * XR Chest 1 View (07/02/2025 12:46 [...] Signed Date: 07/02/2025 12:57 ET Workstation ID: [id number] Transcribed By: Self Edit Transcribed Date: 07/02/2025 [...] Signed Date: 07/02/2025 12:57 ET Workstation ID: [id number] Transcribed By: Self Edit Transcribed Date: 07/02/2025 12:56 ET us Jodie Healy DO IMG XR PROCEDURES Final Resul t * Troponin I high sensitivity (07/02/2025 12:45 PM EDT) Pathologist [facility] High Sensitivity Troponin I 9 <=54 ng/L LAB CHEMISTRY METHOD 07/02/2025 2:31 PM EDT [facility] Blood Venous blood specimen / Unknown Venipuncture / Unknown 07/02/2025 12:45 PM EDT 07/02/2025 1:52 PM EDT Narrative [facility] - 07/02/2025 2:31 PM EDT High levels of biotin in samples may falsely decrease hsTroponin values. Use caution when interpreting hsTroponin results in patients taking biotin who exhibit renal impairment (eGFR <60) or in patients taking more than 20 mg/day of biotin. us Jodie Healy DO LAB BLOOD ORDERABLES Final Re sult [facility] [address] [place] [address], [place] [phone] * (ABNORMAL) CBC auto differential (07/02/2025 12:45 PM EDT) [facility] WBC 16.5(H) 4.8 - 10.8 K/mcL LAB HEMETOLOGY METHOD 07/02/2025 2:01 PM [facility] RBC 4.80 3.80 - 4.80 M/mcL LAB HEMETOLOGY METHOD 07/02/2025 2:01 PM [facility] Hemoglobin 14.6 11.5 - 16.0 g/dL LAB HEMETOLOGY METHOD 07/02/2025 2:01 PM [facility] Hematocrit 42.9 35.0 - 47.0 % LAB HEMETOLOGY METHOD 07/02/2025 2:01 PM [facility] MCV 89.0 79.0 - 98.0 FL LAB HEMETOLOGY METHOD 07/02/2025 2:01 PM [facility] MCH 30.3 27.0 - 32.0 pcg LAB HEMETOLOGY METHOD 07/02/2025 2:01 PM [facility] MCHC 34.0 32.0 - 37.0 g/dL LAB HEMETOLOGY METHOD 07/02/2025 2:01 PM [facility] RDW 14.3 11.0 - 15.0 % LAB HEMETOLOGY METHOD 07/02/2025 2:01 PM [facility] Platelets 357 130 - 400 K/mcL LAB HEMETOLOGY METHOD 07/02/2025 2:01 PM [facility] MPV 11.1(H) 7.0 - 11.0 FL LAB HEMETOLOGY METHOD 07/02/2025 2:01 PM [facility] NRBC 0.0 <1.0 % LAB HEMETOLOGY METHOD 07/02/2025 2:01 PM [facility] NRBC Absolute 0.00 <0.10 K/mcL LAB HEMETOLOGY METHOD 07/02/2025 2:01 PM [facility] Neutrophils Relative 76.8 % LAB HEMETOLOGY METHOD 07/02/2025 2:01 PM [facility] Lymphocytes Relative 15.1 % LAB HEMETOLOGY METHOD 07/02/2025 2:01 PM [facility] Monocytes Relative 6.7 % LAB HEMETOLOGY METHOD 07/02/2025 2:01 PM [facility] Eosinophils Relative 0.2 % LAB HEMETOLOGY METHOD 07/02/2025 2:01 PM [facility] Basophils Relative 0.2 % LAB HEMETOLOGY METHOD 07/02/2025 2:01 PM [facility] Immature Granulocytes Relative 1.0 % LAB HEMETOLOGY METHOD 07/02/2025 2:01 PM [facility] Neutrophils Absolute 12.66(H) 1.50 - 7.00 K/mcL LAB HEMETOLOGY METHOD 07/02/2025 2:01 PM [facility] Lymphocytes Absolute 2.50 1.00 - 5.00 K/mcL LAB HEMETOLOGY METHOD 07/02/2025 2:01 PM [facility] Monocytes Absolute 1.11(H) 0.20 - 1.00 K/mcL LAB HEMETOLOGY METHOD 07/02/2025 2:01 PM [facility] Eosinophils Absolute 0.04 0.00 - 0.50 K/mcL LAB HEMETOLOGY METHOD 07/02/2025 2:01 PM [facility] Basophils Absolute 0.04 0.00 - 0.20 K/mcL LAB HEMETOLOGY METHOD 07/02/2025 2:01 PM [facility] Immature Granulocytes Absolute 0.17(H) 0.00 - 0.03 K/mcL LAB HEMETOLOGY METHOD 07/02/2025 2:01 PM [facility] Blood Venous blood specimen / Unknown Venipuncture / Unknown 07/02/2025 12:45 PM EDT 07/02/2025 1:52 PM EDT [facility] LAB BLOOD ORDERABLES Final Re sult Performing Organization Address [facility]/ZIP Co de Phone Number [facility] [address] [place] [address], [place] [phone] * (ABNORMAL) B-type natriuretic peptide (07/02/2025 12:45 PM EDT) BNP 250(H) <=100 pcg/mL LAB CHEMISTRY METHOD 07/02/2025 2:33 PM EDT [facility] Blood Venous blood specimen / Unknown Venipuncture / Unknown 07/02/2025 12:45 PM EDT 07/02/2025 1:52 PM EDT [facility] BLOOD ORDERABLES Final Re sult Performing Organization Address [facility] de Phone Number [facility] [address] [place] [address], [place] [phone] * (ABNORMAL) Magnesium (07/02/2025 12:45 PM EDT) Pathologist [facility] Magnesium 1.8(L) 1.9 - 2.6 mg/dL LAB CHEMISTRY METHOD 07/02/2025 2:48 PM EDT [facility] Blood Venous blood specimen / Unknown Venipuncture / Unknown 07/02/2025 12:45 PM EDT 07/02/2025 1:52 PM EDT [facility] LAB BLOOD ORDERABLES Final Re sult Performing Organization Address [facility]/ZIP Co de Phone Number [facility] [address] [place] [address], [place] [phone] * (ABNORMAL) Lipase (07/02/2025 12:45 PM EDT) Lipase 12(L) 13 - 75 unit/L LAB CHEMISTRY METHOD 07/02/2025 2:48 PM T [facility] Blood Venous blood specimen / Unknown Venipuncture / Unknown 07/02/2025 12:45 PM EDT 07/02/2025 1:52 PM EDT us Jodie Healy DO LAB BLOOD ORDERABLES Final Re sult [facility] [address] [place] [address], * (ABNORMAL) Comprehensive metabolic panel (07/02/2025 12:45 PM EDT) Pathologist [facility] Sodium 141 133 - 145 mmol/L LAB CHEMISTRY METHOD 07/02/2025 2:56 PM [facility] Potassium 3.0(L) 3.5 - 5.5 mmol/L LAB CHEMISTRY METHOD 07/02/2025 2:56 PM [facility] Chloride 109 96 - 110 mmol/L LAB CHEMISTRY METHOD 07/02/2025 2:56 PM [facility] CO2 19(L) 21 - 32 mmol/L LAB CHEMISTRY METHOD 07/02/2025 2:56 PM [facility] Anion Gap 13(H) 3 - 11 LAB CHEMISTRY METHOD 07/02/2025 2:56 PM [facility] Glucose 232(H) 70 - 100 mg/dL LAB CHEMISTRY METHOD 07/02/2025 2:56 PM [facility] BUN 11 5 - 25 mg/dL LAB CHEMISTRY METHOD 07/02/2025 2:56 PM [facility] Creatinine 0.83 0.50 - 1.10 mg/dL LAB CHEMISTRY METHOD 07/02/2025 2:56 PM [facility] eGFR 76 >=60 mL/min/1. 73m2 LAB CHEMISTRY METHOD 07/02/2025 2:56 PM EDT [facility] Comment:Calculation based on the Chronic Kidney Disease Epidemiology Collaboration (CKD-EPI) equation refit without adjustment for race. BUN/Creatinine Ratio 13.3 LAB CHEMISTRY METHOD 07/02/2025 2:56 PM EDT [facility] Calcium 9.8 8.5 - 10.5 mg/dL LAB CHEMISTRY METHOD 07/02/2025 2:56 PM EDT [facility] AST (SGOT) 19 10 - 42 unit/L LAB CHEMISTRY METHOD 07/02/2025 2:56 PM EDT [facility] ALT (SGPT) 12 10 - 60 unit/L LAB CHEMISTRY METHOD 07/02/2025 2:56 PM EDT [facility] Alkaline Phosphatase 114 42 - 121 unit/L LAB CHEMISTRY METHOD 07/02/2025 2:56 PM EDT [facility] Total Protein 6.7 6.0 - 8.0 g/dL LAB CHEMISTRY METHOD 07/02/2025 2:56 PM EDT [facility] Albumin 3.9 3.2 - 5.0 g/dL LAB CHEMISTRY METHOD 07/02/2025 2:56 PM EDT [facility] Total Bilirubin 0.8 0.0 - 1.4 mg/dL LAB CHEMISTRY METHOD 07/02/2025 2:56 PM EDT [facility] Blood Venous blood specimen / Unknown Venipuncture / Unknown 07/02/2025 12:45 PM EDT 07/02/2025 1:52 PM EDT us Jodie Healy DO LAB BLOOD ORDERABLES Final Re sult [facility] [address] [place] [address], * ECG 12 lead (07/02/2025 12:39 PM EDT) Ventricular Rate ECG 94 BPM GEMUSE Atrial Rate 94 BPM GEMUSE P-R Interval 194 ms GEMUSE QRS Duration 96 ms GEMUSE Q-T Interval 366 ms GEMUSE QTc 457 ms GEMUSE P Wave [place] 50 degrees GEMUSE R [place] 9 degrees GEMUSE T [place] 31 degrees GEMUSE ECG Interpretation Sinus rhythm with marked sinus arrhythmia Nonspecific ST abnormality Abnormal ECG When compared with ECG of 02-MAY-2025 17:12, No significant change was found Confirmed by AMADOR QUINTANILLA ([id number]) on 07/03/2025 11:45:16 AM GEMUSE 07/02/2025 12:3 9 PM EDT 07/03/2025 11:45 AM EDT Jodie Healy DO ECG ORDERABLES Final Result GEMUSE from Last 3 Months Insurance MEDICARE Advance [...] currently active code status orders. Care Teams Fluid Power Mechanic Relationship Specialty Start Date End Date Pepe Murrieta MD [address] [place] [address] PCP - General 09/27/16
== END 2025-08-28 10:10 | disposition home or self-care (01) ==
LOC: HO.MAMMO 10:09
PROVIDERS: PCP Internal Medicine; Visit Provider Internal Medicine
DX: Z12.31 Encounter for screening mammogram for malignant neoplasm of breast (principal); Z13.820 Encounter for screening for osteoporosis; M85.89 Other specified disorders of bone density and structure, multiple sites
CPT/HCPCS: 77063; 77067; 77080

== ENCOUNTER → 2025-08-28 10:30 | Outpatient (BNV) | payer MEDICARE, SELFPAY | PROVIDERS: PCP Internal Medicine; Visit Provider Radiology Diagnostic Radiology | DX: E28.39 Other primary ovarian failure (principal) | CPT/HCPCS: 77080 ==

== ENCOUNTER 2025-08-28 11:00 | Outpatient (AMB) | payer MEDICARE, SELFPAY ==
--- NOTE | 2025-08-28 11:04 | MHC.OFFVIS ---
Vital Signs 08/28/25 11:11 Height 5 ft 5 in Weight 157 lb BMI 26.1 BP 120/90 H Blood Pressure Location Lt brachial Position Sitting Respiration 17 Pulse 86 Pulse Oximetry (%) 98 Intake Visit Reasons: 4weeks MCI Allergies amoxicillin Allergy (Severe, Verified 08/28/25 11:09) Vomiting Sulfa (Sulfonamide Antibiotics) Allergy (Mild, Verified 07/09/25 10:58) HIVES inositol niacinate (Niacin No Flush) Allergy (Unknown, Verified 07/09/25 10:58) N/V niacin (Niacin No Flush) Allergy (Unknown, Verified 07/09/25 10:58) N/V HPI Comments Details: Mariposa is a 69-year-old female patient with a past medical history of mild cognitive impairment, restless leg, neuropathy, insomnia, hypertension, balance difficulties, sleep disorder, hyperlipidemia, GERD, depression, and anxiety who is here today for a follow-up visit. She saw Dr. Murrieta on 07/23/2025. At that time, she noticed some difficulties remembering various tasks and events which had progressively worsened. She also had reported insomnia with difficulty managing sleep primarily due to frequent nocturia. Insomnia however had been difficult for many years and in the past she was started on gabapentin and was taking 150 mg for both her sleep and neuropathy. She was recommended a serum cerebral amyloid load test and continued use of gabapentin. It was also considered she should see OBGYN for frequent urination during the night. Her amyloid doses test from 07/23/2025 showed low likelihood. She is here today for follow up and tells me that she continues to have some difficulty with memory though she continues to have very poor sleep. She feels that it makes her dingy and more accident prone. She is not forgetting appointments or basic things though she does note that her mcfp memory is poor. She goes to bed around 11pm and awakes several times through the night. She is not sure if she snores but believes that she might. She also notes that she has twitching legs and they are restless. She was trialed on ropinirole in the past through primary care though this gave her adverse effects. She can not recall specifically what side effects she experienced. She also has neuropathy symptoms including zap like sensations in various areas of her body that started after a shingles infection. She feels that this is not overly bothersome but can become more bothersome while she is lying down in bed at night. She has been taking her 's gabapentin. She takes 150 mg nightly but was never formally prescribed gabapentin. She has taken 300 mg in the past which was even more beneficial to her though because she does not have her own supply she has been only taking 150 mg nightly. She feels that her sleep is slightly better with the gabapentin but still she is waking up several times during the night sometimes to urinate but not always. [facility] Medical History (Updated 08/28/25 @ 11:45 by Geri Posey CNP) Insomnia Hypertension, essential Hyperlipidemia COPD (chronic obstructive pulmonary disease) Nicotine dependence, cigarettes, uncomplicated Cough [id number] condition Osteopenia (~2009) Bladder disorder Dysuria Hiatal hernia Gallstones Post-cholecystectomy syndrome Nausea and vomiting Major depression, recurrent Anxiety Restless leg syndrome Renal cyst, left Shortness of breath Menopause Surgical History History of cholecystectomy (~03/2022) History of colonoscopy History of esophagogastroduodenoscopy (EGD) History of endometrial ablation Family History Father Diabetes Liver cancer Mother HTN (hypertension) Other Mental health disorder Substance use disorder Social History Housing: House Alcohol intake: never Patient Tobacco Use Status: Current everyday Tobacco user Tobacco use type: Cigarette Years Smoked: (onset 20yo, 1/2ppd x 46yrs, 23pyh) e-Cigarette/Vaping Use: Never Used Second Hand Smoke Exposure: Yes service: No Current occupational status: employed Cognitive needs: No Hearing needs: No Vision needs: Yes Female Reproductive History Menstrual Age of Menarche: 11 Physical Exam Vital Signs: Last Vital Signs Pulse 86 08/28/25 11:11 Resp 17 08/28/25 11:11 BP 120/90 H 08/28/25 11:11 Pulse Ox 98 08/28/25 11:11 BMI result Body Mass Index 26.1 Assessment & Plan Assessment & Plan (1) MCI (mild cognitive impairment): Code(s): G31.84 - Mild cognitive impairment of uncertain or unknown etiology Category: Medical (2) Insomnia: Code(s): G47.00 - Insomnia, unspecified Category: Medical Qualifiers: Insomnia type: psychophysiologic Qualified Code(s): F51.04 - Psychophysiologic insomnia (3) Sleep disorder: Code(s): G47.9 - Sleep disorder, unspecified Category: Medical (4) Neuropathy: Code(s): G62.9 - Polyneuropathy, unspecified Category: Medical Plan Mariposa is a 69-year-old female patient with a past medical history of mild cognitive impairment, restless leg, neuropathy, insomnia, hypertension, balance difficulties, sleep disorder, hyperlipidemia, GERD, depression, and anxiety who is here today for a follow-up visit. She has been taking her 's gabapentin at 150 mg nightly which has been beneficial though has had improvement even further with 300 mg at bedtime. She has not been formally. I will start by prescribing gabapentin which will hopefully help with her sleep quality, restless leg, and neuropathy symptoms. And assistance with her sleep, I am hoping that her cognition improves and she feels more rested throughout the day. If this is not the case, I would consider a sleep study to rule out JANETH which can also cause memory impairment and can be associated with restless leg. -300mg gabapentin -Consider sleep study if there is no improvement in sleep or RLS with use of gabapentin -Follow-up in 3 months Medications: New gabapentin 300 mg PO BEDTIME 90 caps 3RF 90 days Coding Level of Care Code Est Pt Level 4 (09300) Diagnoses MCI (mild cognitive impairment) G31.84 Psychophysiological insomnia F51.04 Insomnia type: psychophysiologic Sleep disorder G47.9 Neuropathy G62.9
[2025-08-28 11:11] VITALS: BP 120/90; PULSE 86; RESP 17; O2SAT 98; BMI 26.1
== END 2025-08-28 11:39 | disposition home or self-care (01) ==
LOC: HO.HSM 11:01
PROVIDERS: PCP Internal Medicine; Visit Provider Nurse Practitioner
DX: G31.84 Mild cognitive impairment of uncertain or unknown etiology (principal); F51.04 Psychophysiologic insomnia; G47.9 Sleep disorder, unspecified; G62.9 Polyneuropathy, unspecified
CPT/HCPCS: 99214

== ENCOUNTER 2025-08-29 08:45 | Outpatient (RCR) | payer MEDICARE, SELFPAY | END 2025-08-29 16:28 | disposition home or self-care (01) | LOC: HO.WCC 08:45 | PROVIDERS: PCP Internal Medicine; Visit Provider Surgery Vascular Surgery | DX: L97.822 Non-pressure chronic ulcer of other part of left lower leg with fat layer exposed (principal); I10 Essential (primary) hypertension; G62.9 Polyneuropathy, unspecified; F17.210 Nicotine dependence, cigarettes, uncomplicated | CPT/HCPCS: 11042; 11045; 99212; 99213 ==

== ENCOUNTER 2025-09-19 08:56 | Outpatient (AMB) | payer MEDICARE, SELFPAY ==
[2025-09-19 08:58] VITALS: BP 126/80; PULSE 70; O2SAT 96; BMI 26.1
--- NOTE | 2025-09-19 08:58 | A.OFFPC_ITS ---
Vital Signs 09/19/25 08:58 Height 5 ft 5 in Intake Visit Reasons: AWV G0438 Allergies amoxicillin Allergy (Severe, Verified 08/28/25 11:09) Vomiting Sulfa (Sulfonamide Antibiotics) Allergy (Mild, Verified 07/09/25 10:58) HIVES inositol niacinate (Niacin No Flush) Allergy (Unknown, Verified 07/09/25 10:58) N/V niacin (Niacin No Flush) Allergy (Unknown, Verified 07/09/25 10:58) N/V Tobacco use date assessed: 01/29/25 Dental Screening Dental Screen Date: 01/29/25 FOR[facility]LY [facility] Medical History (Updated 08/28/25 @ 11:45 by Geri Posey CNP) Insomnia Hypertension, essential Hyperlipidemia COPD (chronic obstructive pulmonary disease) Nicotine dependence, cigarettes, uncomplicated Cough [id number] condition Osteopenia (~2009) Bladder disorder Dysuria Hiatal hernia Gallstones Post-cholecystectomy syndrome Nausea and vomiting Major depression, recurrent Anxiety Restless leg syndrome Renal cyst, left Shortness of breath Menopause Surgical History History of cholecystectomy (~03/2022) History of colonoscopy History of esophagogastroduodenoscopy (EGD) History of endometrial ablation Family History Father Diabetes Liver cancer Mother HTN (hypertension) Other Mental health disorder Substance use disorder Social History Housing: House Alcohol intake: never Patient Tobacco Use Status: Current everyday Tobacco user Tobacco use type: Cigarette Years Smoked: (onset 20yo, 1/2ppd x 46yrs, 23pyh) e-Cigarette/Vaping Use: Never Used Second Hand Smoke Exposure: Yes service: No Current occupational status: employed Cognitive needs: No Hearing needs: No Vision needs: Yes Female Reproductive History Menstrual Age of Menarche: 11 Questionnaire Thrive Questionnaire Date Thrive assessed: 01/19/25 I am a: Patient What is your living situation today?: I have a steady place to live Within the past 12 months, did the food you bought not last and you didn't have the money to get more?: Never true Within the past 12 months, did you worry whether your food would run out before you got money to buy more?: Never true Do you have trouble paying for medicines?: No Do you have trouble getting transportation to medical appointments?: No Do you have trouble paying your heating and electricity bill?: No Do you have trouble taking care of your child, family member or friend?: No Do you have trouble with day-to-day activities such as bathing, preparing meals, shopping, managing finances, etc.?: No Are you currently unemployed and looking for a job?: No Are you interested in more education?: No Please select the resources that you would like help with: None Currently or been in a relationship where the following occur: No concerns reported THRIVE Score: 0 KELLY-7 AMB Questionnaire KELLY-7 Date KELLY - 7 assessed: 01/29/25 Source: Developed by Drs. Vinnie Draper, Casie Ribeiro, Rainer Goodman and colleagues, with an educational ella from [employer]. Physical exam (Primary Care) Tobacco/Smoking Status: Tobacco use Status Tobacco use date assessed 01/29/25 06/04/25 09:08 Patient Tobacco Use Status Current everyday Tobacco 07/09/25 11:02 Tobacco use type Cigarette 06/04/25 09:08 e-Cigarette/Vaping Use Never Used 06/04/25 09:08 Thrive Assessment: Date of Thrive Assessment Date Thrive assessed 01/19/25 09/19/25 08:56 Currently or been in a relationship where the following occur: No concerns reported Coding
--- NOTE | 2025-09-19 09:00 | A.OFFVIS_ITS ---
Intake Vital Signs 09/19/25 08:58 Height 5 ft 5 in Weight 157 lb BMI 26.1 BP 126/80 Blood Pressure Location Lt brachial Position Sitting Pulse 70 Pulse Source Pulse Oximeter Pulse Oximetry (%) 96 Intake Visit Reasons: AWV G0438 Allergies amoxicillin Allergy (Severe, Verified 09/19/25 09:00) Vomiting Sulfa (Sulfonamide Antibiotics) Allergy (Mild, Verified 09/19/25 09:00) HIVES inositol niacinate (Niacin No Flush) Allergy (Unknown, Verified 09/19/25 09:00) N/V niacin (Niacin No Flush) Allergy (Unknown, Verified 09/19/25 09:00) N/V Medication List - Last Reconciled 09/19/25 by Pepe Murrieta MD albuterol sulfate 90 mcg/actuation 1 inh inhalation QID PRN amlodipine 5 mg PO DAILY atenolol 50 mg PO DAILY clonidine HCl 0.05 mg (1/2 x 0.1 mg) PO BEDTIME dicyclomine 20 mg PO QID 90 days NS escitalopram oxalate 10 mg PO DAILY gabapentin 300 mg PO BEDTIME 90 days losartan 50 mg PO BID 90 days mupirocin 2% 1 appl topical TID pantoprazole 40 mg PO BID 30 days sucralfate 1 g PO QID valacyclovir 500 mg PO DAILY PRN HPI AWV G0438 HPI Details History of Present Illness The patient is a 70 year old individual presenting for an annual wellness visit and to discuss recent falls and balance issues. Recurrent Falls: - The patient has a history of multiple falls this year. - One fall occurred on when e patient fell down the stairs, resulting in a leg wound with significant skin loss which required care at a wound center. - Another fall occurred on July 30 w hen a chair slipped in the shower, causing the patient to fall onto the left side. - The patient admits to falling down the stairs more than twice but notes the Labor Day fall was the one that caused significant injury. - The patient expressed concern that med ications may be causing dizziness, contributing to the falls. - The patient reports needing to hold on to things for support when mobile. Peripheral Neuropathy: - The patient reports symptoms consisten t with peripheral neuropathy in both feet, including numbness and a sensation of wearing socks when barefoot. - At night, the patient experiences burn ing and uncontrollable itching in the feet, which is sometimes alleviated by soaking them in cold water. - The patient also reports stabbing pain s that feel like electrical shocks. Balance Impairment: - The patient exhibits poor balance, as noted during an attempt at tandem gait during the physical exam. - This is a new problem for which the pa tient has not been evaluated by a neurologist. Insomnia: - The patient has a history of poor slee p and has seen a neurologist for this issue. - The patient is taking gabapentin, pres cribed by neurology for sleep, but reports it is not effective. she has apt to discuss that further Social History: - Functional Status: The patient is reti red and independent with driving, finances, grocery shopping, cooking, and cleaning. - Substance Use: The patient denies drin arthur alcohol for 19 years and smokes marijuana but not in relation to the instances of falls. - Mobility: The patient reports needing to hang onto things for support. - Home Environment: The patient lives in an old house with narrow stairs. Family History: - The patient's has neuropathy. Diagnostic Results: - Mammogram: Up to date. - Bone Density Test: Completed recently. - Urinalysis: Negative for infection, th ough urine is cloudy. - Neuropsychological Testing: Recent shelley t showed no indication of Alzheimer's disease. Problem List - Recurrent falls - Peripheral neuropathy - Gait and balance impairment - Insomnia - Leg wound healing, established with [facility] - History of herpes zoster - Preventative care: Annual wellness exa m - Preventative care: Mammogram screening - Preventative care: Bone density screen ing Plan - A new referral will be placed for the patient to see a neurologist for evaluation of new-onset balance problems and neuropathy. - Advised the patient that the neurologi st will likely perform nerve tests on the feet to evaluate for neuropathy. - Advised the patient to increase water intake to address cloudy urine. - The patient will speak with the [facility] neurologist about the ineffectiveness of gabapentin for insomnia. - Provided the patient with [facility] fel[facility]av[facility] paperwork to complete and bring to the next appointment. - The patient is scheduled to follow up in December. Review of Systems - Genitourinary: Reports cloudy urine. - General: No fever no chills - Ear nose throat: No sore throat no hearing difficulty no ear pain - Cardiovascular: No syncope, no chest pain, no palpitations - Gastrointestinal: No nausea vomiting or diarrhea - Endocrine: No polyuria polydipsia no heat intolerance Physical Exam General: No acute distress HEENT: No acute findings Neck: Supple Respiratory system: Able to talk in full sentences, no audible wheeze Cardiovascular: S1-S2 regular in rate and rhythm Gastrointestinal: No pain Extremities: Left leg with wound care, history of falls ADMINISTRATIVE SUPPORT ASSISTANT: Alert awake oriented x3 motor intact, balance intact, tendam failed Skin: Normal turgor, left leg with wound healing well HPI Comments History of Present Illness Details AWV medical/social history reviewed Past medical history reviewed [place] of care / care team list updated Surgical/ hospitalization history reviewed Current medications including OTC and supplements reviewed Family history reviewed Tobacco controlled form updated Alcohol use form updated Illicit drug use in social history reviewed Current diagnosis of depression screening updated Appropriate PHQ 2/PHQ-9 completed MMSE completed . Fall risk: Assessed Fall history: yes Have you had any falls with injury in the past year? yes Have you had 2 or more falls in the past year? yes Fall risk assessment completed HRA filled out by the patient reviewed by provider and scanned . Examination IPPE/AWE: Balance intact Romberg intact Tandem walk failed walk-in turn intact rise from sit to stand intact . Hearing whisper test pass Medication list reviewed, patient is stable on medications All other providers patient is seeing discussed and noted PPP handed to patient [facility] Medical History Insomnia Hypertension, essential Hyperlipidemia COPD (chronic obstructive pulmonary disease) Nicotine dependence, cigarettes, uncomplicated Cough [id number] condition Osteopenia (~2009) Bladder disorder Dysuria Hiatal hernia Gallstones Post-cholecystectomy syndrome Nausea and vomiting Major depression, recurrent Anxiety Restless leg syndrome Renal cyst, left Shortness of breath Menopause Surgical History History of cholecystectomy (~03/2022) History of colonoscopy History of esophagogastroduodenoscopy (EGD) History of endometrial ablation Family History Father Diabetes Liver cancer Mother HTN (hypertension) Other Mental health disorder Substance use disorder Social History Housing: House Alcohol intake: never Patient Tobacco Use Status: Current everyday Tobacco user Tobacco use type: Cigarette Years Smoked: (onset 20yo, 1/2ppd x 46yrs, 23pyh) e-Cigarette/Vaping Use: Never Used Second Hand Smoke Exposure: Yes service: No Current occupational status: employed Cognitive needs: No Hearing needs: No Vision needs: Yes Female Reproductive History Menstrual Age of Menarche: 11 Questionnaire Medicare Wellness Checkup What [age] What gender do you identify with?: female During the past 4 weeks, how much have you been bothered by emotional problems such as feeling anxious, depressed, irritable, sad or downhearted, and blue?: not at all During the past 4 weeks, has your physical & emotional health limited your soc ial activities with family, friends, neighbors, or groups?: slightly During the past 4 weeks, how much bodily pain have you generally had?: very mild pain During the past 4 weeks, was someone available to help you if you needed & wanted help?: yes, as much as I wanted During the past 4 weeks, what was the hardest physical activity you could do for at least 2 minutes?: light Can you get to places out of walking distance without help? (For eg., can you travel alone on buses, taxis or drive your car?): Yes Can you go shopping for groceries or clothes without someone's help?: Yes Can you prepare your own meals?: Yes Can you do your housework without help?: Yes Because of any health problems, do you need the help of another person with your personal care needs such as eating, bathing, dressing or getting around the house?: No Can you handle your own money without help?: Yes During the past 4 weeks, how would you rate your health in general?: very good During the past 4 weeks how have things been going for you?: pretty well Are you having difficulties driving your car?: no Do you always fasten your seat belt when you are in a car?: yes, sometimes During past 4 weeks, have you been bothered by the following: never: Sexual problems? and Problems using the telephone? and sometimes: Falling or dizzy when standing up, Trouble eating well?, Teeth or denture problems? and Tiredness or fatigue? Have you fallen 2 or more times in the past year?: Yes Are you afraid of falling?: Yes Are you a smoker?: yes, but I'm not ready to quit During the past 4 weeks, how many drinks of wine, beer, or other alcoholic beverages did you have?: no alcohol at all Do you exercise for about 20 minutes 3 or more times a week?: no, I usually do not exercise this much Have you been given information to help with the following?: no: Hazards in your house that might hurt you? and no: Keeping track of your medications? How often do you have trouble taking medicines the way you have been told to take them?: I always take medicine as prescribed How confident are you that you can control & manage most of your health problems?: very confident What is your race?: White Mini Mental State Exam (MMSE) Orientation What is the (year) (season) (date) (day) (month)?: year, season, date, day and month Where are we (state) (county) (town or city) (hospital) (floor)?: state, county, town or city, hospital/clinic and floor Score Score: 10 Activity of Daily Living Bathing - sponge bath, tub bath or shower: receives no assistance (gets in/out by self, if usual bathing means Dressing - getting clothes from closets & drawers, including inner/outer garments & fasteners.: gets clothes & gets completely dressed without help Toileting - going to the 'toilet room' for urine/bowel elimination & cleaning self/arranging clothes: goes to toilet room, cleans self, arranges clothes without help Transfer: moves in & out of bed and chair without help (may use support object) Continence: controls urination/bowel movements completely by self Feeding: feeds self without help Total Score: 0 Information obtained from: patient Using telephone: independent Traveling: independent Shopping: independent Preparing meals: independent Housework: independent Taking medicine: independent Managing money: independent PHQ-9 Over the last 2 weeks, how often have you been bothered by any of the following problems? 1. Little interest or pleasure in doing things: several days 2. Feeling down, depressed, or hopeless: several days 3. Trouble falling or staying asleep, or sleeping too much: not at all 4. Feeling tired or having little energy: nearly every day 5. Poor appetite or overeating: several days 6. Feeling bad about yourself - or that you are a failure or have let yourself or your family down: not at all 7. Trouble concentrating on things, such as reading the newspaper or watching television: not at all 8. Moving or speaking so slowly that other people could have noticed. Or the opposite - being so fidgety or restless that you have been moving around a lot more than usual: not at all 9. Thoughts that you would be better off or of hurting yourself in some way: not at all Total score: 6 Depression Screening Interpretation: Negative Depression Screening Done: Yes 60565 - PHQ-9 Billing: Yes Source: Developed by Drs. Vinnie Draper, Casie Ribeiro, Rainer Goodman and colleagues, with an educational ella from [employer]. Physical Exam Vital Signs: Last Vital Signs Pulse 70 09/19/25 08:58 BP 126/80 09/19/25 08:58 Pulse Ox 96 09/19/25 08:58 BMI result Body Mass Index 26.1 Results AMB Urinalysis, Automated UA Leukoctes 0 Carie/uL Last Edit by Fran Salinas CMA on 09/19/25 09:15 UA Nitrite Negative Last Edit by Fran Salinas CMA on 09/19/25 09:15 UA Urobilinogen 0.2 mg/dL Last Edit by Fran Salinas CMA on 09/19/25 09 :15 UA Protein 0 mg/dL Last Edit by Fran Salinas CMA on 09/19/25 09:15 UA pH 6.0 Last Edit by Fran Salinas CMA on 09/19/25 09:15 UA Blood 0 Martin/uL Last Edit by Fran Salinas CMA on 09/19/25 09:15 UA Specific [place] 0 Last Edit by Fran Salinas CMA on 09/19/25 09:15 UA Ketone Negative Last Edit by Fran Salinas CMA on 09/19/25 09:15 UA Bilirubin 0 mg/dL Last Edit by Fran Salinas CMA on 09/19/25 09:15 UA Glucose 0 mg/dL Last Edit by Fran Salinas CMA on 09/19/25 09:15 Results Reviewed Results Reviewed: Laboratory Last Values Urine pH (Auto) 6.0 09/19/25 09:14 Specific [place] (Auto) 0 09/19/25 09:14 Urine Protein (Auto) 0 mg/dL 09/19/25 09:14 Glucose (UA)(Auto) 0 mg/dL 09/19/25 09:14 Urine Ketones (Auto) Negative 09/19/25 09:14 Urine Blood (Auto) 0 Martin/uL 09/19/25 09:14 Urine Nitrite (Auto) Negative 09/19/25 09:14 Urine Bilirubin (Auto) 0 mg/dL 09/19/25 09:14 Urine Urobilinogen (Auto) 0.2 mg/dL 09/19/25 09:14 Leukocyte Esterase (Auto) 0 Carie/uL 09/19/25 09:14 Assessment & Plan Assessment & Plan (1) Medicare annual wellness visit, subsequent: Code(s): Z00.00 - Encounter for general adult medical examination without abnormal findings (2) Recurrent falls: Code(s): R29.6 - Repeated falls (3) Numbness and tingling of both feet: Code(s): R20.0 - Anesthesia of skin; R20.2 - Paresthesia of skin (4) Insomnia: Code(s): G47.00 - Insomnia, unspecified Qualifiers: Insomnia type: psychophysiologic Qualified Code(s): F51.04 - Psychophysiologic insomnia (5) Leg wound, left: Code(s): S81.802A - Unspecified open wound, left lower leg, initial encounter Qualifiers: Encounter type: sequela Qualified Code(s): S81.802S - Unspecified open wound, left lower leg, sequela Plan Problem List - Recurrent falls - Peripheral neuropathy - Gait and balance impairment - Insomnia - Leg wound - History of herpes zoster - Preventative care: Annual wellness exam - Preventative care: Mammogram screening - Preventative care: Bone density screening Plan - A new referral will be placed for the patient to see a neurologist for evaluation of new-onset balance problems and neuropathy. - Advised the patient that the neurologist will likely perform nerve tests on the feet to evaluate for neuropathy. - Advised the patient to increase water intake to address cloudy urine. - The patient will speak with the prescribing neurologist about the ineffectiveness of gabapentin for insomnia. - Provided the patient with healthcare proxy paperwork to complete and bring to the next appointment. - The patient is scheduled to follow up in December. Orders: Orders AMB Urinalysis Automated Today Z13.9 - Encounter for screening, unspecified Referrals Neurology Referral R20.0 - Anesthesia of skin, R20.2 - Paresthesia of skin, R29.6 - Repeated falls Quality Reporting (2019) Depression/Bipolar (159/160/161/177) PHQ-9: Total score: 6 Coding Level of Care Code Medicare Subsequent (G0439) Est Pt Level 4 (48565) Diagnoses Medicare annual wellness visit, subsequent Z00.00 Recurrent falls R29.6 Numbness and tingling of both feet R20.0; R20.2 Psychophysiological insomnia F51.04 Insomnia type: psychophysiologic Wound of left lower extremity, sequela S81.802S Encounter type: sequela Additional Codes PHQ-9 - 80844 - PHQ-9 Billing: Yes ([id number])
--- OUTSIDE RECORDS SUMMARY | 2025-09-19 09:08 | XMS_ITS | Clinical Summary ---
Author Organization Patient Business Ser [facility] [place] Address [address] [place] [address] Care Team Providers Care Therapist Rrt Name Role Phone Pepe Murrieta MD Primary Care Provider [phone] Allergies Active Allergy Reactions Criticality Noted Date [...] EDT - 07/02/2025 6:52 PM EDT Emergency [facility] Emergency [address] [place] [address] Aranza Gant MD Nausea and vomiting, unspecified vomiting type (Primary Dx); Hypokalemia Discharge Disposition: Home or Self Care from Last 3 Months Surgical History Surgery Date Site/Laterality Comments CHOLECYSTECTOMY PROCEDURE: [place] LAPAROSCOPY SURG CHOLECYSTECTOMY Medical History Medical History [...] * (ABNORMAL) CBC (07/02/2025 4:46 PM EDT) [facility] Signature WBC 14.7(H) 4.8 - 10.8 K/mcL LAB HEMETOLOGY METHOD 07/02/2025 5:56 PM EDT [facility] RBC 5.00(H) 3.80 - 4.80 M/mcL LAB HEMETOLOGY METHOD 07/02/2025 5:56 PM EDT [facility] Hemoglobin 15.1 11.5 - 16.0 g/dL LAB HEMETOLOGY METHOD 07/02/2025 5:56 PM EDT [facility] Hematocrit 44.0 35.0 - 47.0 % LAB HEMETOLOGY METHOD 07/02/2025 5:56 PM EDT [facility] MCV 88.9 79.0 - 98.0 FL LAB HEMETOLOGY METHOD 07/02/2025 5:56 PM EDT [facility] MCH 30.5 27.0 - 32.0 pcg LAB HEMETOLOGY METHOD 07/02/2025 5:56 PM EDT [facility] MCHC 34.3 32.0 - 37.0 g/dL LAB HEMETOLOGY METHOD 07/02/2025 5:56 PM EDT [facility] RDW 14.4 11.0 - 15.0 % LAB HEMETOLOGY METHOD 07/02/2025 5:56 PM EDT [facility] Platelets 335 130 - 400 K/mcL LAB HEMETOLOGY METHOD 07/02/2025 5:56 PM EDT [facility] MPV 11.1(H) 7.0 - 11.0 FL LAB HEMETOLOGY METHOD 07/02/2025 5:56 PM EDT [facility] NRBC 0.0 <1.0 % LAB HEMETOLOGY METHOD 07/02/2025 5:56 PM EDT [facility] NRBC Absolute 0.00 <0.10 K/mcL LAB HEMETOLOGY METHOD 07/02/2025 5:56 PM EDT [facility] Blood Venous blood specimen / Unknown Venipuncture / Unknown 07/02/2025 4:46 PM EDT 07/02/2025 5:25 PM EDT us Aranza Gant MD LAB BLOOD ORDERABLES Final Res ult [facility] [address] [place] [address], * (ABNORMAL) Urinalysis with reflex microscopic (07/02/2025 2:19 PM EDT) Specific [place] Urine 1.025 1.003 - 1.030 LAB URINALYSIS - AUTOMATED METHOD 07/02/2025 3:11 PM [facility] pH, Urine 6.0 5.0 - 8.0 pH LAB URINALYSIS - AUTOMATED METHOD 07/02/2025 3:11 PM [facility] Leukocytes, Urine Negative Negative LAB URINALYSIS - AUTOMATED METHOD 07/02/2025 3:11 PM [facility] Nitrite, Urine Negative Negative LAB URINALYSIS - AUTOMATED METHOD 07/02/2025 3:11 PM [facility] Protein, Urine 30(A) <=Trace mg/dL LAB URINALYSIS - AUTOMATED METHOD 07/02/2025 3:11 PM [facility] Glucose, Urine 500(A) Negative mg/dL LAB URINALYSIS - AUTOMATED METHOD 07/02/2025 3:11 PM [facility] Ketones, Urine 15(A) Negative mg/dL LAB URINALYSIS - AUTOMATED METHOD 07/02/2025 3:11 PM [facility] Urobilinogen, Urine 0.2 0.2 - 1.0 mg/dL LAB URINALYSIS - AUTOMATED METHOD 07/02/2025 3:11 PM [facility] Bilirubin, Urine Negative Negative LAB URINALYSIS - AUTOMATED METHOD 07/02/2025 3:11 PM [facility] Blood, Urine Negative Negative LAB URINALYSIS - AUTOMATED METHOD 07/02/2025 3:11 PM [facility] RBC, Urine 1.6 0 - 4 /HPF LAB URINALYSIS - AUTOMATED METHOD 07/02/2025 3:11 PM [facility] WBC, Urine 6.1(H) 0 - 4 /HPF LAB URINALYSIS - AUTOMATED METHOD 07/02/2025 3:11 PM [facility] Squamous Epithelial, Urine >100(H) 0 - 60 /LPF LAB URINALYSIS - AUTOMATED METHOD 07/02/2025 3:11 PM EDT [facility] Bacteria, Urine Few(A) Negative /HPF LAB URINALYSIS - AUTOMATED METHOD 07/02/2025 3:11 PM EDT [facility] Hyaline Casts, Urine 3.0 0 - 3 /LPF LAB URINALYSIS - AUTOMATED METHOD 07/02/2025 3:11 PM EDT [facility] Urine Urine specimen obtained by clean catch procedure / Unknown Non-blood Collection / Unknown 07/02/2025 2:19 PM EDT 07/02/2025 2:39 PM EDT us Aranza Gant MD LAB URINE ORDERABLES Final Res ult [facility] [address] [place] [address], [place] [phone] * XR Chest 1 View (07/02/2025 12:46 [...] Signed Date: 07/02/2025 12:57 ET Workstation ID: [id number] Transcribed By: Self Edit Transcribed Date: 07/02/2025 [...] Signed Date: 07/02/2025 12:57 ET Workstation ID: [id number] Transcribed By: Self Edit Transcribed Date: 07/02/2025 12:56 ET us Jodie Healy DO IMG XR PROCEDURES Final Resul t * Troponin I high sensitivity (07/02/2025 12:45 PM EDT) Pathologist [facility] High Sensitivity Troponin I 9 <=54 ng/L LAB CHEMISTRY METHOD 07/02/2025 2:31 PM EDT [facility] Blood Venous blood specimen / Unknown Venipuncture / Unknown 07/02/2025 12:45 PM EDT 07/02/2025 1:52 PM EDT Narrative [facility] - 07/02/2025 2:31 PM EDT High levels of biotin in samples may falsely decrease hsTroponin values. Use caution when interpreting hsTroponin results in patients taking biotin who exhibit renal impairment (eGFR <60) or in patients taking more than 20 mg/day of biotin. us Jodie Healy DO LAB BLOOD ORDERABLES Final Re sult [facility] [address] [place] [address], [place] [phone] * (ABNORMAL) CBC auto differential (07/02/2025 12:45 PM EDT) [facility] WBC 16.5(H) 4.8 - 10.8 K/mcL LAB HEMETOLOGY METHOD 07/02/2025 2:01 PM [facility] RBC 4.80 3.80 - 4.80 M/mcL LAB HEMETOLOGY METHOD 07/02/2025 2:01 PM [facility] Hemoglobin 14.6 11.5 - 16.0 g/dL LAB HEMETOLOGY METHOD 07/02/2025 2:01 PM [facility] Hematocrit 42.9 35.0 - 47.0 % LAB HEMETOLOGY METHOD 07/02/2025 2:01 PM [facility] MCV 89.0 79.0 - 98.0 FL LAB HEMETOLOGY METHOD 07/02/2025 2:01 PM [facility] MCH 30.3 27.0 - 32.0 pcg LAB HEMETOLOGY METHOD 07/02/2025 2:01 PM [facility] MCHC 34.0 32.0 - 37.0 g/dL LAB HEMETOLOGY METHOD 07/02/2025 2:01 PM [facility] RDW 14.3 11.0 - 15.0 % LAB HEMETOLOGY METHOD 07/02/2025 2:01 PM [facility] Platelets 357 130 - 400 K/mcL LAB HEMETOLOGY METHOD 07/02/2025 2:01 PM [facility] MPV 11.1(H) 7.0 - 11.0 FL LAB HEMETOLOGY METHOD 07/02/2025 2:01 PM [facility] NRBC 0.0 <1.0 % LAB HEMETOLOGY METHOD 07/02/2025 2:01 PM [facility] NRBC Absolute 0.00 <0.10 K/mcL LAB HEMETOLOGY METHOD 07/02/2025 2:01 PM [facility] Neutrophils Relative 76.8 % LAB HEMETOLOGY METHOD 07/02/2025 2:01 PM [facility] Lymphocytes Relative 15.1 % LAB HEMETOLOGY METHOD 07/02/2025 2:01 PM [facility] Monocytes Relative 6.7 % LAB HEMETOLOGY METHOD 07/02/2025 2:01 PM [facility] Eosinophils Relative 0.2 % LAB HEMETOLOGY METHOD 07/02/2025 2:01 PM [facility] Basophils Relative 0.2 % LAB HEMETOLOGY METHOD 07/02/2025 2:01 PM [facility] Immature Granulocytes Relative 1.0 % LAB HEMETOLOGY METHOD 07/02/2025 2:01 PM [facility] Neutrophils Absolute 12.66(H) 1.50 - 7.00 K/mcL LAB HEMETOLOGY METHOD 07/02/2025 2:01 PM [facility] Lymphocytes Absolute 2.50 1.00 - 5.00 K/mcL LAB HEMETOLOGY METHOD 07/02/2025 2:01 PM [facility] Monocytes Absolute 1.11(H) 0.20 - 1.00 K/mcL LAB HEMETOLOGY METHOD 07/02/2025 2:01 PM [facility] Eosinophils Absolute 0.04 0.00 - 0.50 K/mcL LAB HEMETOLOGY METHOD 07/02/2025 2:01 PM [facility] Basophils Absolute 0.04 0.00 - 0.20 K/mcL LAB HEMETOLOGY METHOD 07/02/2025 2:01 PM [facility] Immature Granulocytes Absolute 0.17(H) 0.00 - 0.03 K/mcL LAB HEMETOLOGY METHOD 07/02/2025 2:01 PM [facility] Blood Venous blood specimen / Unknown Venipuncture / Unknown 07/02/2025 12:45 PM EDT 07/02/2025 1:[address] [facility] LAB BLOOD ORDERABLES Final Re sult Performing Organization Address [facility]/ZIP Co de Phone Number [facility] [address] [place] [address], [place] [phone] * (ABNORMAL) B-type natriuretic peptide (07/02/2025 12:45 PM EDT) BNP 250(H) <=100 pcg/mL LAB CHEMISTRY METHOD 07/02/2025 2:33 PM EDT [facility] Blood Venous blood specimen / Unknown Venipuncture / Unknown 07/02/2025 12:45 PM EDT 07/02/2025 1:52 PM EDT [facility] BLOOD ORDERABLES Final Re sult Performing Organization Address [facility] de Phone Number [facility] [address] [place] [address], [place] [phone] * (ABNORMAL) Magnesium (07/02/2025 12:45 PM EDT) Pathologist [facility] Magnesium 1.8(L) 1.9 - 2.6 mg/dL LAB CHEMISTRY METHOD 07/02/2025 2:48 PM EDT [facility] Blood Venous blood specimen / Unknown Venipuncture / Unknown 07/02/2025 12:45 PM EDT 07/02/2025 1:[address] [facility] LAB BLOOD ORDERABLES Final Re sult Performing Organization Address [facility]/ZIP Co de Phone Number [facility] [address] [place] [address], [place] [phone] * (ABNORMAL) Lipase (07/02/2025 12:45 PM EDT) Lipase 12(L) 13 - 75 unit/L LAB CHEMISTRY METHOD 07/02/2025 2:48 PM T [facility] Blood Venous blood specimen / Unknown Venipuncture / Unknown 07/02/2025 12:45 PM EDT 07/02/2025 1:52 PM EDT us Jodie Healy DO LAB BLOOD ORDERABLES Final Re sult [facility] [address] [place] [address], * (ABNORMAL) Comprehensive metabolic panel (07/02/2025 12:45 PM EDT) Pathologist [facility] Sodium 141 133 - 145 mmol/L LAB CHEMISTRY METHOD 07/02/2025 2:56 PM [facility] Potassium 3.0(L) 3.5 - 5.5 mmol/L LAB CHEMISTRY METHOD 07/02/2025 2:56 PM [facility] Chloride 109 96 - 110 mmol/L LAB CHEMISTRY METHOD 07/02/2025 2:56 PM [facility] CO2 19(L) 21 - 32 mmol/L LAB CHEMISTRY METHOD 07/02/2025 2:56 PM [facility] Anion Gap 13(H) 3 - 11 LAB CHEMISTRY METHOD 07/02/2025 2:56 PM [facility] Glucose 232(H) 70 - 100 mg/dL LAB CHEMISTRY METHOD 07/02/2025 2:56 PM [facility] BUN 11 5 - 25 mg/dL LAB CHEMISTRY METHOD 07/02/2025 2:56 PM [facility] Creatinine 0.83 0.50 - 1.10 mg/dL LAB CHEMISTRY METHOD 07/02/2025 2:56 PM [facility] eGFR 76 >=60 mL/min/1. 73m2 LAB CHEMISTRY METHOD 07/02/2025 2:56 PM EDT [facility] Comment:Calculation based on the Chronic Kidney Disease Epidemiology Collaboration (CKD-EPI) equation refit without adjustment for race. BUN/Creatinine Ratio 13.3 LAB CHEMISTRY METHOD 07/02/2025 2:56 PM EDT [facility] Calcium 9.8 8.5 - 10.5 mg/dL LAB CHEMISTRY METHOD 07/02/2025 2:56 PM EDT [facility] AST (SGOT) 19 10 - 42 unit/L LAB CHEMISTRY METHOD 07/02/2025 2:56 PM EDT [facility] ALT (SGPT) 12 10 - 60 unit/L LAB CHEMISTRY METHOD 07/02/2025 2:56 PM EDT [facility] Alkaline Phosphatase 114 42 - 121 unit/L LAB CHEMISTRY METHOD 07/02/2025 2:56 PM EDT [facility] Total Protein 6.7 6.0 - 8.0 g/dL LAB CHEMISTRY METHOD 07/02/2025 2:56 PM EDT [facility] Albumin 3.9 3.2 - 5.0 g/dL LAB CHEMISTRY METHOD 07/02/2025 2:56 PM EDT [facility] Total Bilirubin 0.8 0.0 - 1.4 mg/dL LAB CHEMISTRY METHOD 07/02/2025 2:56 PM EDT [facility] Blood Venous blood specimen / Unknown Venipuncture / Unknown 07/02/2025 12:45 PM EDT 07/02/2025 1:52 PM EDT us Jodie Healy DO LAB BLOOD ORDERABLES Final Re sult [facility] [address] [place] [address], * ECG 12 lead (07/02/2025 12:39 PM EDT) Ventricular Rate ECG 94 BPM GEMUSE Atrial Rate 94 BPM GEMUSE P-R Interval 194 ms GEMUSE QRS Duration 96 ms GEMUSE Q-T Interval 366 ms GEMUSE QTc 457 ms GEMUSE P Wave [place] 50 degrees GEMUSE R [place] 9 degrees GEMUSE T [place] 31 degrees GEMUSE ECG Interpretation Sinus rhythm [...] currently active code status orders. Care Teams Therapist Rrt Relationship Specialty Start Date End Date Peep Murrieta MD [address] [place] [address] PCP - General 09/27/16
== END 2025-09-19 09:23 | disposition home or self-care (01) ==
LOC: HO.HMCC 08:56
PROVIDERS: PCP Internal Medicine; Visit Provider Internal Medicine
DX: Z00.00 Encounter for general adult medical examination without abnormal findings (principal); R29.6 Repeated falls; R20.0 Anesthesia of skin; R20.2 Paresthesia of skin; F51.04 Psychophysiologic insomnia; S81.802S Unspecified open wound, left lower leg, sequela; Z13.9 Encounter for screening, unspecified

== ENCOUNTER → 2025-09-19 08:56 | Outpatient (BNVA) | payer MEDICARE, SELFPAY | PROVIDERS: PCP Internal Medicine; Visit Provider Internal Medicine | DX: Z13.31 Encounter for screening for depression (principal); Z13.9 Encounter for screening, unspecified | CPT/HCPCS: 81003; 96127 ==